=== PATIENT | female | born 2000 | race Asian ===

== ENCOUNTER → 2020-06-08 09:46 | Outpatient (BNVA) | payer BC, SELFPAY | PROVIDERS: Visit Provider Obstetrics & Gynecology | DX: Z76.89 Persons encountering health services in other specified circumstances (principal) ==

== ENCOUNTER → 2020-06-10 11:06 | Outpatient (BNVA) | payer BC, SELFPAY | PROVIDERS: Visit Provider Advanced Practice Midwife | DX: Z13.89 Encounter for screening for other disorder (principal) ==

== ENCOUNTER 2020-08-10 12:14 | Outpatient (REF) | payer BC, SELFPAY ==
--- NOTE | 2020-08-10 12:42 | XR_ITS ---
EXAMINATION: XR CHEST CLINICAL INFORMATION: Cough COMPARISON: Previous chest x-ray most recent February 2020 TECHNIQUE: 2 views of the chest were obtained. FINDINGS: The cardiac and mediastinal contours are normal. There is airspace disease seen in the right middle lobe suggestive of pneumonia. The lungs are otherwise clear. There is no pleural effusion or pneumothorax. Bony structures are unremarkable. XR/XR chest 2V IMPRESSION: Right middle lobe pneumonia.
[2020-08-10 14:02] LABS: MANUAL DIFF FLAG NO
[2020-08-10 14:11] LABS: Basophils Percent Auto 0.2 % (0-2); Hematocrit 42.2 % (37-47); Hemoglobin 13.8 g/dl (12.0-16.0); Imm Gran Abs Auto 0.01 X10*3/uL (0.00-0.03); Imm Gran Pct Auto 0.2 % (0.0-0.4); Lymphocytes Absolute Auto 2.3 X10*3/uL (1.2-4.9); Lymphocytes Percent Auto 35.2 % (20-40); Mean Corpuscular HGB Conc 32.7 g/dl (31.0-35.0); Mean Corpuscular Hemoglobin 29.6 pg (27.0-33.0); Mean Corpuscular Volume 90.6 fL (80-98); Mean Platelet Volume 11.4 fL (9.4-12.3); Monocytes Absolute Auto 0.6 X10*3/uL (0.1-1.2); Monocytes Percent Auto 9.2 % (2-11); Neutrophils Absolute Auto 3.5 X10*3/uL (2.0-8.3); Neutrophils Percent Auto 55.2 % (45-73); Platelet Count 201 X10*3/uL (160-400); Red Blood Count 4.66 X10*6/uL (4.20-5.50); Red Cell Distribution Width 13.7 % (11.0-16.0); White Blood Count 6.4 X10*3/uL (4.8-10.8)
== END 2020-08-10 12:15 | disposition home or self-care (01) ==
LOC: HO.LAB 12:14
PROVIDERS: Visit Provider Internal Medicine
DX: R05 Cough (principal); Z20.822 Contact with and (suspected) exposure to COVID-19; R42 Dizziness and giddiness
CPT/HCPCS: 36415; 71046; 85025; U0003; U0005

== ENCOUNTER → 2020-09-07 10:59 | Outpatient (BNVA) | payer BC, SELFPAY | PROVIDERS: PCP Internal Medicine; Visit Provider Advanced Practice Midwife | DX: Z30.42 Encounter for surveillance of injectable contraceptive (principal) | CPT/HCPCS: 96372 ==

== ENCOUNTER 2020-10-11 09:32 | Emergency (ER) | payer BC, SELFPAY ==
[2020-10-11 09:48] VITALS: BP 125/81; PULSE 94; RESP 18; TEMP 36.8; O2SAT 96; BMI 41.5
[2020-10-11 09:59] VITALS: BP 117/81; PULSE 80; RESP 16; TEMP 36.9; O2SAT 96
--- NOTE | 2020-10-11 10:02 | ED.ALLEREA ---
HPI - Allergic Reaction General Chief complaint: Allergic Reaction Stated complaint: hives, abd pain Time Seen by Provider: 10/11/20 09:41 Source: patient Mode of arrival: ambulatory Limitations: no limitations History of Present Illness HPI narrative: 20 yo female here with generalized hives, abdominal discomfort since yesterday. Patient seen at urgent care yesterday and prescribed prednisone. Patient tells me that she took 1 dose but this had continued symptoms. No vomiting, diarrhea, fevers, chills, difficulty breathing or swallowing. Related Data Home Medications Medication Instructions Recorded Confirmed albuterol sulfate 90 mcg/actuation 1 puff INHALATION QID 06/08/20 08/09/20 aerosol inhaler Previous Rx's Medication Instructions Recorded azithromycin 250 mg tablet 250 mg PO DAILY 5 Days #6 tab 08/09/20 medroxyprogesterone 150 mg/mL 150 mg IM [id number] #1 ml 09/02/20 intramuscular syringe diphenhydramine HCl [Benadryl] 25 mg PO Q6H PRN #20 cap 10/11/20 famotidine 40 mg PO DAILY #10 tab 10/11/20 loratadine [Claritin] 10 mg PO DAILY PRN #20 tab 10/11/20 Allergies Allergy/AdvReac Type Severity Reaction Status Date / Time No Known Allergies Allergy Verified 10/11/20 09:48 Review of Systems Review of Systems: Yes all other systems are reviewed and are negative Constitutional: Constitutional: Reports no additional constitutional complaints, Denies body ache(s), Denies chills, Denies fever(s), Denies headache(s) and Denies weakness Eyes: Eyes: Reports no additional eye complaints and Denies change in vision ENT: Reports system reviewed and no additional complaints, except as documented, Denies dizziness, Denies headache(s), Denies nasal congestion, Denies nasal discharge and Denies neck pain Cardiovascular: Cardiovascular: Reports no additional cardiovascular complaints, Denies chest pain, Denies leg edema and Denies dyspnea Respiratory: Respiratory: Reports no additional respiratory complaints, Denies cough and Denies dyspnea Gastrointestinal: Gastrointestinal: Reports no additional gastrointestinal complaints, Reports abdominal pain, Denies diarrhea, Denies nausea and Denies vomiting Genitourinary: Genitourinary: Reports no additional female genitourinary complaints and Denies urinary incontinence Musculoskeletal: Musculoskeletal: Reports no additional musculoskeletal complaints, Denies back pain, Denies arthralgias, Denies joint swelling, Denies neck pain, Denies numbness and Denies tingling Integumentary/Breasts: Skin/Breast: Reports system reviewed and no additional complaints, except as docu and Reports rash Neurologic: Reports system reviewed and no additional complaints, except as documented, Denies Abnormal speech present, Denies dizziness, Denies headache(s), Denies numbness, Denies tingling and Denies weakness PMFSH Past Medical History Attestation statement: The following information was validated with the patient. Source: old records reviewed and nursing notes reviewed Medical History Asthma CKD (chronic kidney disease) Cough Depression Dizziness Social History Social History Alcohol intake: current Alcohol intake frequency: holidays/special occasions only Alcohol type: wine and hard liquor Smoking Status: Never smoker Use of substances other than those prescribed or required for medical reasons: Yes Substance Use Type: Marijuana Substance Use Frequency: Daily Advance Directives: Yes Advance Directives Information Provided: Yes Advance Directives on File: No Sexual orientation: Bisexual Gender identity: female Physical Exam Vital Signs: Vital Signs: Last Vital Signs Temp 98.4 F 10/11/20 12:12 Pulse 84 10/11/20 12:12 Resp 16 10/11/20 12:12 BP 113/75 10/11/20 12:12 Pulse Ox 98 10/11/20 12:12 Body Mass Index 41.5 Const: General: cooperative, healthy appearing, comfortable and no acute distress Orientation/consciousness: patient oriented x3 Limitations: no limitations HENMT: Other: No angioedema Head: Yes normal to inspection Ears: hearing grossly normal bilaterally General nose exam: Normal external nose present Face and sinus: Yes normal facial exam Mouth: Normal oral and palatal mucosa present Throat: Yes posterior oropharynx normal, Yes tonsils normal and Yes uvula midline Eyes: General: appearance normal, both eyes and all related structures Pupils: Equal, round and reactive pupils present Neck: Neck: Yes normal visual inspection Chest: Chest palpation & inspection: normal inspection of the chest Resp: Other: No stridor Effort & Inspection: normal respiratory effort Auscultation: clear to auscultation bilaterally Cardio: Rate: regular rate Rhythm: regular rhythm Peripheral pulses: Peripheral pulses 2+ throughout GI: Inspection: Yes normal to inspection Palpation (GI): Soft to palpation and nontender Auscultation: normal bowel sounds Back/Spine/Pelvis: Thoracic/Lumbar Spine: thoracic and lumbar spine normal to inspection Skin: Other: Generalized urticarial rash over the trunk, upper extremities, lower extremities, several lesions over the face. General skin exam: no rashes or lesions noted Neuro: General: patient oriented x3, no focal motor deficits and normal sensation to monofilament Cranial nerves: Yes Equal, round and reactive pupils present Cognition (Neuro): normal cognition Speech: No Abnormal speech present Gait exam (Neuro): Normal gait present Motor exam (neuro): 5/5 motor strength present throughout Extrem: General: Yes normal to inspection Course Course Course Narrative: 20-year-old female here with a generalized rash and abdominal discomfort since yesterday. Exam is consistent with allergic reaction. Abdomen is soft and nontender likely secondary to allergies. No airway involvement, angioedema, clear lungs sounds. Hemodynamically stable. Did take 40 of prednisone this morning. Will place PIV and give IV Solu-Medrol, Pepcid and Benadryl and reassess. 1215-patient monitored in the emergency department for 2.5 hours. Symptoms have significantly improved. Will plan to discharge patient for her to continue her prednisone course. Add Pepcid, Benadryl, Claritin. Reviewed worrisome signs and symptoms of when to return to the emergency department. Comfortable discharge home. MDM - Allergic Reaction Medical Records Attestation: I reviewed the patient's medical records. Lab Data Attestation: I reviewed the patient's lab results. Discharge Plan Discharge Clinical Impression: Allergic reaction Patient Disposition: Home, Self-Care Instructions: General Allergic Reaction (ED) Additional Instructions: Use sensitive, fragrance free soaps/products/lotions, free and clear laundry detergents Keep a diary of products used Follow-up with your PCP and you may request a referral to an invoice classification clerk for persistent symptoms Continue your prednisone. Next dose tomorrow. Prescriptions: New famotidine 40 mg tablet 40 mg PO DAILY Qty: 10 RF: 0 diphenhydramine HCl [Benadryl] 25 mg capsule 25 mg PO Q6H PRN (Reason: allergy symptoms) Qty: 20 RF: 0 loratadine [Claritin] 10 mg tablet 10 mg PO DAILY PRN (Reason: allergy symptoms) Qty: 20 RF: 0 No Action medroxyprogesterone [Depo-Provera] 150 mg/mL syringe 150 mg IM [id number] Qty: 1 RF: 0 azithromycin [Zithromax] 250 mg tablet 250 mg PO DAILY 5 Days Qty: 6 RF: 0 albuterol sulfate [ProAir HFA] 90 mcg/actuation HFA aerosol inhaler 1 puff inhalation QID RF: 0 Referrals: Cherie Luna MD [Primary Care Provider] - 2 days Stand Alone Forms: Work/School Release Interventions: ED Discharge Assessment Last Done: 10/11/20 12:21 Discharge Date/Time: 10/11/20 12:22
[2020-10-11] MEDS: diphenhydrAMINE HCL 50 MG/ML VIAL IVPUSH (10:21)
[2020-10-11] MEDS: methylPREDNISolone Sod Succ 125 MG/2 ML VIAL 80 MG IVPUSH (10:22)
[2020-10-11] MEDS: Famotidine/PF 20 MG/2 ML VIAL IVPUSH (10:26)
[2020-10-11 12:12] VITALS: BP 113/75; PULSE 84; RESP 16; TEMP 36.9; O2SAT 98
== END 2020-10-11 12:22 | disposition home or self-care (01) ==
PROVIDERS: Emergency Provider Emergency Medicine; PCP Internal Medicine
DX: L23.9 Allergic contact dermatitis, unspecified cause (principal); R10.9 Unspecified abdominal pain; F12.90 Cannabis use, unspecified, uncomplicated; Z79.899 Other long term (current) drug therapy
CPT/HCPCS: 96374; 96375; 99284; J1200; J2930

== ENCOUNTER 2020-10-19 13:46 | Outpatient (REF) | payer BC, SELFPAY ==
[2020-10-20 09:59] LABS: BV Int Neg Control Negative (Negative); BV Int Pos Control Positive (Positive)
[2020-10-20 12:31] LABS: CT PCR NOT DETECTED (Not Detect.); NG PCR NOT DETECTED (Not Detect.)
== END 2020-10-19 13:47 | disposition home or self-care (01) ==
LOC: HO.LAB 13:46
PROVIDERS: PCP Internal Medicine; Visit Provider Obstetrics & Gynecology
DX: Z01.419 Encounter for gynecological examination (general) (routine) without abnormal findings (principal); N39.3 Stress incontinence (female) (male)
CPT/HCPCS: 87480; 87491; 87510; 87591; 87660; 88142

== ENCOUNTER 2021-01-19 14:00 | Outpatient (RCR) | payer BC, SELFPAY ==
--- NOTE | 2020-11-11 15:28 | MHC.PT.EP ---
[facility] [place] Office [place] Office [place] Office [address] Otf [address] [facility] [phone] F: [phone] F: [phone] F: [phone] F: [phone] Physical Therapy Plan of Care Date of Evaluation: Date of Surgery: Diagnosis: stress Urinary Incontinence Assessment: The patient arrived reporting limitations due to stress urinary incontinence. She gave consent for a pelvic exam. The patient was found to have weakness in her 2nd and 3rd layer of her pelvic floor. The patient's PERF scale was 2/4/2//3. She had poor pelvic muscle excursion and isolation of the PFM was absent. Poor kinesthetic awareness noted in the pelvic floor. She was activating her gluteal muscles as substitution. Pelvic Floor Internal assessment: strength 2/5, endurance contraction 4 seconds, poor activation for quick flicks 3 reps in 10 seconds. I was unable to complete the exam to assess for prolapse because the pt reported she was uncomfortable and I stopped the internal exam immediately. The patient got dressed in privacy and the rest of the session was done with her clothes on, hands off with patient education. Alison consumes a significant amount of caffeine. I educated her that the caffeine is a bladder irritant. She is an excellent candidate for skilled Pelvic Floor therapy. Frequency and Duration: The patient will be seen 1x/week x 6 weeks. Short Term Goals: 1. Pt to be able to correctly activate her PFM to allow improved support to bowel and bladder. 2. Pt to be able to demonstrate a pre contraction before a cough 1. Pt to be able to voluntarily relax her pelvic floor and to have improved symmetry in resting tone between left and right side. Junior Business Analyst Goals: 1. Pt to be able to show improved PFM contraction during functional movements such as a bridge or squat to help prevent or limit POP. 2. Pt to reduce # of episodes of BLANCHE during the day by 50% to help improve quality of life and reduce pad usage. 3. Pt to be independent with her final HEP for PFM in order to help maintain gains made in therapy. Treatment Plan: Modalities to reduce pain, spasms and effusion. Manual therapy to restore motion and function. Therapeutic exercise to improve strength and flexibility. Neuromuscular re-education for posture and balance. Therapeutic activities to return to functional activities of daily living. Electronically signed by: Sera Weldon PT DPT Please sign and return to therapist. Thank you for your referral.
== END 2021-01-20 08:00 | disposition home or self-care (01) ==
LOC: HO.PT 14:00
PROVIDERS: Visit Provider Obstetrics & Gynecology
DX: N39.3 Stress incontinence (female) (male) (principal)
CPT/HCPCS: 97110; 97112; 97162

== ENCOUNTER 2021-02-15 09:12 | Outpatient (REF) | payer BC, SELFPAY ==
[2021-02-15 09:46] LABS: MANUAL DIFF FLAG NO
[2021-02-15 09:57] LABS: Basophils Percent Auto 0.3 % (0-2); Eosinophils Percent Auto 0.9 % (0-4); Hematocrit 42.8 % (37-47); Hemoglobin 13.5 g/dl (12.0-16.0); Imm Gran Abs Auto 0.02 X10*3/uL (0.00-0.03); Imm Gran Pct Auto 0.2 % (0.0-0.4); Lymphocytes Absolute Auto 2.9 X10*3/uL (1.2-4.9); Lymphocytes Percent Auto 32.9 % (20-40); Mean Corpuscular HGB Conc 31.5 g/dl (31.0-35.0); Mean Corpuscular Hemoglobin 29.3 pg (27.0-33.0); Mean Corpuscular Volume 92.8 fL (80-98); Mean Platelet Volume 10.6 fL (9.4-12.3); Monocytes Absolute Auto 0.7 X10*3/uL (0.1-1.2); Monocytes Percent Auto 8.1 % (2-11); Neutrophils Absolute Auto 5.1 X10*3/uL (2.0-8.3); Neutrophils Percent Auto 57.6 % (45-73); Platelet Count 254 X10*3/uL (160-400); Red Blood Count 4.61 X10*6/uL (4.20-5.50); Red Cell Distribution Width 13.8 % (11.0-16.0); White Blood Count 8.8 X10*3/uL (4.8-10.8)
[2021-02-15 09:58] LABS: Eosinophils Absolute Auto 0.1 X10*3/uL (0.0-0.4)
[2021-02-15 10:20] LABS: Alanine Aminotransferase 21 U/L (0-31); Albumin Level 3.9 g/dL (3.5-5.0); Alkaline Phosphatase 56 U/L (39-117); Anion Gap 13 (12-20); Aspartate Amino Transferase 18 U/L (5-31); Bilirubin Total 0.3 mg/dL (0.0-1.0); Blood Urea Nitrogen 16 mg/dL (9-16); Calcium 8.7 mg/dL (8.4-10.2); Carbon Dioxide 22 mmol/L (22-29); Chloride 110 mmol/L (96-108); Cholesterol 126 mg/dL; Estimated Glomerular Filt Rate > 60; Glucose Fasting 95 mg/dL (60-99); HDL Cholesterol 36 mg/dL; LDL Cholesterol Calculated 81 mg/dl; Potassium 4.5 mmol/L (3.3-5.1); Sodium 140 mmol/L (135-145); Total Protein 6.5 g/dL (6.5-8.0); Triglycerides 47 mg/dL
[2021-02-15 11:11] LABS: Thyroid Stimulating Hormone 0.71 uIU/mL (0.32-4.0)
[2021-02-20 05:32] LABS: Vitamin D 25-OH, D2 <4 ng/mL; Vitamin D 25-OH, D3 12 ng/mL; Vitamin D 25-OH, Total 12 ng/mL (30-100)
== END 2021-02-15 09:13 | disposition home or self-care (01) ==
LOC: HO.LAB 09:12
PROVIDERS: PCP Internal Medicine; Visit Provider Internal Medicine
DX: D64.9 Anemia, unspecified (principal); E66.01 Morbid (severe) obesity due to excess calories; E78.5 Hyperlipidemia, unspecified; E55.9 Vitamin D deficiency, unspecified
CPT/HCPCS: 36415; 80053; 80061; 82306; 84443; 85025

== ENCOUNTER 2021-03-04 13:52 | Outpatient (REF) | payer BC, SELFPAY ==
--- NOTE | ~2021-03-04 | XR_ITS ---
EXAMINATION: XR CHEST CLINICAL INFORMATION: Fatigue COMPARISON: 08/10/2020. TECHNIQUE: 2 views of the chest were obtained. FINDINGS: No significant abnormality is noted involving the heart, lungs, mediastinum, bony thorax or soft tissues. XR/XR chest 2V IMPRESSION: Unremarkable examination.
== END 2021-03-04 13:53 | disposition home or self-care (01) ==
LOC: HO.HMGCX 13:52
PROVIDERS: PCP Internal Medicine; Visit Provider Hospitalist
DX: Z13.89 Encounter for screening for other disorder (principal)
CPT/HCPCS: 71046

== ENCOUNTER 2021-05-30 16:03 | Emergency (ER) | payer OTHER, SELFPAY ==
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
[2021-05-30 17:51] VITALS: BP 118/70; PULSE 91; RESP 18; TEMP 36.8; O2SAT 98; BMI 41.5
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
[2021-05-30 18:27] VITALS: BP 126/75; PULSE 90; RESP 16; TEMP 37.1; O2SAT 97
== END 2021-05-30 19:15 | disposition home or self-care (01) ==
PROVIDERS: Emergency Provider Emergency Medicine; PCP Student in an Organized Health Care Education/Training Program
DX: M54.6 Pain in thoracic spine (principal); M25.511 Pain in right shoulder; M54.50 Low back pain, unspecified; Z79.899 Other long term (current) drug therapy
CPT/HCPCS: 72072; 72100; 73030; 73070; 99282; 99283

== ENCOUNTER 2021-10-09 14:37 | Outpatient (REF) | payer BC, SELFPAY ==
[2021-10-09 14:47] LABS: MANUAL DIFF FLAG NO
[2021-10-09 14:55] LABS: Basophils Percent Auto 0.2 % (0-2); Eosinophils Percent Auto 0.2 % (0-4); Hematocrit 44.2 % (37.0-47.0); Imm Gran Abs Auto 0.02 X10*3/uL (0.00-0.03); Imm Gran Pct Auto 0.2 % (0.0-0.4); Lymphocytes Absolute Auto 3.5 X10*3/uL (1.2-4.9); Lymphocytes Percent Auto 28.7 % (20-40); Mean Corpuscular HGB Conc 31.7 g/dl (31.0-35.0); Mean Corpuscular Hemoglobin 29.5 pg (27.0-33.0); Mean Corpuscular Volume 93.1 fL (80.0-98.0); Mean Platelet Volume 10.5 fL (9.4-12.3); Monocytes Absolute Auto 1.1 X10*3/uL (0.1-1.2); Monocytes Percent Auto 8.9 % (2-11); Neutrophils Absolute Auto 7.6 x10*3/uL (2.0-8.3); Neutrophils Percent Auto 61.8 % (45-73); Platelet Count 295 X10*3/uL (160-400); Red Blood Count 4.75 X10*6/uL (4.20-5.50); Red Cell Distribution Width 13.2 % (11.0-16.0); White Blood Count 12.3 X10*3/uL (4.8-10.8)
[2021-10-09 15:46] LABS: Anion Gap 15 (12-20); Blood Urea Nitrogen 9 mg/dL (9-16); Calcium 9.4 mg/dL (8.4-10.2); Carbon Dioxide 23 mmol/L (22-29); Chloride 104 mmol/L (96-108); Estimated Glomerular Filt Rate > 60; Potassium 4.3 mmol/L (3.3-5.1); Sodium 138 mmol/L (135-145)
[2021-10-09 15:55] LABS: Appearance Urine CLEAR; Color Urine YELLOW; Glucose Urine UA NEG (NEG); Leukocyte Esterase Urine NEG (NEG); Nitrite Urine NEG (NEG); Specific Gravity - Urine >= 1.030 (1.005-1.025); Urine Blood 1+ (NEG); Urine Ketones NEG (NEG); Urine Protein NEG (NEG-TRACE)
[2021-10-09 16:09] LABS: Vitamin D 25-OH Total 7.2 ng/mL (>30)
[2021-10-09 16:20] LABS: Creatinine Urine 116.44 mg/dL; Total Protein Urine Random < 7 mg/dL (<12)
[2021-10-09 16:43] LABS: Bacteria Urine 2+ /LPF; Squamous Epithelial Cell Urine 2+ /LPF; WBC Urine 0-2 /HPF (0-4)
== END 2021-10-09 14:38 | disposition home or self-care (01) ==
LOC: HO.LAB 14:37
PROVIDERS: PCP Internal Medicine; Visit Provider Internal Medicine Nephrology
DX: N02.0 Recurrent and persistent hematuria with minor glomerular abnormality (principal); N18.31 Chronic kidney disease, stage 3a
CPT/HCPCS: 36415; 80051; 81001; 81003; 82306; 82310; 82565; 84156; 84520; 85025

== ENCOUNTER 2021-10-24 13:39 | Outpatient (REF) | payer BC, SELFPAY ==
[2021-10-25 12:11] LABS: BV Int Neg Control Negative (Negative); BV Int Pos Control Positive (Positive)
[2021-10-25 12:41] LABS: CT PCR NOT DETECTED (Not Detect.); NG PCR NOT DETECTED (Not Detect.)
== END 2021-10-24 13:40 | disposition home or self-care (01) ==
LOC: HO.LAB 13:39
PROVIDERS: PCP Internal Medicine; Visit Provider Advanced Practice Midwife
DX: Z01.411 Encounter for gynecological examination (general) (routine) with abnormal findings (principal); R10.2 Pelvic and perineal pain; N88.9 Noninflammatory disorder of cervix uteri, unspecified; L68.0 Hirsutism; Z20.2 Contact with and (suspected) exposure to infections with a predominantly sexual mode of transmission
CPT/HCPCS: 87480; 87491; 87510; 87591; 87660; 88142

== ENCOUNTER 2021-11-09 15:41 | Outpatient (REF) | payer BC, SELFPAY ==
--- NOTE | ~2021-11-09 | US_ITS ---
EXAMINATION: US PELVIS CLINICAL INFORMATION: Irregular menstruation COMPARISON: None TECHNIQUE: Ultrasound of the pelvis is performed using both transabdominal and transvaginal transducers along with Doppler. Transvaginal imaging is performed due to inadequate visualization transabdominally. FINDINGS: The uterus is anteverted and measures 9 x 2.9 x 3 cm in dimension. No focal uterine lesion is seen. Endometrial thickness is normal measuring 0.4 cm. The right ovary is enlarged and measures 4.8 x 2.6 x 5.1 cm. There is a 3.4 x 2.6 x 3.1 cm simple right ovarian cyst. The left ovary is normal appearing and measures 2.5 x 1.7 1.3 cm. There is no fluid in the pelvis. US/US pelvic and transvaginal IMPRESSION: 3.4 x 2.6 x 3.1 cm simple right ovarian cyst otherwise unremarkable exam.
[2021-11-09 17:29] LABS: Thyroid Stimulating Hormone 1.16 uIU/mL (0.32-4.0)
[2021-11-11 04:42] LABS: DHEA Sulfate 194 mcg/dL (14-349); Prolactin 5.3 ng/mL
[2021-11-15 21:56] LABS: Testosterone, Free 5.7 pg/mL (0.1-6.4); Testosterone, Total 35 ng/dL (2-45)
== END 2021-11-09 15:42 | disposition home or self-care (01) ==
LOC: HO.US 15:41
PROVIDERS: PCP Internal Medicine; Visit Provider Advanced Practice Midwife
DX: L68.0 Hirsutism (principal); N92.6 Irregular menstruation, unspecified; R10.2 Pelvic and perineal pain
CPT/HCPCS: 36415; 76830; 76856; 82627; 83498; 84146; 84402; 84403; 84443

== ENCOUNTER → 2021-11-23 15:44 | Outpatient (BNVA) | payer BC, SELFPAY | PROVIDERS: PCP Internal Medicine; Visit Provider Advanced Practice Midwife | DX: Z13.89 Encounter for screening for other disorder (principal) ==

== ENCOUNTER → 2022-04-04 11:06 | Outpatient (BNVA) | payer BC, SELFPAY | PROVIDERS: PCP Internal Medicine; Visit Provider Dietitian, Registered | DX: E66.01 Morbid (severe) obesity due to excess calories (principal); Z68.41 Body mass index [BMI] 40.0-44.9, adult | CPT/HCPCS: 97802 ==

== ENCOUNTER → 2022-07-31 15:26 | Outpatient (BNVA) | payer BC, SELFPAY | PROVIDERS: PCP Internal Medicine; Visit Provider Internal Medicine Endocrinology, Diabetes & Metabolism | DX: L68.0 Hirsutism (principal) ==

== ENCOUNTER → 2022-08-01 14:20 | Outpatient (BNVA) | payer BC, SELFPAY | PROVIDERS: PCP Internal Medicine; Visit Provider Dietitian, Registered | DX: E66.01 Morbid (severe) obesity due to excess calories (principal); N18.9 Chronic kidney disease, unspecified; Z71.3 Dietary counseling and surveillance | CPT/HCPCS: 97803 ==

== ENCOUNTER → 2022-09-05 08:46 | Outpatient (BNVA) | payer BC, SELFPAY | PROVIDERS: PCP Internal Medicine; Visit Provider Advanced Practice Midwife | DX: Z13.89 Encounter for screening for other disorder (principal) ==

== ENCOUNTER 2023-01-16 14:26 | Outpatient (AMB) | payer BC, SELFPAY ==
[2023-01-16 14:48] VITALS: BMI 42.6
--- NOTE | 2023-01-16 14:48 | A.OFFVIS_ITS ---
Intake VS Expanded 01/16/23 14:48 Height 5 ft 5 in Weight 255 lb 11.779 oz BMI 42.6 Intake Visit Reasons: obesity Allergies No Known Allergies Allergy (Verified 09/05/22 08:53) HPI Nutrition Presentation Details Pt presents for MNT f/u for Obesity, PCOS. Pt reports continuing to gradually work on diet modifications. Pt comes with questions regarding fats/carbs, options for eating out Most Recent Diabetes Results: No Data to Display PFS Medical History Asthma CKD (chronic kidney disease) Cough Depression Dizziness CHRISTO (generalized anxiety disorder) Migraine with aura Morbid obesity Severe major depression Surgical History No history of previous surgery Family History Mother Heart attack Father Deaf Family/Other Substance use disorder Mental health disorder Social History Housing: House Housing Other:: living with parents Alcohol intake: current Alcohol intake frequency: holidays/special occasions only Alcohol type: wine and hard liquor Patient Tobacco Use Status: Never used Tobacco e-Cigarette/Vaping Use: Never Used Second Hand Smoke Exposure: No Substance Use Type: Marijuana service: No Current occupational status: employed Current occupational exposures/hazards: No Sexual orientation: Bisexual Gender identity: Female Cognitive needs: No Hearing needs: No Vision needs: No Assessment & Plan Assessment & Plan (1) Morbid obesity due to excess calories: Code(s): E66.01 - Morbid (severe) obesity due to excess calories Plan: Educate Pt on 2300 [address] meal plan ? Used wt : 120 kg (03/2022), 116 kg (01/2023) Est kcal as per MSJ: 2350 (40% carb, 30% fat/prot) Est fluid needs: 3000 ml/d (25 ml/kg bw) Rec fiber: increase to 8-10 g per day and gradually increase to 25 g/d or as tolerated Rec Na: < 2000 mg /d Educate patient on: (R= Reviewed, V = verbalizes understanding N/R= Needs review N/A= not applicable) * Food sources of carbohydrates and serving adequate serving sizes : R * Difference between complex carbohydrates and simple carbohydrates, role of fiber: R * Differences between fats (MUFA/PUFA/saturated fats, trans fats) and food sources of various fats: R low fat basic * Food sources of sodium and salt and healthy modifications for heart health and kidney health: N/R * Vitamins and minerals: N/R * How to interpret food labels: R * Healthy Plate method concept: R * Physical activity: benefits and precaution: R Patient Instructions: Modify on portions of high fat protein foods - see low fat alternatives Continue working on reducing sugars (pastries/beverages) Engage in physical activity goal 30 min walk 3 times a week or as tolerated Coding Level of Care Code Nutr Indiv Subseq ([id number]) Diagnoses Morbid obesity due to excess calories E66.01 Time Spent (min) 30
== END 2023-01-16 15:27 | disposition home or self-care (01) ==
PROVIDERS: PCP Internal Medicine; Referring Provider Internal Medicine; Visit Provider Dietitian, Registered
DX: E66.01 Morbid (severe) obesity due to excess calories (principal)

== ENCOUNTER → 2023-01-16 14:26 | Outpatient (BNVA) | payer BC, SELFPAY | PROVIDERS: Visit Provider Dietitian, Registered | DX: E66.01 Morbid (severe) obesity due to excess calories (principal); Z71.3 Dietary counseling and surveillance; Z68.41 Body mass index [BMI] 40.0-44.9, adult | CPT/HCPCS: 97803 ==

== ENCOUNTER 2023-02-19 15:59 | Outpatient (AMB) | payer BC, SELFPAY ==
[2023-02-19 16:06] VITALS: BP 106/72; PULSE 100; O2SAT 96; BMI 42.5
--- NOTE | 2023-02-19 16:06 | MHC.PC.OV ---
Vital Signs 02/19/23 16:06 Height 5 ft 5 in Weight 255 lb 4 oz BMI 42.5 BP 106/72 Blood Pressure Location Lt brachial Position Sitting Pulse 100 Pulse Source Pulse Oximeter Pulse Oximetry (%) 96 Oxygen Delivery Method Room Air Intake Visit Reasons: physical exam Intake Note: Patient is here today for a physical. Human Development Professor Required: No Accompanied by: Self / Same As Patient Allergies No Known Allergies Allergy (Verified 02/19/23 16:18) Medication List - Last Reconciled 02/19/23 by Cherie Beauchamp MD cholecalciferol (vitamin D3) 50 mcg PO DAILY 90 days norethindrone (contraceptive) (Jessica) 0.35 mg PO DAILY Tobacco use date assessed: 02/19/23 Dental Screening Dental Screen Date: 02/19/23 Did you have a dental visit in the last 12 months?: No Did you have a dental problem in the last 6 months where you did not have access to dental care?: No Was dental information given to patient?: Patient has dentist HPI HPI Comments History of Present Illness Details This is a 22-year-old female with morbid obesity that comes for her physical exam. She declines will of surgery but says that is follow by a payroll human resources assistant for her morbid obesity. No chest pain or shortness of breath. Pap smear was last year. [facility], [facility] Medical History Asthma CKD (chronic kidney disease) Cough Depression Dizziness CHRISTO (generalized anxiety disorder) Migraine with aura Morbid obesity Severe major depression Surgical History No history of previous surgery Family History Mother Heart attack Father Deaf Family/Other Substance use disorder Mental health disorder Social History Housing: House Housing Other:: living with parents Alcohol intake: current Alcohol intake frequency: holidays/special occasions only Alcohol type: wine and hard liquor Patient Tobacco Use Status: Never used Tobacco e-Cigarette/Vaping Use: Never Used Second Hand Smoke Exposure: No Substance Use Type: Marijuana service: No Current occupational status: employed Current occupational exposures/hazards: No Sexual orientation: Bisexual Gender identity: Female Cognitive needs: No Hearing needs: No Vision needs: No Questionnaire PHQ-9 Over the last 2 weeks, how often have you been bothered by any of the following problems? 1. Little interest or pleasure in doing things: not at all 2. Feeling down, depressed, or hopeless: not at all 3. Trouble falling or staying asleep, or sleeping too much: not at all 4. Feeling tired or having little energy: not at all 5. Poor appetite or overeating: not at all 6. Feeling bad about yourself - or that you are a failure or have let yourself or your family down: not at all 7. Trouble concentrating on things, such as reading the newspaper or watching television: not at all 8. Moving or speaking so slowly that other people could have noticed. Or the opposite - being so fidgety or restless that you have been moving around a lot more than usual: not at all 9. Thoughts that you would be better off or of hurting yourself in some way: not at all Total score: 0 Depression Screening Interpretation: Negative 16774 - PHQ-9 Billing: Yes Source: Developed by Drs. Maykel Conroy, Julia Alejandro, Félix Smiley and colleagues, with an educational dutch from [employer]. Thrive Questionnaire Date Thrive assessed: 02/19/23 I am a: Patient What is your living situation today?: I have a steady place to live Within the past 12 months, did the food you bought not last and you didn't have the money to get more?: Never true Within the past 12 months, did you worry whether your food would run out before you got money to buy more?: Never true Do you have trouble paying for medicines?: No Do you have trouble getting transportation to medical appointments?: No Do you have trouble paying your heating and electricity bill?: No Do you have trouble taking care of your child, family member or friend?: No Do you have trouble with day-to-day activities such as bathing, preparing meals, shopping, managing finances, etc.?: No Are you currently unemployed and looking for a job?: No Are you interested in more education?: No Please select the resources that you would like help with: None Currently or been in a relationship where the following occur: no concerns reported AUDIT C Alcohol Use Questionnaire (AUDIT-C) 1. How often do you have a drink containing alcohol?: Monthly or less 2. How many drinks containing alcohol do you have on a typical day when you are drinking?: 1 or 2 3. How often do you have six or more drinks on one occasion?: Never Total Score: 1 Score Reviewed/Action Taken: No CHRISTO-7 AMB Questionnaire CHRISTO-7 Date CHRISTO - 7 assessed: 02/19/23 Feeling nervous, anxious, or on edge: 0 = Not at all Not being able to stop or control worryin = Not at all Worrying too much about different things: 0 = Not at all Trouble relaxin = Not at all Being so restless that it is hard to sit still: 0 = Not at all Becoming easily annoyed or irritable: 0 = Not at all Feeling afraid as if something awful might happen: 0 = Not at all Total CHRISTO-7 score (0-4 normal; 5-9 mild; 10-14 moderate; 15-21 severe): 0 Source: Developed by Drs. Maykel Conryo, Julia Alejandro, Félix Smiley and colleagues, with an educational dutch from [employer]. CHRISTO-7 Assessment Billing CHRISTO-7 Assessment Tool: CHRISTO-7 Assessment 13213 Review of Systems Const All systems reviewed & are unremarkable except as noted in HPI and below Eyes Reports no additional complaints, Denies change in vision and Denies other visual disturbances Card Denies chest pain at rest, Denies chest pain with activity, Denies edema, Denies irregular heart rhythm, Denies claudication, Denies dyspnea, Denies dyspnea on exertion, Denies orthopnea, Denies paroxysmal nocturnal dyspnea and Denies slow heart rate Resp Denies cough, Denies dyspnea and Denies dyspnea on exertion GI Denies abdominal pain, Denies change in bowel habits, Denies excessive flatus, Denies nausea and Denies vomiting Denies urinary incontinence, Denies urinary hesitancy and Denies urinary urgency Musc Denies abnormal gait, Denies atrophy, Denies deformity and Denies limited range of motion Skin/Breast Denies bleeding lesions, Denies changing lesions and Denies rash Neuro Denies abnormal gait and Denies lack of coordination Physical exam (Primary Care) Vital Signs: Last Vital Signs Pulse 100 02/19/23 16:06 BP 106/72 02/19/23 16:06 Pulse Ox 96 02/19/23 16:06 Oxygen Delivery Method Room Air 02/19/23 16:06 BMI result Body Mass Index 42.5 Tobacco/Smoking Status: Tobacco use Status Tobacco use date assessed 02/19/23 02/19/23 16:13 Patient Tobacco Use Status Never used Tobacco 02/19/23 16:08 e-Cigarette/Vaping Use Never Used 02/19/23 16:08 PHQ-9: PHQ-9 Score PHQ-9: Total score 0 02/19/23 16:20 Depression Screening Interpretation: Negative Thrive Assessment: Date of Thrive Assessment Date Thrive assessed 02/19/23 02/19/23 16:13 Currently or been in a relationship where the following occur: no concerns reported Const Orientation/consciousness: patient oriented x3 HENMT Head: Yes normal to inspection, Yes normocephalic and Yes atraumatic Ears: external ears normal Eyes General: appearance normal, both eyes and all related structures Eyelids: Yes eyelids normal Conjunctivae: conjunctivae normal Neck Neck: Yes normal visual inspection and Yes supple Resp Effort & Inspection: normal respiratory effort Auscultation: clear to auscultation bilaterally Cardio Jugular venous distension: no JVD Rate: regular rate Rhythm: regular rhythm Heart sounds: S1 normal heart sound present and S2 normal heart sound present GI Inspection: Yes normal to inspection Palpation (GI): Soft to palpation and nontender Auscultation: normal bowel sounds Skin General skin exam: no rashes or lesions noted Neuro General: patient oriented x3 and no focal motor deficits Extrem General: Yes full ROM Psych Appearance: grossly normal Assessment and Plan Assessment & Plan (1) Physical exam: Code(s): Z00.00 - Encounter for general adult medical examination without abnormal findings Plan: Repeat in a year. (2) Morbid obesity due to excess calories: Code(s): E66.01 - Morbid (severe) obesity due to excess calories Plan: Follow-up with payroll human resources assistant. Consider weight loss surgery Orders: Orders Comprehensive Pierce. Panel Fast Today Z00.00 - Encounter for general adult medical examination without abnormal findings Lipid Panel Today Z00.00 - Encounter for general adult medical examination without abnormal findings Thyroid Stimulating Hormone Today E66.01 - Morbid (severe) obesity due to excess calories Vitamin D 25-OH Total Today E55.9 - Vitamin D deficiency, unspecified Coding Level of Care Code Est Pt Prev Care 18-39y(45045) Diagnoses Physical exam Z00.00 Morbid obesity due to excess calories E66.01 Additional Codes CHRISTO-7 Assessment Billing - CHRISTO-7 Assessment Tool: CHRISTO-7 Assessment 38971 ([id number]) Time Spent (min) 31
== END 2023-02-19 16:26 | disposition home or self-care (01) ==
PROVIDERS: PCP Internal Medicine; Visit Provider Internal Medicine
DX: Z00.00 Encounter for general adult medical examination without abnormal findings (principal); E66.01 Morbid (severe) obesity due to excess calories; Z68.41 Body mass index [BMI] 40.0-44.9, adult
CPT/HCPCS: 99395

== ENCOUNTER 2023-03-19 11:16 | Outpatient (AMB) | payer BC, SELFPAY ==
--- NOTE | 2023-03-19 11:17 | MHC.OFFVIS ---
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 Scribed for SARA Pimentel by Maddie Springer medical assistant per diem, on 03/19/2023 at 11:36 am EST. Dispatcher Bus And Trolley: Dispatcher Bus And Trolley Present (Krystal) Allergies No Known Allergies Allergy (Verified 03/19/23 11:18) Is last menstrual period known: Yes Last menstrual period: 03/12/23 HPI HPI Comments History of Present Illness Details She is a premenopausal woman presenting for annual exam. She admits to eating healthy and tries to stay active with exercise. Currently sexually active with female and male partners. Uses Jessica and is doing well on it; reports occasionally missing doses. Reports taking 3 at time because she forgot to use it for a couple of days (left pack at home when traveling). Denies vaginal itching and irritation. STD screening offered; she accepts. Denies family hx of breast, colon and ovarian cancer. Last pap smear 10/24/21. She denies any contraindications to control such as: migraines with aura, history of DVT or pulmonary emboli, high blood pressure, liver disease, thrombolic disorders, Lupus, +MARILYN, or smoking. [facility] Medical History Migraine with aura CHRISTO (generalized anxiety disorder) Severe major depression Morbid obesity Dizziness Cough Depression CKD (chronic kidney disease) Asthma Surgical History No history of previous surgery Family History Mother Heart attack Father Deaf Family/Other Substance use disorder Mental health disorder Social History Housing: House Housing Other:: living with parents Alcohol intake: current Alcohol intake frequency: holidays/special occasions only Alcohol type: wine and hard liquor Patient Tobacco Use Status: Never used Tobacco e-Cigarette/Vaping Use: Never Used Second Hand Smoke Exposure: No Substance Use Type: Marijuana service: No Current occupational status: employed Current occupational exposures/hazards: No Sexual orientation: Bisexual Gender identity: Female Cognitive needs: No Hearing needs: No Vision needs: No Female Reproductive History Menstrual Duration of menses: 6-7 days Date of last menstrual period: 03/12/23 control method: pills Total pregnancies: 0 Date of last pap smear: 10/24/21 (neg) Physical Exam Vital Signs: Last Vital Signs BP 100/62 03/19/23 11:18 BMI result Body Mass Index 42.4 Const General: cooperative, healthy appearing, no acute distress, well developed and alert Orientation/consciousness: patient oriented x3 HEENT Head: Yes normal to inspection Eyes General: appearance normal, both eyes and all related structures Neck Neck: Yes normal visual inspection Thyroid: Thyroid normal Chest Chest palpation & inspection: normal inspection of the chest Breast/axilla inspection: normal inspection of the breasts (no puckering, dimpling, peau de orange, retraction, discharge, masses) Breast/axilla palpation: normal palpation of the breasts Resp Effort & Inspection: normal respiratory effort GI Other: obese Inspection: Yes normal to inspection Palpation (GI): Soft to palpation (to palpation) Rectal Exam - Female: deferred General: Yes bladder normal to inspection External Female Exam: normal external appearance and normal appearance of the urethra Speculum Exam - Vagina: normal appearance of the vagina, normal palpation and normal vaginal discharge Speculum Exam - Cervix: normal appearance of the cervix and normal palpation Bimanual exam- vagina & uterus: normal palpation and normal palpation Bimanual Exam- Adnexa, other: normal adnexae and no masses Skin General skin exam: no rashes or lesions noted Neuro General: patient oriented x3 Cognition (Neuro): normal cognition Extrem General: Yes normal to inspection Psych Attitude: cooperative Thought process: Normal thought process present Results AMB Test Urine AMB Test Urine Negative Last Edit by PACHECO Cha on 03/19/23 11:56 Results Reviewed Results Reviewed: Laboratory Last Values Tst Clinic Negative 03/19/23 11:55 Assessment & Plan Assessment & Plan (1) Encounter for well woman exam: Code(s): Z01.419 - Encounter for gynecological examination (general) (routine) without abnormal findings Plan: Discussed: Current recommendations for pap smears per ASCCP guidelines. Breast awareness and periodic self breast exams. Maintaining a healthy lifestyle including a well balanced diet and routine exercise. Encouraged to use condoms for STD and prevention. All of her questions and concerns were addressed to the best of my ability. RTO in one year for AG. (2) Contraceptive surveillance: Code(s): Z30.40 - Encounter for surveillance of contraceptives, unspecified Plan: Reviewed use, side effects and warning of OCP, including ACHES. Instructions were given to use a back up method for contraception until the end of pack. Always use condoms for STD prevention. Not to take 3 doses at once, usually: take as soon as possible one dose and the next pill ontime, then use a BUM x 7d. She was instructed to go to ER if she develops loss of vision, severe headache that does not resolve, chest pain, difficulty breathing, abdominal pain, or pain or tenderness in extremity. Call the office with any concerns. (3) Potential exposure to STD: Code(s): Z20.2 - Contact with and (suspected) exposure to infections with a predominantly sexual mode of transmission Plan: BV testing and GC/CT panel done today. STD blood work ordered. Await results and treat accordingly. (4) CKD (chronic kidney disease): Code(s): N18.9 - Chronic kidney disease, unspecified Plan: Encouraged to see renal specialist. Orders: Orders Hepatitis B Core Antibody Today Z20.2 - Contact with and (suspected) exposure to infections with a predominantly sexual mode of transmission HIV Ab/Ag Today Z20.2 - Contact with and (suspected) exposure to infections with a predominantly sexual mode of transmission Syphilis Screen Today Z20.2 - Contact with and (suspected) exposure to infections with a predominantly sexual mode of transmission AMB HCG Urine Test Today Z32.02 - Encounter for test, result negative CT NG by PCR Today Z20.2 - Contact with and (suspected) exposure to infections with a predominantly sexual mode of transmission Hepatitis C Antibody Today Z20.2 - Contact with and (suspected) exposure to infections with a predominantly sexual mode of transmission Medications: Refilled norethindrone (contraceptive) (Jessica) 0.35 mg PO DAILY 84 tabs 4RF Coding Level of Care Code Est Pt Prev Care 18-39y(95727) Diagnoses Encounter for well woman exam Z01.419 Contraceptive surveillance Z30.40 Potential exposure to STD Z20.2 CKD (chronic kidney disease) N18.9
[2023-03-19 11:18] VITALS: BP 100/62; BMI 42.4
== END 2023-03-19 11:55 | disposition home or self-care (01) ==
PROVIDERS: Visit Provider Advanced Practice Midwife
DX: Z01.419 Encounter for gynecological examination (general) (routine) without abnormal findings (principal); Z30.40 Encounter for surveillance of contraceptives, unspecified; Z20.2 Contact with and (suspected) exposure to infections with a predominantly sexual mode of transmission; N18.9 Chronic kidney disease, unspecified; Z32.02 Encounter for pregnancy test, result negative
CPT/HCPCS: 99395

== ENCOUNTER 2023-03-19 11:16 | Outpatient (REF) | payer BC, SELFPAY | END 2023-03-19 11:17 | disposition home or self-care (01) | LOC: HO.LNP 11:16 | PROVIDERS: Visit Provider Advanced Practice Midwife | DX: Z32.02 Encounter for pregnancy test, result negative (principal); Z30.40 Encounter for surveillance of contraceptives, unspecified | CPT/HCPCS: 81025 ==

== ENCOUNTER 2023-03-19 12:07 | Outpatient (REF) | payer BC, SELFPAY ==
[2023-03-19 13:26] LABS: Alanine Aminotransferase 18 U/L (0-31); Albumin Level 4.2 g/dL (3.5-5.0); Alkaline Phosphatase 53 U/L (39-117); Anion Gap 12 (12-20); Aspartate Amino Transferase 16 U/L (5-31); Bilirubin Total 0.5 mg/dL (0.0-1.0); Blood Urea Nitrogen 12 mg/dL (9-16); Calcium 9.3 mg/dL (8.4-10.2); Carbon Dioxide 25 mmol/L (22-29); Chloride 107 mmol/L (96-108); Cholesterol 128 mg/dL (<200); Estimated Glomerular Filt Rate > 60; Glucose Fasting 87 mg/dL (60-99); HDL Cholesterol 35 mg/dL (>40); LDL Cholesterol Calculated 78 mg/dL (<100); Potassium 3.9 mmol/L (3.3-5.1); Sodium 140 mmol/L (135-145); Total Protein 7.2 g/dL (6.5-8.0); Triglycerides 77 mg/dL (<150)
[2023-03-19 13:43] LABS: Thyroid Stimulating Hormone 0.94 uIU/mL (0.32-4.0); Vitamin D 25-OH Total 22.7 ng/mL (>30)
[2023-03-19 13:45] LABS: Syphilis Screen Nonreactive (Nonreactive)
[2023-03-20 04:11] LABS: HBc Num1 0.12 S/CO (0.00-0.79); HIV AB/AG Nonreactive (Nonreactive); HIV Num 1 0.05 S/CO (0.00-0.99); Hepatitis B Core Antibody Nonreactive (Nonreactive); ~HepC Num1 0.09 S/CO (0.00-0.79); ~Hepatitis C Antibody Nonreactive (Nonreactive)
[2023-03-20 05:42] LABS: CT PCR NOT DETECTED (Not Detect.); NG PCR NOT DETECTED (Not Detect.)
== END 2023-03-19 12:08 | disposition home or self-care (01) ==
LOC: HO.LAB 12:07
PROVIDERS: PCP Internal Medicine; Visit Provider Advanced Practice Midwife
DX: Z00.00 Encounter for general adult medical examination without abnormal findings (principal); Z11.4 Encounter for screening for human immunodeficiency virus [HIV]; E55.9 Vitamin D deficiency, unspecified; E66.01 Morbid (severe) obesity due to excess calories; Z20.2 Contact with and (suspected) exposure to infections with a predominantly sexual mode of transmission
CPT/HCPCS: 0353U; 36415; 80053; 80061; 82306; 84443; 86704; 86780; 86803; 87389

== ENCOUNTER → 2023-04-08 15:28 | Outpatient (BNVA) | payer OTHER, SELFPAY | PROVIDERS: PCP Internal Medicine; Visit Provider Physician Assistant Medical | DX: S39.012A Strain of muscle, fascia and tendon of lower back, initial encounter (principal); S16.1XXA Strain of muscle, fascia and tendon at neck level, initial encounter; Y04.8XXA Assault by other bodily force, initial encounter | CPT/HCPCS: 99203 ==

== ENCOUNTER → 2023-04-16 13:51 | Outpatient (BNVA) | payer OTHER, SELFPAY | PROVIDERS: PCP Internal Medicine; Visit Provider Physician Assistant Medical | DX: S39.012A Strain of muscle, fascia and tendon of lower back, initial encounter (principal); Y04.8XXA Assault by other bodily force, initial encounter; M46.1 Sacroiliitis, not elsewhere classified | CPT/HCPCS: 99213 ==

== ENCOUNTER 2023-04-17 14:14 | Outpatient (AMB) | payer BC, SELFPAY ==
[2023-04-17 14:23] VITALS: BMI 42.2
--- NOTE | 2023-04-17 14:23 | A.OFFVIS_ITS ---
Intake VS Expanded 04/17/23 14:23 Height 5 ft 5 in Weight 253 lb 12.033 oz BMI 42.2 Intake Visit Reasons: obesity Allergies No Known Allergies Allergy (Verified 03/19/23 11:18) HPI Nutrition Presentation Details Pt presents for MNT for Obesity. Pt reports resorting to skipping meals during the day, not packing lunch Reports continuing to Work on eating slowly in the evening. Enjoys a variety of foods. Fluids : 16-24 oz/d fruits: 0-1/d non starchy veg : 4 serving/d Pt verbalizes increased appetite in the evening, the majority of the time and late meals. Pt reports needing refills on vitamin D supplements - sent workload to PCP Pt reports having ongoing visits with mental health care provider Physical activity: non additional to daily life activities ETOH---- Most Recent Diabetes Results: Cholesterol 128 mg/dL (<200) 03/19/23 HDL Cholesterol 35 mg/dL (>40) L 03/19/23 Triglycerides 77 mg/dL (<150) 03/19/23 Creatinine 0.67 mg/dL (0.5-1.4) 04/17/23 Blood Urea Nitrogen 13 mg/dL (9-16) 04/17/23 Sodium 137 mmol/L (135-145) 04/17/23 Potassium 3.9 mmol/L (3.3-5.1) 04/17/23 Chloride 102 mmol/L (96-108) 04/17/23 Carbon Dioxide 23 mmol/L (22-29) 04/17/23 Calcium 9.5 mg/dL (8.4-10.2) 04/17/23 AST 16 U/L (5-31) 03/19/23 ALT 18 U/L (0-31) 03/19/23 Total Protein 7.2 g/dL (6.5-8.0) 03/19/23 Albumin 4.2 g/dL (3.5-5.0) 03/19/23 [facility] Medical History Migraine with aura CHRISTO (generalized anxiety disorder) Severe major depression Morbid obesity Dizziness Cough Depression CKD (chronic kidney disease) Asthma Surgical History No history of previous surgery Family History Mother Heart attack Father Deaf Family/Other Substance use disorder Mental health disorder Social History Housing: House Housing Other:: living with parents Alcohol intake: current Alcohol intake frequency: holidays/special occasions only Alcohol type: wine and hard liquor Patient Tobacco Use Status: Never used Tobacco e-Cigarette/Vaping Use: Never Used Second Hand Smoke Exposure: No Substance Use Type: Marijuana service: No Current occupational status: employed Current occupational exposures/hazards: No Sexual orientation: Bisexual Gender identity: Female Cognitive needs: No Hearing needs: No Vision needs: No Assessment & Plan Assessment & Plan (1) Morbid obesity due to excess calories: Code(s): E66.01 - Morbid (severe) obesity due to excess calories Plan: Educate Pt on 2300 hakeem meal plan ? Used wt : 120 kg (03/2022), 116 kg (01/2023), 115 kg (04/2023) Est kcal as per MSJ: 2350 (40% carb, 30% fat/prot) Est fluid needs: 9340-0698 ml/d (25-35 ml/kg bw) Rec fiber: increase to 8-10 g per day and gradually increase to 25 g/d or as tolerated Rec Na: < 2000 mg /d Educate patient on: (R= Reviewed, V = verbalizes understanding N/R= Needs review N/A= not applicable) * Food sources of carbohydrates and serving adequate serving sizes : R * Difference between complex carbohydrates and simple carbohydrates, role of fiber: R * Differences between fats (MUFA/PUFA/saturated fats, trans fats) and food sources of various fats: R low fat basic * Food sources of sodium and salt and healthy modifications for heart health and kidney health: R * Vitamins and minerals: R, discussed Vit D sources of foods, b vit, iron * How to interpret food labels: R * Healthy Plate method concept: R * Physical activity: benefits and precaution: R Patient Instructions: Work on not skipping lunch, carry a fruit and yogurt, or peanut butter sandwich on whole wheat bread, see list of other quick meal options Include vitamin D rich foods in your diet (liver, yogurt, mushroom, milk, kasandra mon) Engage in physical activity, goal 30 minutes daily (dancing, marching in place, walking, stairs, something you enjoy) Coding Level of Care Code Nutr Indiv Subseq (57458) Diagnoses Morbid obesity due to excess calories E66.01 Time Spent (min) 30
== END 2023-04-17 15:09 | disposition home or self-care (01) ==
PROVIDERS: PCP Internal Medicine; Visit Provider Dietitian, Registered
DX: E66.01 Morbid (severe) obesity due to excess calories (principal)

== ENCOUNTER 2023-04-17 14:14 | Outpatient (REF) | payer BC, SELFPAY ==
[2023-04-17 15:44] LABS: MANUAL DIFF FLAG NO
[2023-04-17 16:58] LABS: Basophils Percent Auto 0.3 % (0-2); Eosinophils Percent Auto 0.3 % (0-4); Hematocrit 44.7 % (37.0-47.0); Hemoglobin 14.4 g/dl (12.0-16.0); Imm Gran Abs Auto 0.04 X10*3/uL (0.00-0.03); Imm Gran Pct Auto 0.3 % (0.0-0.4); Lymphocytes Absolute Auto 2.8 X10*3/uL (1.2-4.9); Lymphocytes Percent Auto 23.9 % (20-40); Mean Corpuscular HGB Conc 32.2 g/dl (31.0-35.0); Mean Corpuscular Hemoglobin 29.9 pg (27.0-33.0); Mean Corpuscular Volume 92.9 fL (80.0-98.0); Mean Platelet Volume 10.9 fL (9.4-12.3); Monocytes Absolute Auto 0.8 X10*3/uL (0.1-1.2); Monocytes Percent Auto 6.4 % (2-11); Neutrophils Percent Auto 68.8 % (45-73); Platelet Count 290 X10*3/uL (160-400); Red Blood Count 4.81 X10*6/uL (4.20-5.50); Red Cell Distribution Width 13.1 % (11.0-16.0); White Blood Count 11.7 X10*3/uL (4.8-10.8)
[2023-04-17 17:02] LABS: Appearance Urine Clear; Color Urine Yellow; Glucose Urine UA Negative (Negative); Leukocyte Esterase Urine Negative (Negative); Nitrite Urine Negative (Negative); Specific Gravity - Urine >= 1.030 (1.005-1.025); UMIC TRIGGER UA YES; Urine Blood Small (1+) (Negative); Urine Ketones 40 mg/dL (Negative); Urine Protein Negative (Neg-Trace)
[2023-04-17 17:07] LABS: Bacteria Urine 1+ (None Seen); Hyaline Casts Urine 0-2 /LPF (0-2); WBC Urine 0-5 /HPF (0-5)
[2023-04-17 17:36] LABS: Creatinine Urine 209.85 mg/dL; Protein/Creatinine Ratio, Ur 0.07 (<0.2); Total Protein Urine Random 14 mg/dL (<12)
[2023-04-17 17:45] LABS: Anion Gap 16 (12-20); Blood Urea Nitrogen 13 mg/dL (9-16); Calcium 9.5 mg/dL (8.4-10.2); Carbon Dioxide 23 mmol/L (22-29); Chloride 102 mmol/L (96-108); Estimated Glomerular Filt Rate > 60; Potassium 3.9 mmol/L (3.3-5.1); Sodium 137 mmol/L (135-145)
[2023-04-17 17:54] LABS: Vitamin D 25-OH Total 20.7 ng/mL (>30)
== END 2023-04-17 14:15 | disposition home or self-care (01) ==
LOC: HO.LAB 14:14
PROVIDERS: Absent Provider Physician Assistant; PCP Internal Medicine; Visit Provider Dietitian, Registered
DX: R31.9 Hematuria, unspecified (principal); E55.9 Vitamin D deficiency, unspecified; E66.01 Morbid (severe) obesity due to excess calories; Z68.41 Body mass index [BMI] 40.0-44.9, adult; Z71.3 Dietary counseling and surveillance
CPT/HCPCS: 36415; 80051; 81001; 81003; 82306; 82310; 82565; 82570; 84156; 84520; 85025; 97803

== ENCOUNTER → 2023-04-30 15:04 | Outpatient (BNVA) | payer OTHER, SELFPAY | PROVIDERS: PCP Internal Medicine; Visit Provider Physician Assistant Medical | DX: S39.012A Strain of muscle, fascia and tendon of lower back, initial encounter (principal); Y04.2XXA Assault by strike against or bumped into by another person, initial encounter; M46.1 Sacroiliitis, not elsewhere classified | CPT/HCPCS: 99213 ==

== ENCOUNTER → 2023-05-15 15:09 | Outpatient (BNVA) | payer OTHER, SELFPAY | PROVIDERS: PCP Internal Medicine; Visit Provider Physician Assistant Medical | DX: S39.012D Strain of muscle, fascia and tendon of lower back, subsequent encounter (principal); S16.1XXD Strain of muscle, fascia and tendon at neck level, subsequent encounter; X50.1XXD Overexertion from prolonged static or awkward postures, subsequent encounter | CPT/HCPCS: 99213 ==

== ENCOUNTER 2023-05-27 15:00 | Outpatient (RCR) | payer OTHER, BC, SELFPAY ==
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
--- NOTE | 2023-05-27 16:03 | MHC.PT.DC ---
[facility] [place] Office [place] Office [place] Office [address] [phone] F: [phone] F: [phone] F: [phone] F: [phone] Physical Therapy Discharge Report Diagnosis: R lumbar strain/ sacroilitis (they/them) Date of Surgery: NA Date of Evaluation: 04/24/23 Date of Discharge: 05/27/23 Treatments to Date: 8 Cancellations to Date: 1 No Shows to Date: Discharge Status: Discharge Summary: Alison has completed 8 PT visits. They arrived stating they are feeling better. They have achieved all goals set for them and are independent with all HEP. They are therefore being d/c from PT. Alison was in agreement with the plan. Electronically signed by: Carmen Lenz PT DPT Please sign and return to therapist. Thank you for your referral.
== END 2023-05-27 16:03 | disposition home or self-care (01) ==
LOC: HO.PT 15:00
PROVIDERS: PCP Internal Medicine; Visit Provider Physician Assistant Medical
DX: S39.012D Strain of muscle, fascia and tendon of lower back, subsequent encounter (principal); M46.1 Sacroiliitis, not elsewhere classified
CPT/HCPCS: 97110; 97112; 97161; 97530

== ENCOUNTER → 2023-05-29 15:21 | Outpatient (BNVA) | payer OTHER, SELFPAY | PROVIDERS: PCP Internal Medicine; Visit Provider Physician Assistant Medical | DX: S39.012D Strain of muscle, fascia and tendon of lower back, subsequent encounter (principal); Y04.8XXD Assault by other bodily force, subsequent encounter; M46.1 Sacroiliitis, not elsewhere classified | CPT/HCPCS: 99213 ==

== ENCOUNTER 2023-07-17 14:17 | Outpatient (AMB) | payer BC, SELFPAY ==
[2023-07-17 14:28] VITALS: BMI 43.2
--- NOTE | 2023-07-17 14:28 | A.OFFVIS_ITS ---
Intake VS Expanded 07/17/23 14:28 Height 5 ft 5 in Weight 259 lb 7.745 oz BMI 43.2 Intake Visit Reasons: obesity/LVM Allergies No Known Allergies Allergy (Verified 03/19/23 11:18) HPI Nutrition Presentation Details Pt presents for MNT f/u for morbid obesity. Pt has CKD. Pt reports dietary indiscretion. Reports intentions to resume working on meal planning. Most Recent Diabetes Results: Cholesterol 128 mg/dL (<200) 03/19/23 HDL Cholesterol 35 mg/dL (>40) L 03/19/23 Triglycerides 77 mg/dL (<150) 03/19/23 Creatinine 0.67 mg/dL (0.5-1.4) 04/17/23 Blood Urea Nitrogen 13 mg/dL (9-16) 04/17/23 Sodium 137 mmol/L (135-145) 04/17/23 Potassium 3.9 mmol/L (3.3-5.1) 04/17/23 Chloride 102 mmol/L (96-108) 04/17/23 Carbon Dioxide 23 mmol/L (22-29) 04/17/23 Calcium 9.5 mg/dL (8.4-10.2) 04/17/23 AST 16 U/L (5-31) 03/19/23 ALT 18 U/L (0-31) 03/19/23 Total Protein 7.2 g/dL (6.5-8.0) 03/19/23 Albumin 4.2 g/dL (3.5-5.0) 03/19/23 [facility] Medical History Migraine with aura CHRISTO (generalized anxiety disorder) Severe major depression Morbid obesity Dizziness Cough Depression CKD (chronic kidney disease) Asthma Surgical History No history of previous surgery Family History Mother Heart attack Father Deaf Family/Other Substance use disorder Mental health disorder Social History Housing: House Housing Other:: living with parents Alcohol intake: current Alcohol intake frequency: holidays/special occasions only Alcohol type: wine and hard liquor Patient Tobacco Use Status: Never used Tobacco e-Cigarette/Vaping Use: Never Used Second Hand Smoke Exposure: No Substance Use Type: Marijuana service: No Current occupational status: employed Current occupational exposures/hazards: No Sexual orientation: Bisexual Gender identity: Female Cognitive needs: No Hearing needs: No Vision needs: No Assessment & Plan Assessment & Plan (1) Morbid obesity due to excess calories: Code(s): E66.01 - Morbid (severe) obesity due to excess calories Plan: Educate Pt on [address] meal plan ? Used wt : 120 kg (03/2022), 116 kg (01/2023), 115 kg (04/2023), 118 kg () Est kcal as per MSJ: 2350 (40% carb, 30% fat/prot) Est fluid needs: 6020-7494 ml/d (25-35 ml/kg bw) Rec fiber: increase to 8-10 g per day and gradually increase to 25 g/d or as tolerated Rec Na: < 2000 mg /d Educate patient on: (R= Reviewed, V = verbalizes understanding N/R= Needs review N/A= not applicable) * Food sources of carbohydrates and serving adequate serving sizes : R * Difference between complex carbohydrates and simple carbohydrates, role of fiber: R * Differences between fats (MUFA/PUFA/saturated fats, trans fats) and food sources of various fats: R low fat basic * Food sources of sodium and salt and healthy modifications for heart health and kidney health: R * Vitamins and minerals: R, discussed Vit D sources of foods, b vit, iron * How to interpret food labels: R * Healthy Plate method concept: R * Physical activity: benefits and precaution: R * Mindful eating, lowering high calorie foods Patient Instructions: Resume taking vitamin D supplement Work on including more water, low sugar beverages, aim at 13 cups/day Reduce on fats added to the meals and reduce on portion at dinner keep a food record Coding Level of Care Code Nutr Indiv Subseq (72348) Diagnoses Morbid obesity due to excess calories E66.01 Time Spent (min) 30
== END 2023-07-17 15:09 | disposition home or self-care (01) ==
PROVIDERS: PCP Internal Medicine; Visit Provider Dietitian, Registered
DX: E66.01 Morbid (severe) obesity due to excess calories (principal)

== ENCOUNTER → 2023-07-17 14:17 | Outpatient (BNVA) | payer BC, SELFPAY | PROVIDERS: PCP Internal Medicine; Visit Provider Dietitian, Registered | DX: E66.01 Morbid (severe) obesity due to excess calories (principal); Z68.41 Body mass index [BMI] 40.0-44.9, adult; Z71.3 Dietary counseling and surveillance | CPT/HCPCS: 97803 ==

== ENCOUNTER → 2023-08-14 12:04 | Outpatient (BNVA) | payer OTHER, SELFPAY | PROVIDERS: PCP Internal Medicine; Visit Provider Physician Assistant Medical | DX: S09.90XA Unspecified injury of head, initial encounter (principal); W50.0XXA Accidental hit or strike by another person, initial encounter | CPT/HCPCS: 99203 ==

== ENCOUNTER → 2023-08-19 11:08 | Outpatient (BNVA) | payer OTHER, SELFPAY | PROVIDERS: PCP Internal Medicine; Visit Provider Physician Assistant Medical | DX: S63.602A Unspecified sprain of left thumb, initial encounter (principal); S63.502A Unspecified sprain of left wrist, initial encounter; X58.XXXA Exposure to other specified factors, initial encounter | CPT/HCPCS: 29125; 73110; 73130; 99203 ==

== ENCOUNTER → 2023-08-29 14:22 | Outpatient (BNVA) | payer OTHER, SELFPAY | PROVIDERS: PCP Internal Medicine; Visit Provider Physician Assistant Medical | DX: S63.602A Unspecified sprain of left thumb, initial encounter (principal); S63.502A Unspecified sprain of left wrist, initial encounter; Y04.2XXA Assault by strike against or bumped into by another person, initial encounter | CPT/HCPCS: 99213 ==

== ENCOUNTER 2023-09-13 15:30 | Outpatient (RCR) | payer OTHER, BC, SELFPAY | END 2023-09-13 16:39 | disposition home or self-care (01) | LOC: HO.OT 15:30 | PROVIDERS: PCP Internal Medicine; Visit Provider Physician Assistant Medical | DX: S63.502D Unspecified sprain of left wrist, subsequent encounter (principal); S63.602D Unspecified sprain of left thumb, subsequent encounter | CPT/HCPCS: 97110; 97165; 97530; 97760 ==

== ENCOUNTER → 2023-09-18 13:59 | Outpatient (BNVA) | payer OTHER, SELFPAY | PROVIDERS: PCP Internal Medicine; Visit Provider Physician Assistant Medical | DX: S66.212D Strain of extensor muscle, fascia and tendon of left thumb at wrist and hand level, subsequent encounter (principal); X50.1XXD Overexertion from prolonged static or awkward postures, subsequent encounter | CPT/HCPCS: 97803; 99213 ==

== ENCOUNTER 2023-09-18 14:30 | Outpatient (AMB) | payer BC, SELFPAY ==
[2023-09-18 14:39] VITALS: BMI 42.3
--- NOTE | 2023-09-18 14:39 | A.OFFVIS_ITS ---
Intake VS Expanded 09/18/23 14:39 Height 5 ft 5 in Weight 253 lb 15.56 oz BMI 42.3 Intake Visit Reasons: Obesity/LVM Allergies No Known Allergies Allergy (Verified 03/19/23 11:18) HPI Nutrition Presentation Details Pt presents for MNT for obesity. Pt reports doing ok. Reports appetite fluctuate related to stress. Pt reports following up with therapist. Physical activity: at work the majority of the time, planning to increase walks in warmer weather food frequency fruits: 0/d ve-3 serving/d- c/o dairy: 2/d protein: variety : poultry/beef/eggs/ fish 0-2x/m starches > 20 servings c/o fruits/veg damaging quickly Most Recent Diabetes Results: Creatinine 0.67 mg/dL (0.5-1.4) 04/17/23 Blood Urea Nitrogen 13 mg/dL (9-16) 04/17/23 Sodium 137 mmol/L (135-145) 04/17/23 Potassium 3.9 mmol/L (3.3-5.1) 04/17/23 Chloride 102 mmol/L (96-108) 04/17/23 Carbon Dioxide 23 mmol/L (22-29) 04/17/23 Calcium 9.5 mg/dL (8.4-10.2) 04/17/23 [facility] Medical History Migraine with aura CHRISTO (generalized anxiety disorder) Severe major depression Morbid obesity Dizziness Cough Depression CKD (chronic kidney disease) Asthma Surgical History No history of previous surgery Family History Mother Heart attack Father Deaf Family/Other Substance use disorder Mental health disorder Social History Housing: House Housing Other:: living with parents Alcohol intake: current Alcohol intake frequency: holidays/special occasions only Alcohol type: wine and hard liquor Patient Tobacco Use Status: Never used Tobacco e-Cigarette/Vaping Use: Never Used Second Hand Smoke Exposure: No Substance Use Type: Marijuana service: No Current occupational status: employed Current occupational exposures/hazards: No Sexual orientation: Bisexual Gender identity: Female Cognitive needs: No Hearing needs: No Vision needs: No Assessment & Plan Assessment & Plan (1) Morbid obesity due to excess calories: Code(s): E66.01 - Morbid (severe) obesity due to excess calories Plan: Educate Pt on [address] meal plan ? Used wt : 120 kg (03/2022), 116 kg (01/2023), 115 kg (04/2023), 118 kg (), 115 kg (09/2023) Est kcal as per MSJ: 2350 (40% carb, 30% fat/prot) Est fluid needs: 5287-1025 ml/d (25-35 ml/kg bw) Rec fiber: increase to 8-10 g per day and gradually increase to 25 g/d or as tolerated Rec Na: < 2000 mg /d Educate patient on: (R= Reviewed, V = verbalizes understanding N/R= Needs review N/A= not applicable) * Food sources of carbohydrates and serving adequate serving sizes : R * Difference between complex carbohydrates and simple carbohydrates, role of fiber: R * Differences between fats (MUFA/PUFA/saturated fats, trans fats) and food sources of various fats: R, V * Food sources of sodium and salt and healthy modifications for heart health and kidney health: R * Vitamins and minerals: R, discussed Vit D sources of foods, b vit, iron * How to interpret food labels: R, V * Healthy Plate method concept: R * Physical activity: benefits and precaution: R * Mindful eating, lowering high calorie foods R, V * including fruit in diet , R Patient Instructions: Reduce amount of starch at dinner by 1/2 cup serving less and include a fruit as part of your plate Engage in walks daily as part of relaxation routine include at least 2 servings of calcium in your diet (kale, spinach, bokchoy, canned sardines/salmon, soybeans, calcium/vitamin d fortified milk and alternatives) Coding Level of Care Code Nutr Indiv Subseq (14431) Diagnoses Morbid obesity due to excess calories E66.01 Time Spent (min) 30
== END 2023-09-18 15:06 | disposition home or self-care (01) ==
PROVIDERS: PCP Internal Medicine; Visit Provider Dietitian, Registered
DX: E66.01 Morbid (severe) obesity due to excess calories (principal)

== ENCOUNTER 2023-10-02 08:15 | Outpatient (AMB) | payer OTHER, BC, SELFPAY ==
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
== END 2023-10-02 09:14 | disposition home or self-care (01) ==
PROVIDERS: PCP Internal Medicine; Visit Provider Orthopaedic Surgery
DX: S63.502A Unspecified sprain of left wrist, initial encounter (principal)
CPT/HCPCS: 99204

== ENCOUNTER → 2023-10-02 08:15 | Outpatient (BNVA) | payer OTHER, BC, SELFPAY | PROVIDERS: PCP Internal Medicine; Visit Provider Orthopaedic Surgery | DX: S63.502A Unspecified sprain of left wrist, initial encounter (principal) | CPT/HCPCS: 99202 ==

== ENCOUNTER 2023-10-09 05:48 | Emergency (ER) | payer BC, SELFPAY ==
[2023-10-09 06:01] VITALS: BP 117/78; PULSE 86; RESP 18; TEMP 36.8; O2SAT 96; BMI 42.4
[2023-10-09 07:00] LABS: Influenza A PCR NEGATIVE (Negative); Influenza B PCR NEGATIVE (Negative); Resp Syncy Virus RNA Qual PCR NEGATIVE (Negative); SARS COV2 PCR INHOUSE NEGATIVE (Negative)
--- NOTE | 2023-10-09 07:58 | ED_ITS ---
HPI - General Adult General Chief complaint: General Medical Stated complaint: possible stomach bug Time Seen by Provider: 10/09/23 07:57 Source: patient Mode of arrival: ambulatory Limitations: no limitations History of Present Illness HPI narrative: Patient is a 23 year old assigned female at with a history of CKD and asthma presenting to the emergency department today with nausea, vomiting, cough, diarrhea, and a sore throat. Patient states that over the last few days she has had a cough, nausea, vomiting, diarrhea, and a sore throat. Patient states that she is around other sick contacts. Patient denies any dizziness, lightheadedness, abdominal pain, fever, chills, blurry vision, double vision, loss of vision, chest pain, difficulty breathing, shortness of breath, back pain, night sweats, pain with urination, increased urinary frequency, increased urinary urgency, blood in her urine or stool, syncope or a near syncopal episode, recent trauma or falls, bowel incontinence, bladder incontinence, bowel retention, bladder retention, or any other complaints at this time. Onset (ago): day(s) Severity: mild Relieving factors: none Exacerbating factors: none Associated symptoms: cough and nausea/vomiting Treatments prior to arrival: none Related Data Previous Rx's Medication Instructions Recorded norethindrone (contraceptive) 0.35 0.35 mg PO DAILY #84 tabs 03/19/23 mg tablet (Jessica) cholecalciferol (vitamin D3) 50 50 mcg PO DAILY 90 days #90 caps 09/18/23 mcg (2,000 unit) capsule ondansetron 4 mg disintegrating 4 mg PO Q8H 3 days #9 tabs 10/09/23 tablet Allergies Allergy/AdvReac Type Severity Reaction Status Date / Time No Known Allergies Allergy Verified 10/09/23 06:06 Review of Systems Constitutional: Constitutional: Reports no additional constitutional complaints, Denies chills, Denies fever(s) and Denies night sweats Eyes: Eyes: Reports no additional eye complaints, Denies blurry vision, Denies change in vision, Denies diplopia, Denies eye discharge, Denies loss of vision and Denies eye pain ENT: Denies dizziness and Reports sore throat Cardiovascular: Cardiovascular: Reports no additional cardiovascular complaints, Denies chest pain, Denies lightheadedness, Denies Loss of Consciousness and Denies dyspnea Respiratory: Respiratory: Reports no additional respiratory complaints, Reports cough and Denies dyspnea Gastrointestinal: Gastrointestinal: Reports no additional gastrointestinal complaints, Denies abdominal pain, Denies melena, Denies hematochezia, Denies change in bowel habits, Denies change in stool character, Reports diarrhea, Reports nausea and Reports vomiting Genitourinary: Genitourinary: Denies hematuria, Denies urinary frequency, Denies dysuria, Denies urinary incontinence, Denies urinary hesitancy and Denies urinary urgency Musculoskeletal: Musculoskeletal: Reports no additional musculoskeletal complaints, Denies numbness and Denies tingling Neurologic: Denies dizziness, Denies loss of vision, Denies numbness and Denies tingling Psychiatric: Psychiatric: Reports no additional psychiatric complaints Endocrine: Endocrine: Reports no additional endocrine complaints Hematologic/Lymphatic: Hematologic/Lymphatic: Reports no additional hematologic/lymphatic complaints Allergic/Immunologic: Allergic/Immunologic: Reports no additional allergic/immunologic complaints PMFSH Past Medical History Attestation statement: The following information was validated with the patient. Source: old records reviewed and nursing notes reviewed Medical History Left wrist sprain Physical exam Hair loss Encounter to discuss test results Pelvic cramping Encounter for annual routine gynecological examination Local reaction to COVID-19 vaccine Fatigue Morbid obesity Rash Dizziness Cough Migraine with aura CHRISTO (generalized anxiety disorder) Severe major depression Depression CKD (chronic kidney disease) Asthma Surgical History No history of previous surgery Family History Family History Mother Heart attack Father Deaf Family/Other Substance use disorder Mental health disorder Social History Social History Housing: House Housing Other:: living with parents Alcohol intake: current Alcohol intake frequency: holidays/special occasions only Alcohol type: wine and hard liquor Patient Tobacco Use Status: Never used Tobacco e-Cigarette/Vaping Use: Never Used Second Hand Smoke Exposure: No Substance Use Type: Marijuana Advance Directives: No Advance Directives Information Provided: No service: No Current occupational status: employed Current occupational exposures/hazards: No Sexual orientation: Bisexual Gender identity: Female Cognitive needs: No Hearing needs: No Vision needs: No Physical Exam ED Vital Signs: Vital Signs - 24 hr 10/09/23 06:01 10/09/23 08:39 Temperature 98.3 F 98.3 F Pulse Rate 86 86 Respiratory Rate 18 18 Blood Pressure 117/78 117/78 Pulse Oximetry 96 96 Oxygen Delivery Method Room Air Room Air BMI result Body Mass Index 42.4 Const General: cooperative, no acute distress, alert and awake Nutritional Appearance: well nourished Orientation/consciousness: patient oriented x3 Limitations: no limitations HENMT Head: Yes normal to inspection and Yes atraumatic Ears: hearing grossly normal bilaterally and external ears normal General nose exam: Normal external nose present, no nasal discharge noted and no epistaxis Face and sinus: Yes normal facial exam, No abrasion and No laceration Mouth: Normal oral and palatal mucosa present, no drooling and no muffled voice Eyes General: appearance normal, both eyes and all related structures Periorbital: periorbital findings normal Eyelids: Yes eyelids normal Conjunctivae: conjunctivae normal Pupils: Equal, round and reactive pupils present EOM: EOMs intact bilaterally Neck Neck: Yes normal visual inspection, Yes full ROM and Yes no lymphadenopathy Chest Chest palpation & inspection: normal inspection of the chest Resp Effort & Inspection: normal respiratory effort and able to speak in complete sentences GI Inspection: Yes normal to inspection Neuro General: patient oriented x3 and moves all extremities Cranial nerves: Yes Equal, round and reactive pupils present Cognition (Neuro): normal cognition Motor exam (neuro): 5/5 motor strength present throughout Sensory Exam: Normal double simultaneous stimulation for sensation Coordination: [id number] test normal Extrem General: Yes normal to inspection, Yes full ROM and Yes capillary refill normal Psych Appearance: grossly normal Mental Status: mental status grossly normal Affect: normal affect Attitude: cooperative Thought process: Normal thought process present Thought content: Normal thought content present Insight: Good insight present (Psych) Medical Decision Making Medical Decision Making MDM Narrative: Patient is a 23 year old assigned female at with a history of CKD and asthma presenting to the emergency department today with nausea, vomiting, diarrhea, sore throat, and a cough. Patient's physical exam was unremarkable. Patient's COVID-19, influenza, and RSV tests were negative. I explained my physical exam findings as well as all test results to the patient. I answered all questions asked by the patient. I stressed the importance of the patient taking her medication as prescribed. I stressed the importance of the patient following up with her primary care provider. I stressed the importance of the patient returning to the emergency department immediately if her symptoms were to worsen or if she were to develop any dizziness, shortness of breath, difficulty breathing, chest pain, blurry vision, loss of vision, nausea, vomiting, abdominal pain, fever, chills, back pain, or any other complaints. Patient verbalized agreement and understanding with this treatment plan and discharge. Differential Diagnosis Differential Diagnoses: The differential diagnosis associated with the presentation includes Gastroenteritis COVID-19 Influenza RSV URI Admission/Observation Consideration of admission/observation: Escalation of care including admission/observation considered Patient would have been admitted to the hospital had her work up had any findings where hospital admission was appropriate and her clinical presentation warranted hospital admission. Lab Data [facility] Lab Attestation statement: I reviewed the patient's lab results. My interpretation of these results are in the [facility] Rationale portion of this note. Labs: Lab Results 10/09/23 Range/Units 06:16 Influenza Type A (PCR) NEGATIVE (Negative) Influenza Type B (PCR) NEGATIVE (Negative) RSV RNA Qual (PCR) NEGATIVE (Negative) SARS-CoV-2 RNA (RT-PCR) NEGATIVE (Negative) Prescription Management I considered prescription management with: Other (patient prescribed an anti- emetic) Discharge Plan Discharge Clinical Impression: Gastroenteritis Patient Disposition: Home, Self-Care Instructions: Gastroenteritis (DC) Additional Instructions: Follow up with your primary care provider. Return to the emergency department immediately if your symptoms worsen or if you develop any dizziness, shortness of breath, difficulty breathing, chest pain, blurry vision, loss of vision, nausea, vomiting, abdominal pain, fever, chills, back pain, or any other complaints. Prescriptions: New ondansetron 4 mg tablet,disintegrating 4 mg PO Q8H 3 Days Qty: 9 0RF No Action cholecalciferol (vitamin D3) 50 mcg (2,000 unit) capsule 50 mcg PO DAILY 90 Days Qty: 90 0RF norethindrone (contraceptive) [Jessica] 0.35 mg tablet 0.35 mg PO DAILY Qty: 84 4RF Referrals: [facility] [place] Family Medicine [Provider Group] (Call to establish and follow up with a primary care provider. If you already have a primary care provider, please follow up with them.) [facility] [place] [facility] [Provider Group] (Call to establish and follow up with a primary care provider. If you already have a primary care provider, please follow up with them.) [facility] [Provider Group] (Call to establish and follow up with a primary care provider. If you already have a primary care provider, please follow up with them.) Stand Alone Forms: Work/School Release Interventions: ED Discharge Assessment Last Done: 10/09/23 08:39 Discharge Date/Time: 10/09/23 08:39 Print Language: Swedish
[2023-10-09 08:39] VITALS: BP 117/78; PULSE 86; RESP 18; TEMP 36.8; O2SAT 96
== END 2023-10-09 08:39 | disposition home or self-care (01) ==
PROVIDERS: Emergency Provider Emergency Medicine; PCP Internal Medicine
DX: K52.9 Noninfective gastroenteritis and colitis, unspecified (principal); N18.9 Chronic kidney disease, unspecified; Z03.818 Encounter for observation for suspected exposure to other biological agents ruled out
CPT/HCPCS: 0241U; 99282; 99283

== ENCOUNTER 2023-12-18 14:17 | Outpatient (AMB) | payer OTHER, SELFPAY ==
[2023-12-18 14:32] VITALS: BMI 41.4
--- NOTE | 2023-12-18 14:32 | A.OFFVIS_ITS ---
VS Expanded 12/18/23 14:32 Height 5 ft 5 in Weight 248 lb 10.903 oz BMI 41.4 Intake Visit Reasons: obesity Allergies No Known Allergies Allergy (Verified 10/09/23 06:06) Nutrition Presentation Details: Pt presents for MNT f/u for morbid obesity. Pt reports working on not skipping meals BS Monitoring Most Recent Diabetes Results: No Data to Display PFSH Medical History Left wrist sprain Physical exam Hair loss Encounter to discuss test results Pelvic cramping Encounter for annual routine gynecological examination Local reaction to COVID-19 vaccine Fatigue Morbid obesity Rash Dizziness Cough Migraine with aura CHRISTO (generalized anxiety disorder) Severe major depression Depression CKD (chronic kidney disease) Asthma Surgical History No history of previous surgery Family History Mother Heart attack Father Deaf Family/Other Substance use disorder Mental health disorder Social History Housing: House Housing Other:: living with parents Alcohol intake: current Alcohol intake frequency: holidays/special occasions only Alcohol type: wine and hard liquor Patient Tobacco Use Status: Never used Tobacco e-Cigarette/Vaping Use: Never Used Second Hand Smoke Exposure: No Substance Use Type: Marijuana service: No Current occupational status: employed Current occupational exposures/hazards: No Sexual orientation: Bisexual Gender identity: Female Cognitive needs: No Hearing needs: No Vision needs: No Assessment & Plan Assessment & Plan (1) Morbid obesity due to excess calories: Code(s): E66.01 - Morbid (severe) obesity due to excess calories Category: Medical Plan: Educate Pt on 2300 [address] meal plan ? Used wt : 120 kg (03/2022), 116 kg (01/2023), 115 kg (04/2023), 118 kg (), 115 kg (09/2023), 113 kg ( 12/2023) Est kcal as per MSJ: 2350 (40% carb, 30% fat/prot) Est fluid needs: 7530-2244 ml/d (25-35 ml/kg bw) Rec fiber: increase to 8-10 g per day and gradually increase to 25 g/d or as tolerated Rec Na: < 2000 mg /d Educate patient on: (R= Reviewed, V = verbalizes understanding N/R= Needs review N/A= not applicable) * Food sources of carbohydrates and serving adequate serving sizes : R * Difference between complex carbohydrates and simple carbohydrates, role of fiber: R * Differences between fats (MUFA/PUFA/saturated fats, trans fats) and food sources of various fats: R, V * Food sources of sodium and salt and healthy modifications for heart health and kidney health: R * Vitamins and minerals: R, discussed Vit D sources of foods, b vit, iron * How to interpret food labels: R, V * Healthy Plate method concept: R * Physical activity: benefits and precaution: R * Mindful eating, lowering high calorie foods R, V * including fruit in diet , R Patient Instructions: Continue working on havign 3 balanced meals per day continue working on reducing on sugars Try cheese alternatives (low sodium and low fat ) Coding Level of Care Code Nutr Indiv Subseq (76175) Diagnoses Morbid obesity due to excess calories E66.01 Time Spent (min) 20
== END 2023-12-18 15:00 | disposition home or self-care (01) ==
PROVIDERS: PCP Internal Medicine; Visit Provider Dietitian, Registered
DX: E66.01 Morbid (severe) obesity due to excess calories (principal)

== ENCOUNTER → 2023-12-18 14:17 | Outpatient (BNVA) | payer OTHER, SELFPAY | PROVIDERS: PCP Internal Medicine; Visit Provider Dietitian, Registered | DX: E66.01 Morbid (severe) obesity due to excess calories (principal); Z68.41 Body mass index [BMI] 40.0-44.9, adult; Z71.3 Dietary counseling and surveillance | CPT/HCPCS: 97803 ==

== ENCOUNTER 2024-02-24 15:56 | Outpatient (AMB) | payer BC, SELFPAY ==
--- NOTE | 2024-02-24 16:00 | A.OFFPC_ITS ---
Vital Signs 02/24/24 16:02 Height 5 ft 5 in Weight 254 lb BMI 42.3 BP 118/82 Blood Pressure Location Lt brachial Position Sitting Intake Visit Reasons: Annual exam Intake Note: Patient here for a physical exam Health Sanitarian Required: No Accompanied by: Self / Same As Patient Allergies No Known Allergies Allergy (Verified 02/24/24 16:17) Medication List - Last Reconciled 02/24/24 by Cherie Beauchamp MD norethindrone (contraceptive) (Jessica) 0.35 mg PO DAILY Tobacco use date assessed: 02/24/24 Dental Screening Dental Screen Date: 02/24/24 Did you have a dental visit in the last 12 months?: No Did you have a dental problem in the last 6 months where you did not have access to dental care?: No Was dental information given to patient?: Patient has dentist HPI HPI Comments History of Present Illness Details This is a 23-year-old female with mild major depression and morbid obesity that comes for her physical exam. Depression has improved with counseling. She is morbidly obese with a BMI of 42.3 and will see laborer cheesemaking next month. Pap smear done 2021 was normal. Complain of abnormal menses and I told her to contact OBGYN. Also complains of a lump in the upper back and I will test her for cortisol levels to rule out Deejay's. [facility] Medical History (Updated 02/24/24 @ 16:32 by Cherie Beauchamp MD) Physical exam Left wrist sprain Hair loss Encounter to discuss test results Pelvic cramping Encounter for annual routine gynecological examination Local reaction to COVID-19 vaccine Fatigue Morbid obesity Rash Dizziness Cough Migraine with aura CHRISTO (generalized anxiety disorder) Severe major depression Depression CKD (chronic kidney disease) Asthma Surgical History No history of previous surgery Family History Mother Heart attack Father Deaf Family/Other Substance use disorder Mental health disorder Social History Housing: House Housing Other:: living with parents Alcohol intake: current Alcohol intake frequency: holidays/special occasions only Alcohol type: wine and hard liquor Patient Tobacco Use Status: Never used Tobacco e-Cigarette/Vaping Use: Never Used Second Hand Smoke Exposure: No Substance Use Type: Marijuana service: No Current occupational status: employed Current occupational exposures/hazards: No Sexual orientation: Bisexual Gender identity: Female Cognitive needs: No Hearing needs: No Vision needs: No Questionnaire PHQ-9 Over the last 2 weeks, how often have you been bothered by any of the following problems? 1. Little interest or pleasure in doing things: not at all 2. Feeling down, depressed, or hopeless: several days 3. Trouble falling or staying asleep, or sleeping too much: more than half the days 4. Feeling tired or having little energy: not at all 5. Poor appetite or overeating: several days 6. Feeling bad about yourself - or that you are a failure or have let yourself or your family down: not at all 7. Trouble concentrating on things, such as reading the newspaper or watching television: more than half the days 8. Moving or speaking so slowly that other people could have noticed. Or the opposite - being so fidgety or restless that you have been moving around a lot more than usual: not at all 9. Thoughts that you would be better off or of hurting yourself in some way: not at all Total score: 6 Depression Screening Interpretation: Positive Depression Screening Follow-up: Existing condition, Community Mental Health Worker F/U and Follow-up Visit Requested Depression Screening Done: Yes 79954 - PHQ-9 Billing: Yes Source: Developed by Drs. Maykel Conroy, Julia Alejandro, Félix Smiley and colleagues, with an educational dutch from [employer]. Thrive Questionnaire Date Thrive assessed: 02/24/24 I am a: Patient What is your living situation today?: I have a steady place to live Within the past 12 months, did the food you bought not last and you didn't have the money to get more?: Never true Within the past 12 months, did you worry whether your food would run out before you got money to buy more?: Never true Do you have trouble paying for medicines?: No Do you have trouble getting transportation to medical appointments?: No Do you have trouble paying your heating and electricity bill?: No Do you have trouble taking care of your child, family member or friend?: No Do you have trouble with day-to-day activities such as bathing, preparing meals, shopping, managing finances, etc.?: No Are you currently unemployed and looking for a job?: No Are you interested in more education?: No Please select the resources that you would like help with: None Currently or been in a relationship where the following occur: No concerns reported THRIVE Score: 0 AUDIT C Alcohol Use Questionnaire (AUDIT-C) 1. How often do you have a drink containing alcohol?: Monthly or less 2. How many drinks containing alcohol do you have on a typical day when you are drinking?: 1 or 2 3. How often do you have six or more drinks on one occasion?: Never Total Score: 1 Score Reviewed/Action Taken: No CHRISTO-7 AMB Questionnaire CHRISTO-7 Date CHRISTO - 7 assessed: 02/24/24 Feeling nervous, anxious, or on edge: 1 = Several days Not being able to stop or control worryin = Not at all Worrying too much about different things: 3 = Nearly every day Trouble relaxin = Several days Being so restless that it is hard to sit still: 1 = Several days Becoming easily annoyed or irritable: 1 = Several days Feeling afraid as if something awful might happen: 1 = Several days Total CHRISTO-7 score (0-4 normal; 5-9 mild; 10-14 moderate; 15-21 severe): 8 Source: Developed by Drs. Maykel Conroy, Julia Alejandro, Félix Smiley and colleagues, with an educational dutch from [employer]. CHRISTO-7 Assessment Billing CHRISTO-7 Assessment Tool: CHRISTO-7 Assessment 80451 Review of Systems Const All systems reviewed & are unremarkable except as noted in HPI and below Card Denies chest pain at rest, Denies chest pain with activity, Denies edema, Denies irregular heart rhythm, Denies claudication, Denies dyspnea, Denies dyspnea on exertion, Denies orthopnea, Denies paroxysmal nocturnal dyspnea and Denies slow heart rate Resp Denies cough, Denies dyspnea and Denies dyspnea on exertion GI Denies abdominal pain, Denies change in bowel habits, Denies excessive flatus, Denies nausea and Denies vomiting Denies urinary incontinence, Denies urinary hesitancy and Denies urinary urgency Musc Denies abnormal gait, Denies atrophy, Denies deformity and Denies limited range of motion Skin/Breast Denies bleeding lesions, Denies changing lesions and Denies rash Neuro Denies abnormal gait and Denies lack of coordination Physical exam (Primary Care) Vital Signs: Last Vital Signs BP 118/82 02/24/24 16:02 BMI result Body Mass Index 42.3 BMI Assessment/Plan discussion: High BMI High, discussed plan: lifestyle, weight reduction, dietary and physical activity Tobacco/Smoking Status: Tobacco use Status Tobacco use date assessed 02/24/24 02/24/24 16:09 Patient Tobacco Use Status Never used Tobacco 02/24/24 16:01 e-Cigarette/Vaping Use Never Used 02/24/24 16:01 PHQ-9: PHQ-9 Score PHQ-9: Total score 6 02/24/24 16:09 Depression Screening Interpretation: Positive Depression Screening Follow-up: Existing condition, Community Mental Health Worker F/U and Follow-up Visit Requested Thrive Assessment: Date of Thrive Assessment Date Thrive assessed 02/24/24 02/24/24 16:09 Currently or been in a relationship where the following occur: No concerns reported HENWV Head: Yes normal to inspection, Yes normocephalic and Yes atraumatic Ears: external ears normal Eyes General: appearance normal, both eyes and all related structures Eyelids: Yes eyelids normal Conjunctivae: conjunctivae normal Neck Neck: Yes normal visual inspection and Yes supple Resp Effort & Inspection: normal respiratory effort Auscultation: clear to auscultation bilaterally Cardio Jugular venous distension: no JVD Rate: regular rate Rhythm: regular rhythm Heart sounds: S1 normal heart sound present and S2 normal heart sound present GI Inspection: Yes normal to inspection Palpation (GI): Soft to palpation and nontender Auscultation: normal bowel sounds Skin General skin exam: no rashes or lesions noted Neuro General: no focal motor deficits Extrem General: Yes full ROM Psych Appearance: grossly normal Assessment and Plan Assessment & Plan (1) Physical exam: Code(s): Z00.00 - Encounter for general adult medical examination without abnormal findings Plan: Repeat in a year. (2) Morbid obesity due to excess calories: Code(s): E66.01 - Morbid (severe) obesity due to excess calories Plan: Start diet and exercise. BMI goal is less than 30. (3) Mild major depression: Code(s): F32.0 - Major depressive disorder, single episode, mild Plan: Continue counseling. Orders: Orders Lipid Panel Today E66.01 - Morbid (severe) obesity due to excess calories, E78.5 - Hyperlipidemia, unspecified Comprehensive [place]. Panel Fast Today E66.01 - Morbid (severe) obesity due to excess calories Complete Blood Count Auto Diff Today L68.0 - Hirsutism Vitamin D 25-OH Total Today E55.9 - Vitamin D deficiency, unspecified Saliva Cortisol Today L68.0 - Hirsutism Coding Level of Care Code Est Pt Prev Care 18-39y([id number]) Diagnoses Physical exam Z00.00 Morbid obesity due to excess calories E66.01 Mild major depression F32.0 Additional Codes CHRISTO-7 Assessment Billing - CHRISTO-7 Assessment Tool: CHRISTO-7 Assessment 67622 ([id number]) Time Spent (min) 33
[2024-02-24 16:02] VITALS: BP 118/82; BMI 42.3
== END 2024-02-24 16:28 | disposition home or self-care (01) ==
PROVIDERS: PCP Internal Medicine; Visit Provider Internal Medicine
DX: Z00.00 Encounter for general adult medical examination without abnormal findings (principal); E66.01 Morbid (severe) obesity due to excess calories; F32.0 Major depressive disorder, single episode, mild; Z68.41 Body mass index [BMI] 40.0-44.9, adult
CPT/HCPCS: 99395

== ENCOUNTER 2024-03-01 12:02 | Emergency (ER) | payer BC, SELFPAY ==
--- NOTE | ~2024-03-01 | XR_ITS ---
EXAMINATION: XR HAND/WRIST, LEFT CLINICAL INFORMATION: Left hand and wrist pain COMPARISON: None TECHNIQUE: PA, lateral, and oblique views of left hand and wrist. FINDINGS: LEFT HAND/WRIST: The bones and soft tissues are normal. No fracture. Alignment is anatomic. Joint spaces are maintained. No erosions or soft tissue calcifications. XR/XR hand wrist LT IMPRESSION: Normal left hand and wrist. Electronically signed by: Rodney Burdick MD 03/01/2024 01:58 PM EDT
--- NOTE | 2024-03-01 12:03 | ED.GENADULT ---
HPI - General Adult General Chief complaint: Extremity Injury, Upper Stated complaint: L wrist inj Time Seen by Provider: 03/01/24 12:18 Source: patient Mode of arrival: ambulatory Limitations: no limitations History of Present Illness ED Provider: CARLA COTTON PA-C HPI narrative: 23-year-old right hand dominant female with pmhx significant for asthma, CHRISTO, depression, CKD, obesity, hirsutism, migraine with aura presents to the ED today for evaluation of left wrist pain s/p mechanical fall last night. Patient states that putting up lights in her shed last night, she came into contact with a spider web which caused her to jump backward and fall from standing height, striking her left hand/wrist on a near by stool. Denies head strike or LOC. Not on anticoagulation. Reports persistent pain to her entire left wrist, extending into the left hand. Worse with gripping objects. Denies numbness/tingling/weakness of the LUE. Denies any other concners. Took tylenol at 0400 this morning with minimal relief. Related Data Previous Rx's ?Medication ?Instructions ?Recorded norethindrone (contraceptive) 0.35 0.35 mg PO DAILY #84 tabs 03/19/23 mg tablet (Jessica) Allergies Allergy/AdvReac Type Severity Reaction Status Date / Time No Known Allergies Allergy Verified 03/01/24 12:06 Review of Systems Review of Systems: Constitutional: No fever, chills, fatigue, night sweats, weight changes ENT/Mouth: No ear pain, hearing loss, nasal congestion, sinus pain, rhinorrhea, sore throat Eyes: No eye pain, swelling, redness, vision changes, discharge Cardio: No chest pain, palpitations, FISHER, orthopnea, peripheral edema Pulm: No SOB, cough, sputum, wheezing, dyspnea, hemoptysis GI: No nausea, vomiting, hematemesis, abdominal pain, diarrhea, constipation, hematochezia, melena : No irregular bleeding, dysuria, frequency, urgency, hesitancy, hematuria, flank pain, urinary flow changes, urinary incontinence or retention MSK: No back pain, neck pain, joint pain, myalgias Skin: No lesions, rashes, +left hand/wrist pain Neuro: No weakness, numbness, paresthesias, LOC, dizziness, headache Psych: No anxiety/panic, depression, SI/HI, AH/VH All other systems reviewed and are negative. [facility] Past Medical History Attestation statement: The following information was validated with the patient. Source: old records reviewed and nursing notes reviewed Medical History Physical exam Left wrist sprain Hair loss Encounter to discuss test results Pelvic cramping Encounter for annual routine gynecological examination Local reaction to COVID-19 vaccine Fatigue Morbid obesity Rash Dizziness Cough Migraine with aura CHRISTO (generalized anxiety disorder) Severe major depression Depression CKD (chronic kidney disease) Asthma Surgical History No history of previous surgery Family History Family History Mother Heart attack Father Deaf Family/Other Substance use disorder Mental health disorder Social History Social History Housing: House Housing Other:: living with parents Alcohol intake: current Alcohol intake frequency: holidays/special occasions only Alcohol type: wine and hard liquor Patient Tobacco Use Status: Never used Tobacco e-Cigarette/Vaping Use: Never Used Second Hand Smoke Exposure: No Substance Use Type: Marijuana Advance Directives: No Advance Directives Information Provided: No Do you have a plan to hurt others: No Plan service: No Current occupational status: employed Current occupational exposures/hazards: No Sexual orientation: Bisexual Gender identity: Female Cognitive needs: No Hearing needs: No Vision needs: No Physical Exam ED Vital Signs: Vital Signs - 24 hr 03/01/24 12:04 Temperature 97.9 F Pulse Rate 93 Respiratory Rate 18 Blood Pressure 141/87 H Pulse Oximetry 97 Oxygen Delivery Method Room Air BMI result Body Mass Index 42.3 Hypertensive to 141/87 vitals otherwise wnl. Const General: cooperative, healthy appearing, comfortable and no acute distress Orientation/consciousness: patient oriented x3 Limitations: no limitations HENMT Head: Yes normal to inspection, Yes No palpable skull fracture present, Yes normocephalic and Yes atraumatic Eyes General: appearance normal, both eyes and all related structures Pupils: Equal, round and reactive pupils present Neck Other: no midline c spine tenderness Neck: Yes normal visual inspection and Yes full ROM Resp Effort & Inspection: normal respiratory effort and able to speak in complete sentences Auscultation: clear to auscultation bilaterally Cardio Rate: regular rate Rhythm: regular rhythm Skin General skin exam: no rashes or lesions noted Neuro Other: Strength 5/5 intact throughout.?Sensation intact to light touch.?Neurovascular intact distally.? General: patient oriented x3, gait normal and moves all extremities Cranial nerves: Yes Equal, round and reactive pupils present Extrem Other: + left hand/wrist without noted swelling, deformity or overlying skin changes. Full ROM intact to left wrist with pain on gripping. Propellant Charge Loader strength intact. finger to thumb opposition intact. Slightly tender to palpation over dorsal and ventral aspects of wrist without palpable deformity. no snuffbox tenderness. 2+ radial and ulnar pulse intact. General: Yes normal to inspection Course Course Course Narrative: This is a rapid medical exam performed by Ken Velasquez NP: Additional HPI, ROS, PE not included below will be deferred to primary provider. Patient is a 23-year-old right hand dominant female with history of CKD, obesity, hirsutism, asthma, CHRISTO, depression presenting to the emergency department with complaint of left wrist and hand pain after a fall last night. Was putting up lights in her shed when she fell from standing and left hand hit a stool. Full ROM to left wrist, all fingers of L hand, 2+ radial pulse, normal capillary refill all fingers, no ecchymosis Plan: xrays Reevaluation(s) Reevaluation #1: 1423 -- XR left hand/ wrist does not demonstrate fracture or other pathology. Suspicion for contusion. Will provide patient with wrist splint for comfort. Advised to take Tylenol at home. Patient has remained stable throughout ED visit today. Discussed worrisome signs and symptoms and when to return to the ED. All questions answered at this time. Patient is agreeable with disposition and stable for discharge. Medications Administered Discontinued Medications Generic Name Dose Route Start Last Admin Trade Name Freq PRN Reason Stop Dose Admin Acetaminophen 975 mg 03/01/24 12:24 03/01/24 12:40 Acetaminophen 325 Mg Tablet PO 03/01/24 12:25 975 mg ONCE ONE Administration Procedures Orthopedic Splinting/Casting Injury #1: Side: left Upper Extremity Injury Location: wrist Upper Extremity Immobilizer: wrist splint Medical Decision Making Medical Decision Making MDM Narrative: 23-year-old right hand dominant female with pmhx significant for asthma, CHRISTO, depression, CKD, obesity, hirsutism, migraine with aura presents to the ED today for evaluation of left wrist pain s/p mechanical fall last night. Patient hypertensive to 141/87, vitals otherwise wnl. Exam significant for: left hand/wrist without noted swelling, deformity or overlying skin changes. Full ROM intact to left wrist with pain on gripping. Propellant Charge Loader strength intact. finger to thumb opposition intact. Slightly tender to palpation over dorsal and ventral aspects of wrist without palpable deformity. no snuffbox tenderness. 2+ radial and ulnar pulse intact. NV intact distally. Differential diagnosis includes msk sprain/ strain, contusion, fracture. Unlikely dislocation, compartment syndrome, nv compromise, threat to limb. Plan for imaging, pain control, and re-evaluation. Differential Diagnosis Differential Diagnoses: The differential diagnosis associated with the presentation includes as above. Admission/Observation Not indicated. Independent Interpretation I performed an independent interpretation of an: Plain X-Ray Interpretation: Xr left hand/ wrist without fracture or dislocation, agree with radiologist's interpretation. Radiology Impression Discussion of test interpretation with radiology: I have reviewed the radiologist's reading. Radiologist Impression: EXAMINATION: XR HAND/WRIST, LEFT CLINICAL INFORMATION: Left hand and wrist pain COMPARISON: None TECHNIQUE: PA, lateral, and oblique views of left hand and wrist. FINDINGS: LEFT HAND/WRIST: The bones and soft tissues are normal. No fracture. Alignment is anatomic. Joint spaces are maintained. No erosions or soft tissue calcifications. XR/XR hand wrist LT IMPRESSION: Normal left hand and wrist. Electronically signed by: Rodney Burdick MD 03/01/2024 01:58 PM EDT External Record Review External record reviewed: Inpatient record, Office record, Outpatient record, Prior outpatient labs, Prior outpatient radiology, Primary care record and Outside ED record Prescription Management I considered prescription management with: Pain Medication Social Determinants Patient?s care significantly limited by Social Determinants of Health including: Other Social Determinant of Health Critical Care Time Critical Care Time Critical Care Time: No Discharge Plan Discharge Clinical Impression: Left wrist sprain Qualifiers: Encounter type: initial encounter Qualified Code(s): S63.502A - Unspecified sprain of left wrist, initial encounter Patient Disposition: Home, Self-Care Instructions: Wrist Injury (ED), Sprain (ED) Additional Instructions: The xray of your left hand/ wrist is normal. You have been provided with a wrist splint for comfort. Take tylenol every 6 hours as needed for pain. If pain persists, please follow up with your PCP. Return with new or worsening symptoms. In the case of an emergency call 911. Prescriptions: No Action norethindrone (contraceptive) [Jessica] 0.35 mg tablet 0.35 mg PO DAILY Qty: 84 4RF Referrals: Cherie Luna MD [Primary Care Provider] - Stand Alone Forms: Work/School Release Print Language: Russian
[2024-03-01 12:04] VITALS: BP 141/87; PULSE 93; RESP 18; TEMP 36.6; O2SAT 97; BMI 42.3
[2024-03-01] MEDS: Acetaminophen 325 MG TABLET 975 MG PO (12:40)
[2024-03-01 14:59] VITALS: BP 141/87; PULSE 93; RESP 18; TEMP 36.6; O2SAT 97
== END 2024-03-01 15:00 | disposition home or self-care (01) ==
PROVIDERS: Emergency Provider Emergency Medicine; PCP Internal Medicine
DX: S63.502A Unspecified sprain of left wrist, initial encounter (principal); M25.532 Pain in left wrist; M79.642 Pain in left hand; W01.0XXA Fall on same level from slipping, tripping and stumbling without subsequent striking against object, initial encounter; Y93.89 Activity, other specified; Y92.89 Other specified places as the place of occurrence of the external cause; Y99.8 Other external cause status
CPT/HCPCS: 29125; 73110; 73130; 99283; 99284

== ENCOUNTER 2024-03-18 14:11 | Outpatient (AMB) | payer OTHER, SELFPAY ==
--- NOTE | 2024-03-18 14:16 | A.OFFVIS_ITS ---
VS Expanded 03/18/24 14:18 Height 5 ft 5 in Weight 249 lb 12.54 oz BMI 41.6 Intake Visit Reasons: obesity/CONFIRMED Allergies No Known Allergies Allergy (Verified 03/01/24 12:06) Nutrition Presentation Details: Pt presents for f/u for obesity Pt reports working on re establishing meal routine. Working on choosing low sodium food options. frequency Fruits/day: 0-1 vegetables: 3-4 serving/d evening mostly dairy: 3-4 ( cheese preferably) fish: 0-1/week fried foods : 1 x/wk high processed foods 4-5 x/wk BS Monitoring Most Recent Diabetes Results: No Data to Display [facility] Medical History Physical exam Left wrist sprain Hair loss Encounter to discuss test results Pelvic cramping Encounter for annual routine gynecological examination Local reaction to COVID-19 vaccine Fatigue Morbid obesity Rash Dizziness Cough Migraine with aura CHRISTO (generalized anxiety disorder) Severe major depression Depression CKD (chronic kidney disease) Asthma Surgical History No history of previous surgery Family History Mother Heart attack Father Deaf Family/Other Substance use disorder Mental health disorder Social History Housing: House Housing Other:: living with parents Alcohol intake: current Alcohol intake frequency: holidays/special occasions only Alcohol type: wine and hard liquor Patient Tobacco Use Status: Never used Tobacco e-Cigarette/Vaping Use: Never Used Second Hand Smoke Exposure: No Substance Use Type: Marijuana service: No Current occupational status: employed Current occupational exposures/hazards: No Sexual orientation: Bisexual Gender identity: Female Cognitive needs: No Hearing needs: No Vision needs: No Assessment & Plan Assessment & Plan (1) Morbid obesity due to excess calories: Code(s): E66.01 - Morbid (severe) obesity due to excess calories Category: Medical Plan: Educate Pt on 2300 [address] meal plan ? Used wt : 120 kg (03/2022), 116 kg (01/2023), 115 kg (04/2023), 118 kg (), 115 kg (09/2023), 113 kg ( 12/2023, 03/31) Est kcal as per MSJ: 2350 (40% carb, 30% fat/prot) Est fluid needs: 8445-4274 ml/d (25-35 ml/kg bw) Rec fiber: increase to 8-10 g per day and gradually increase to 25 g/d or as tolerated Rec Na: < 2000 mg /d Educate patient on: (R= Reviewed, V = verbalizes understanding N/R= Needs review N/A= not applicable) * Food sources of carbohydrates and serving adequate serving sizes : R * Difference between complex carbohydrates and simple carbohydrates, role of fiber: R * Differences between fats (MUFA/PUFA/saturated fats, trans fats) and food sources of various fats: R, V * Food sources of sodium and salt and healthy modifications for heart health and kidney health: R * Vitamins and minerals: R, discussed Vit D sources of foods, b vit, iron * How to interpret food labels: R, V * Healthy Plate method concept: R * Physical activity: benefits and precaution: R * Mindful eating, lowering high calorie foods R, V * including fruit in diet , R Patient Instructions: Continue working on choosing fruits as snack , reducing on snacks with salt Reducing salty foods by choosing less highly processed foods Coding Level of Care Code Nutr Indiv Subseq (52502) Diagnoses Morbid obesity due to excess calories E66.01 Time Spent (min) 20
[2024-03-18 14:18] VITALS: BMI 41.6
== END 2024-03-18 14:41 | disposition home or self-care (01) ==
PROVIDERS: PCP Internal Medicine; Visit Provider Dietitian, Registered
DX: E66.01 Morbid (severe) obesity due to excess calories (principal)

== ENCOUNTER → 2024-03-18 14:11 | Outpatient (BNVA) | payer SELFPAY | PROVIDERS: PCP Internal Medicine; Visit Provider Dietitian, Registered | DX: E66.01 Morbid (severe) obesity due to excess calories (principal); Z68.41 Body mass index [BMI] 40.0-44.9, adult; Z71.3 Dietary counseling and surveillance | CPT/HCPCS: 97803 ==

== ENCOUNTER 2024-03-25 14:22 | Outpatient (AMB) | payer BC, SELFPAY ==
--- NOTE | 2024-03-25 14:28 | MHC.OFFVIS ---
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 Doing well with concerns: She reports unscheduled intermittent bleeding with the use of [place], admits to an occasional late or missed pill. Her partner was worried about any potential complications such as uterine cancer. History of migraines with aura. Has slight external itching intermittently. She tries to eat healthy and stays active with exercise. Currently is sexually active. Denies family history of breast, ovarian or colon cancer. She denies any history of DVT or pulmonary emboli. Last pap smear 2021, negative. [facility] Medical History Physical exam Left wrist sprain Hair loss Encounter to discuss test results Pelvic cramping Encounter for annual routine gynecological examination Local reaction to COVID-19 vaccine Fatigue Morbid obesity Rash Dizziness Cough Migraine with aura CHRISTO (generalized anxiety disorder) Severe major depression Depression CKD (chronic kidney disease) Asthma Surgical History No history of previous surgery Family History Mother Heart attack Father Deaf Family/Other Substance use disorder Mental health disorder Social History Housing: House Housing Other:: living with parents Alcohol intake: current Alcohol intake frequency: holidays/special occasions only Alcohol type: wine and hard liquor Patient Tobacco Use Status: Never used Tobacco e-Cigarette/Vaping Use: Never Used Second Hand Smoke Exposure: No Substance Use Type: Marijuana service: No Current occupational status: employed Current occupational exposures/hazards: No Sexual orientation: Bisexual Gender identity: Female Cognitive needs: No Hearing needs: No Vision needs: No Female Reproductive History Menstrual Age of Menarche: 11 Duration of menses: 3-5 days Date of last menstrual period: 03/19/24 control method: pills Total pregnancies: 0 Date of last pap smear: 10/24/21 History of abnormal pap smear: No Review of Systems Const All systems reviewed & are unremarkable except as noted in HPI and below Reports as per HPI Eyes Reports no additional complaints ENT Reports no additional complaints Card Reports no additional complaints Resp Reports no additional complaints GI Reports as per HPI and Reports no additional complaints Reports as per HPI Musc Reports no additional complaints Skin/Breast Reports as per HPI Neuro Reports no additional complaints Psych Reports no additional complaints Endo Reports no additional complaints Surinder/Lymph Reports no additional complaints Aller/Immun Reports no additional complaints Physical Exam Vital Signs: Last Vital Signs BP 114/78 03/25/24 14:29 BMI result Body Mass Index 41.5 Const General: cooperative, healthy appearing, no acute distress, well developed and alert Orientation/consciousness: patient oriented x3 HEENT Head: Yes normal to inspection Eyes General: appearance normal, both eyes and all related structures Neck Neck: Yes normal visual inspection Thyroid: Thyroid normal Chest Chest palpation & inspection: normal inspection of the chest and other (no puckering, dimpling, peau de orange, retraction, discharge, masses) Breast/axilla inspection: normal inspection of the breasts Breast/axilla palpation: normal palpation of the breasts Resp Effort & Inspection: normal respiratory effort GI Inspection: Yes normal to inspection Palpation (GI): Soft to palpation Rectal Exam - Female: deferred General: Yes bladder normal to palpation External Female Exam: normal external appearance and normal appearance of the urethra Speculum Exam - Vagina: normal appearance of the vagina, normal palpation and normal vaginal discharge Speculum Exam - Cervix: normal appearance of the cervix and normal palpation Bimanual exam- vagina & uterus: normal bimanual exam, normal palpation, uterine size normal, bladder normal to palpation, normal palpation and non-tender Bimanual Exam- Adnexa, other: no masses Skin General skin exam: no rashes or lesions noted Rashes: no rashes Neuro General: patient oriented x3 Cognition (Neuro): normal cognition Extrem General: Yes normal to inspection Psych Attitude: cooperative Thought process: Normal thought process present Results AMB Test Urine AMB Test Urine Negative Last Edit by Chary Valencia LPN on 03/25/24 15:25 Assessment & Plan Assessment & Plan (1) Encounter for well woman exam with routine gynecological exam: Code(s): Z01.419 - Encounter for gynecological examination (general) (routine) without abnormal findings Category: Medical (2) Irregular bleeding: Code(s): N92.6 - Irregular menstruation, unspecified Category: Medical Plan Discussed: Current recommendations for pap smears per ASCCP guidelines. Breast awareness and periodic breast exams. Maintain a healthy lifestyle including a well balanced diet and routine exercise. Sensitivity of progesterone only pills with timing, breakthrough bleeding often noted if the pill is taken late due to the sensitivity. UPT is negative today. Plan GC chlamydia, BV panel and pelvic ultrasound to rule out any other causative reasons, plans fasting blood work soon additional TSH added. Plan follow up in person to discuss results, consider other options for progesterone only including IUD, or other options. Due to history of heavier cycles without control most likely ParaGard not best option at this time. She denies any contraindications to control such as: migraines with aura, history of DVT or pulmonary emboli, high blood pressure, liver disease, thrombolic disorders, Lupus, +MARILYN, breast cancer, or smoking. Patient verbalizes understanding and agrees to the plan of care. She was given opportunity to ask questions and all questions were answered to the best of my ability. 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 This note is constructed using voice recognition software. While every effort has been made to ensure accuracy, non destructive testing scientist errors may have been included. Orders: Orders Thyroid Stimulating Hormone Today N92.6 - Irregular menstruation, unspecified US pelvic and transvaginal Today N92.6 - Irregular menstruation, unspecified CT NG by PCR Today N92.6 - Irregular menstruation, unspecified Bacterial Vaginosis Panel Today N89.8 - Other specified noninflammatory disorders of vagina Coding Level of Care Code Est Pt Prev Care 18-39y(66931) Diagnoses Encounter for well woman exam with routine gynecological exam Z01.419 Irregular bleeding N92.6
[2024-03-25 14:29] VITALS: BP 114/78; BMI 41.5
== END 2024-03-25 15:39 | disposition home or self-care (01) ==
PROVIDERS: PCP Internal Medicine; Visit Provider Advanced Practice Midwife
DX: Z01.419 Encounter for gynecological examination (general) (routine) without abnormal findings (principal); N92.6 Irregular menstruation, unspecified
CPT/HCPCS: 99395

== ENCOUNTER 2024-03-25 14:22 | Outpatient (REF) | payer BC, SELFPAY ==
[2024-03-25 17:06] LABS: Bacterial Vaginosis PCR NEGATIVE (Negative); Candida Group PCR NOT DETECTED (Not Detect); Candida glab krusei PCR NOT DETECTED (Not Detect); Trichomonas vaginalis PCR NOT DETECTED (Not Detect)
[2024-03-25 17:42] LABS: CT PCR NOT DETECTED (Not Detect.); NG PCR NOT DETECTED (Not Detect.)
== END 2024-03-25 14:23 | disposition home or self-care (01) ==
LOC: HO.LNP 14:22
PROVIDERS: PCP Internal Medicine; Visit Provider Advanced Practice Midwife
DX: N92.6 Irregular menstruation, unspecified (principal); N89.8 Other specified noninflammatory disorders of vagina
CPT/HCPCS: 0352U; 87491; 87591

== ENCOUNTER 2024-03-31 10:14 | Outpatient (REF) | payer BC, SELFPAY ==
--- NOTE | ~2024-03-31 | US_ITS ---
EXAMINATION: US PELVIS CLINICAL INFORMATION: Irregular menstruation. LMP 03/19/2024. COMPARISON: Pelvic ultrasound 11/09/2021. TECHNIQUE: Ultrasound of the pelvis is performed using both transabdominal and transvaginal transducers along with Doppler. Transvaginal imaging is performed due to inadequate visualization transabdominally. FINDINGS: Retroverted uterus with normal morphology measuring 7.2 x 3.4 x 4 cm. No uterine mass. Homogeneous endometrium measuring 0.5 cm in thickness. There is a 1.7 x 1.3 x 1.7 cm cystic appearing observation in the right ovary with homogeneous low level internal echoes. Adjacent to this, there is a 2.4 x 1.6 x 2.2 cm simple appearing dominant follicle in the right ovary. The right ovary is asymmetrically enlarged compared to the left, most likely related to the presence of these cysts measuring approximately 4.7 x 3 x 3.7 cm (27.5 mL). At the moment of this examination there is preserved flow to both ovaries on color Doppler. The left ovary is unremarkable measuring 2.2 x 1.8 x 1.4 cm, 2.9 mL. Trace amount of simple appearance fluid in the cul-de-sac. US/US pelvic and transvaginal IMPRESSION: There is a 1.7 cm cystic appearing lesion in the right ovary with low-level internal echoes for which differential considerations include endometrioma and hemorrhagic cyst. Recommend follow-up with pelvic ultrasound in 6-8 weeks. If there is a high clinical suspicious for endometriosis, consider further evaluation with pelvic MRI with and without intravenous contrast. Electronically signed by: Ladonna Anderson MD 04/02/2024 04:15 PM EDT
[2024-03-31 10:39] LABS: MANUAL DIFF FLAG NO
[2024-03-31 11:45] LABS: Basophils Percent Auto 0.4 % (0-2); Eosinophils Absolute Auto 0.1 X10*3/uL (0.0-0.4); Eosinophils Percent Auto 0.6 % (0-4); Hematocrit 43.1 % (37.0-47.0); Hemoglobin 14.2 g/dl (12.0-16.0); Imm Gran Abs Auto 0.02 X10*3/uL (0.00-0.03); Imm Gran Pct Auto 0.2 % (0.0-0.4); Lymphocytes Absolute Auto 2.2 X10*3/uL (1.2-4.9); Lymphocytes Percent Auto 23.5 % (20-40); Mean Corpuscular HGB Conc 32.9 g/dl (31.0-35.0); Mean Corpuscular Hemoglobin 30.8 pg (27.0-33.0); Mean Corpuscular Volume 93.5 fL (80.0-98.0); Mean Platelet Volume 10.8 fL (9.4-12.3); Monocytes Absolute Auto 0.7 X10*3/uL (0.1-1.2); Monocytes Percent Auto 7.1 % (2-11); Neutrophils Absolute Auto 6.3 x10*3/uL (2.0-8.3); Neutrophils Percent Auto 68.2 % (45-73); Platelet Count 294 X10*3/uL (160-400); Red Blood Count 4.61 X10*6/uL (4.20-5.50); White Blood Count 9.3 X10*3/uL (4.8-10.8)
[2024-03-31 12:23] LABS: Alanine Aminotransferase 14 U/L (0-31); Albumin Level 4.1 g/dL (3.5-5.0); Alkaline Phosphatase 52 U/L (39-117); Anion Gap 10 (12-20); Aspartate Amino Transferase 13 U/L (5-31); Bilirubin Total 0.3 mg/dL (0.0-1.0); Blood Urea Nitrogen 14 mg/dL (9-16); Calcium 8.9 mg/dL (8.4-10.2); Carbon Dioxide 25 mmol/L (22-29); Chloride 110 mmol/L (96-108); Cholesterol 132 mg/dL (<200); Estimated Glomerular Filt Rate > 60; Glucose Fasting 96 mg/dL (60-99); HDL Cholesterol 36 mg/dL (>40); LDL Cholesterol Calculated 87 mg/dL (<100); Potassium 3.9 mmol/L (3.3-5.1); Sodium 141 mmol/L (135-145); Total Protein 7.1 g/dL (6.5-8.0); Triglycerides 48 mg/dL (<150)
[2024-04-01 05:22] LABS: Thyroid Stimulating Hormone 0.73 uIU/mL (0.32-4.0)
== END 2024-03-31 10:15 | disposition home or self-care (01) ==
LOC: HO.US 10:14
PROVIDERS: Absent Provider Internal Medicine; PCP Internal Medicine; Visit Provider Advanced Practice Midwife
DX: N92.6 Irregular menstruation, unspecified (principal); E78.5 Hyperlipidemia, unspecified; E66.01 Morbid (severe) obesity due to excess calories; E55.9 Vitamin D deficiency, unspecified; L68.0 Hirsutism
CPT/HCPCS: 36415; 76830; 76856; 80053; 80061; 82306; 84443; 85025

== ENCOUNTER 2024-04-24 13:49 | Outpatient (AMB) | payer BC, SELFPAY ==
--- NOTE | 2024-04-24 13:51 | MHC.OFFVIS ---
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 She has a history of breakthrough bleeding with Chilmark despite taking pill on time. Her partner Medardo is present for the visit. She reports a last cycle she had breakthrough bleeding for a short period of time. She admits midline pelvic pain at times. She is not interested in the Mirena IUD. History of migraines with aura. She reports today that she used Depo-Provera in the past and had develop hives after her last 2 injections, a proximally 2019. 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 [facility] Medical History Physical exam Left wrist sprain Hair loss Encounter to discuss test results Pelvic cramping Encounter for annual routine gynecological examination Local reaction to COVID-19 vaccine Fatigue Morbid obesity Rash Dizziness Cough Migraine with aura CHRISTO (generalized anxiety disorder) Severe major depression Depression CKD (chronic kidney disease) Asthma Surgical History No history of previous surgery Family History Mother Heart attack Father Deaf Family/Other Substance use disorder Mental health disorder Social History Housing: House Housing Other:: living with parents Alcohol intake: current Alcohol intake frequency: holidays/special occasions only Alcohol type: wine and hard liquor Patient Tobacco Use Status: Never used Tobacco e-Cigarette/Vaping Use: Never Used Second Hand Smoke Exposure: No Substance Use Type: Marijuana service: No Current occupational status: employed Current occupational exposures/hazards: No Sexual orientation: Bisexual Gender identity: Female Cognitive needs: No Hearing needs: No Vision needs: No Female Reproductive History Menstrual Age of Menarche: 11 Date of last menstrual period: 04/16/24 Review of Systems Const All systems reviewed & are unremarkable except as noted in HPI and below Endo Reports no additional complaints Physical Exam Vital Signs: Last Vital Signs BP 110/60 04/24/24 13:54 Const General: cooperative, healthy appearing and no acute distress Psych Appearance: well kempt Attitude: cooperative Thought process: Normal thought process present Results Reviewed Results Reviewed: [address] [address] Ultrasound Report Signed Patient: Alison Cornejo MR#: [id number] : 2000 Acct:[id number] Age/Sex: 23 / F ADM Date: 03/31/24 Loc: HO.US Attending Dr: Mis Sanchez CNM Ordering Physician: Mis Sanchez CNM Date of Service: 03/31/24 Procedure(s): US pelvic and transvaginal Accession Number(s): [id number] cc: Mis Sanchez CNM; Cherie Luna MD~ EXAMINATION: US PELVIS CLINICAL INFORMATION: Irregular menstruation. LMP 03/19/2024. COMPARISON: Pelvic ultrasound 11/09/2021. TECHNIQUE: Ultrasound of the pelvis is performed using both transabdominal and transvaginal transducers along with Doppler. Transvaginal imaging is performed due to inadequate visualization transabdominally. FINDINGS: Retroverted uterus with normal morphology measuring 7.2 x 3.4 x 4 cm. No uterine mass. Homogeneous endometrium measuring 0.5 cm in thickness. There is a 1.7 x 1.3 x 1.7 cm cystic appearing observation in the right ovary with homogeneous low level internal echoes. Adjacent to this, there is a 2.4 x 1.6 x 2.2 cm simple appearing dominant follicle in the right ovary. The right ovary is asymmetrically enlarged compared to the left, most likely related to the presence of these cysts measuring approximately 4.7 x 3 x 3.7 cm (27.5 mL). At the moment of this examination there is preserved flow to both ovaries on color Doppler. The left ovary is unremarkable measuring 2.2 x 1.8 x 1.4 cm, 2.9 mL. Trace amount of simple appearance fluid in the cul-de-sac. US/US pelvic and transvaginal IMPRESSION: There is a 1.7 cm cystic appearing lesion in the right ovary with low-level internal echoes for which differential considerations include endometrioma and hemorrhagic cyst. Recommend follow-up with pelvic ultrasound in 6-8 weeks. If there is a high clinical suspicious for endometriosis, consider further evaluation with pelvic MRI with and without intravenous contrast. Electronically signed by: Ladonna Anderson MD 04/02/2024 04:15 PM EDT Dictated By: Ladonna Anderson Signed By: <Electronically signed by Ladonna Anderson in OV> 04/02/24 1615 DD/ 1524 TD/TT: 03/31/24 1546 It Telecom Technician: Assessment & Plan Assessment & Plan (1) Ovarian cyst: Code(s): N83.209 - Unspecified ovarian cyst, unspecified side Category: Medical Qualifiers: Laterality: right Qualified Code(s): N83.201 - Unspecified ovarian cyst, right side (2) Encounter to discuss test results: Code(s): Z71.2 - Person consulting for explanation of examination or test findings (3) control counseling: Code(s): Z30.09 - Encounter for other general counseling and advice on contraception Plan Discussed: Ultrasound findings include ovarian cyst on the right side possible endometrioma. Possible MRI if needed in the future. Use of anatomical model reviewed in discussion of ultrasound findings today. Plan is to repeat ultrasound 6-8 weeks. You reviewed pelvic warnings of when to call for increased pain. Reviewed options for cycle/ control to include Mirena IUD and Nexplanon device. Mirena booklet dispensed she will review and follow up after the ultrasound to discuss her options, otherwise she would like to continue with Chilmark for now, refills sent to pharmacy 90 day supply. Advised to call sooner if there is any concerns. All of her questions and concerns were addressed to the best of my ability and shared decision making. She is agreeable to the plan of care. This note is constructed using voice recognition software. While every effort has been made to ensure accuracy, die casting machine setter errors may have been included. Orders: Orders US pelvic and transvaginal 05/25/24 N83.209 - Unspecified ovarian cyst, unspecified side Medications: Refilled norethindrone (contraceptive) (Jessica) 0.35 mg PO DAILY 84 tabs 0RF Coding Level of Care Code Est Pt Level 3 (27321) Diagnoses Cyst of right ovary N83.201 Laterality: right Encounter to discuss test results Z71.2 control counseling Z30.09
[2024-04-24 13:54] VITALS: BP 110/60
== END 2024-04-24 14:19 | disposition home or self-care (01) ==
PROVIDERS: PCP Internal Medicine; Visit Provider Advanced Practice Midwife
DX: N83.201 Unspecified ovarian cyst, right side (principal)
CPT/HCPCS: 99213

== ENCOUNTER → 2024-04-24 13:49 | Outpatient (BNVA) | payer BC, SELFPAY | PROVIDERS: PCP Internal Medicine; Visit Provider Advanced Practice Midwife ==

== ENCOUNTER 2024-05-25 16:11 | Outpatient (REF) | payer BC, SELFPAY | END 2024-05-25 16:12 | disposition home or self-care (01) | LOC: HO.US 16:11 | PROVIDERS: PCP Internal Medicine; Visit Provider Advanced Practice Midwife | DX: N83.209 Unspecified ovarian cyst, unspecified side (principal) | CPT/HCPCS: 76830; 76856 ==

== ENCOUNTER 2024-06-17 14:28 | Outpatient (AMB) | payer OTHER, SELFPAY ==
--- NOTE | 2024-06-17 14:33 | A.OFFVIS_ITS ---
VS Expanded 06/17/24 14:34 Height 5 ft 5 in Weight 242 lb 15.19 oz BMI 40.4 Intake Visit Reasons: Obesity/Confirmed Allergies medroxyprogesterone [From Depo-Provera] Allergy (Unknown, Verified 04/24/24 14:18) Hives Nutrition Presentation Details: Pt presents for MNT f/u for obesity Pt reports engaging in physical activity walking 30-40 minutes (aerobic), 3 times week Working on not skipping meals and choosing higher fiber foods (salads, whole grains ) BS Monitoring Most Recent Diabetes Results: Cholesterol 132 mg/dL (<200) 03/31/24 HDL Cholesterol 36 mg/dL (>40) L 03/31/24 Triglycerides 48 mg/dL (<150) 03/31/24 Creatinine 0.68 mg/dL (0.5-1.4) 03/31/24 Blood Urea Nitrogen 14 mg/dL (9-16) 03/31/24 Sodium 141 mmol/L (135-145) 03/31/24 Potassium 3.9 mmol/L (3.3-5.1) 03/31/24 Chloride 110 mmol/L (96-108) H 03/31/24 Carbon Dioxide 25 mmol/L (22-29) 03/31/24 Calcium 8.9 mg/dL (8.4-10.2) 03/31/24 AST 13 U/L (5-31) 03/31/24 ALT 14 U/L (0-31) 03/31/24 Total Protein 7.1 g/dL (6.5-8.0) 03/31/24 Albumin 4.1 g/dL (3.5-5.0) 03/31/24 [facility] Medical History Physical exam Left wrist sprain Hair loss Encounter to discuss test results Pelvic cramping Encounter for annual routine gynecological examination Local reaction to COVID-19 vaccine Fatigue Morbid obesity Rash Dizziness Cough Migraine with aura CHRISTO (generalized anxiety disorder) Severe major depression Depression CKD (chronic kidney disease) Asthma Surgical History No history of previous surgery Family History Mother Heart attack Father Deaf Family/Other Substance use disorder Mental health disorder Social History Housing: House Housing Other:: living with parents Alcohol intake: current Alcohol intake frequency: holidays/special occasions only Alcohol type: wine and hard liquor Patient Tobacco Use Status: Never used Tobacco e-Cigarette/Vaping Use: Never Used Second Hand Smoke Exposure: No Substance Use Type: Marijuana service: No Current occupational status: employed Current occupational exposures/hazards: No Sexual orientation: Bisexual Gender identity: Female Cognitive needs: No Hearing needs: No Vision needs: No Female Reproductive History Menstrual Age of Menarche: 11 Assessment & Plan Assessment & Plan (1) Morbid obesity due to excess calories: Code(s): E66.01 - Morbid (severe) obesity due to excess calories Category: Medical Plan: Educate Pt on [address] meal plan ? Used wt : 120kg/BMI 43 (03/2022), 115 kg (04/2023), 118 kg (), 110kg/BMI 40.4 (06/30) Est kcal as per MSJ: 2350 (40% carb, 30% fat/prot) Est fluid needs: 7545-4245 ml/d (25-35 ml/kg bw) Rec fiber: increase to 8-10 g per day and gradually increase to 25 g/d or as tolerated Rec Na: < 2000 mg /d Educate patient on: (R= Reviewed, V = verbalizes understanding N/R= Needs review N/A= not applicable) * Food sources of carbohydrates and serving adequate serving sizes : R * Difference between complex carbohydrates and simple carbohydrates, role of fiber: R * Differences between fats (MUFA/PUFA/saturated fats, trans fats) and food sources of various fats: R, V * Food sources of sodium and salt and healthy modifications for heart health and kidney health: R * Vitamins and minerals: R, discussed Vit D sources of foods, b vit, iron * How to interpret food labels: R, V * Healthy Plate method concept: R * Physical activity: benefits and precaution: R * Mindful eating, lowering high calorie foods R, V * including fruit in diet , R Patient Instructions: Continue engaging in physical activity 60 min , 3 x/wk Keep hydrated by choosing water with meals/snacks Include fish at least 1 x/wk Coding Level of Care Code Nutr Indiv Subseq (60569) Diagnoses Morbid obesity due to excess calories E66.01
[2024-06-17 14:34] VITALS: BMI 40.4
--- OUTSIDE RECORDS SUMMARY | 2024-06-18 02:51 | XMS_ITS | Data Portability ---
Author Organization [facility] Address [address] [place] [address] Assessment No assessment recorded. Plan of Treatment Reminders Order Date Submit Date Provider Last Modified By Organization Details Last Modified Time Details Appointments None recorded. Lab rapid strep group A, throat 2022 023 fijaz3 _[facility], [address] [place] [address], [id number], 18:16:37 streptococc us group A, culture, throat 2022 023 [place] [facility], [address] [place] [address], [id number], 06:08:07 Referral None recorded. Procedures None recorded. Surgeries None recorded. Imaging None recorded. Medication Orders amoxicillin 875 mg tablet 2022 023 [id number], [address] [facility], [place], [address], 18:17:26 Patient TargetsNo targets recorded. Patient Instructions Encounter Date Encounter Id Patient Instructions Last Modified By Organization Details Last Modified Time 12/19/2022 [id number] sore throat: car e instructions Not available 12/19/2022 18:16:54 Discussed potential complications and intervention options with the patient during this visit. Patient was instructed to increase room humidity and eat soft bland foods. Raising the head of the bed, lozenges, and saline nasal spray were also recommended. Patient may take ibuprofen or acetaminophen as needed for pain control. If the issue does not improve in 24-48 hours, patient should return to the clinic for follow-up. You have been prescribed an antibiotic for your bacterial illness. While antibiotics are sometimes necessary, they can have a negative impact upon the healthy bacteria within your body. This can result in diarrhea/loose stools and yeast infections. By taking probiotics during the course of your prescription, you can lessen the probability of these undesirable side effects. Probiotics can be purchased pppa-ikr-pgalkez at your pharmacy in the form of capsules or gummies. They are also found naturally in yogurt with live cultures. Mix salt into a quarter-glass of warm water and stir until no more salt will dissolve. Gargle and spit out the salt water mixture one mouthful at a time until the glass is empty. Repeat 4 times daily. Hand hygiene is a nicholson measure for preventing spread to others, especially after coughing or sneezing and before preparing foods or eating, and we remind all patients of its importance. Please discard of your current tooth brush and get a new one after being on the antibiotic for 3-4 days to prevent reinfection. You are considered contagious until you have the antibiotic for 24 hours. We have sent out for lab results, typically take 3-5 days to return. Not available 12/19/2022 18:16:36 Reason for Referral None Reported. Results Created Date Observation Date Name Description Value Unit Range Abnormal Flag Note LastModifiedBy Organization Detail LastModifiedTime 12/20/1912/22/2022 BETA STREP GP A CULTU RE beta strep gp A culture NEGATI VE Refer ence Range : Negat valentino Not Available [facility] ([facility]) [address] [facility] [address], [place], [address], 12/22/2022 06:08:07 12/20/1912/19/2022 rapid strep group A, throa t Unknown Analyte Normal = Negati ve Not Available [facility] [address] [place] [address], [phone], 12/19/2022 17:59:21 12/20/1912/19/2022 rapid strep group A, throa t Unknown Analyte negati ve Not Available _nataliia muniz [address], [address], 12/19/2022 17:59:21 Result Notes None recorded. Problems Name Problem SNOMED Code Status Onset Date Resolution Date Notes Provider Name and Address Organization Details Recorded Time Asthma 180610615 Active 023 RONAK Singleton opal PA - [facility] 3 17:57:43 Polycystic ovary syndrome 988402954 Active 023 RONAK HASEEB joseph PA - [facility] 3 17:58:12 Problem Notes None recorded. Medical Equipment None Reported. Allergies No known drug allergies Medications Name Sig Start Date Stop Date Status Note LastModified by Organization Details LastModified Time amoxicillin 875 mg tablet Take 1 tablet every 12 hours by oral route with meals for 10 days. active Not Available Not Available No t Available norethindrone (contraceptive) 0.35 mg tablet TAKE 1 TABLET BY MOUTH EVERY DAY active Not Available Not Available No t Available Vitamin D3 active Not Available Not Av ailable Not Available cholecalciferol (vitamin D3) 50 mcg (2,000 unit) capsule TAKE 1 CAPSULE BY MOUTH EVERY DAY active Not Available Not Available No t Available Vitals Date Recorded Body height Body mass index (BMI) Body weight Respiratory rate Heart rate Oxygen saturation Oxygen saturation in Arterial blood by Pulse oximetry Body temperature Systolic blood pressure Diastolic blood pressure Provider Name and Address Organization Details Last Updated DateTime 3 165.1 cm 41.6 kg/m2 374145. 09 g 18 /min 82 /min 98 % 98 % 98.7 [degF] 106 mm[Hg] 72 mm[Hg] RONAK FAITHISAK Singleton PA - [facility] 3 18:01:14 Social History Question Answer Notes LastModified by Organizat ion Details LastModified Time Tobacco Smoking Status Never Smoker RONAK WHITLEY opal PA - [facility] 12/19/2022 17:58:49 What Is Your Level Of Alcohol Consumption? Occasional Information not available 12/19/2022 Which Illicit Or Recreational Drugs Have You Used? Marijuana Information not available 12/19/2022 What Is Your Water Source? City Information not available 12/19/2022 What Is Your Heat Source? Other Information not available 12/19/2022 Have You Had Direct Contact, Or Contact During Intimacy, With Monkeypox Rash, Scabs, Or Body Fluids From A Person With Monkeypox? No Information not available 12/19/2022 Do You Use Any Illicit Or Recreational Drugs? Yes Information not available 12/19/2022 Have You Recently Traveled Abroad? No Information not available 12/19/2022 Do You Or Have You Ever Used Any Other Forms Of Tobacco Or Nicotine? No Information not available 12/19/2022 Sex: Unknown Functional Status None recorded. Mental Status None recorded. Family History Relationship Description Onset Age of this Age Resolved Age Notes LastModified by Organization Details LastModified Time Mother Diabetes mellitus Not available 17:58:31 Medical History No medical history recorded. Gynecological History Statement/Question Response Date of LMP 12/09/2022 Is there any chance of ? No Obstetrics History GPAL:G 0 P 0 0 0 0 Past Encounters Encounter ID Performer Location Encounter Start Date Encounter Closed Date Diagnosis/Indication Diagnosis SNOMED-CT Code Diagnosis ICD10 Code [id number] [address] [address] 10/10/2020 12:21:24 10/10/2020 12:54:59 [id number] Mohsen Us [facility] [address] [place] [address] 12/19/2022 17:41:33 12/19/2022 18:23:00 Streptococcal sore throat 82560118 J02.0 Health Concerns Section Related Observation LastModified by Organization Detai ls LastModified Time None Recorded Concern Status LastModified by Organization Details LastModified Time None Recorded Advance Directives Directive None Recorded Payers Encounter Date Sequence Insurance Name Policy Number Policy Coleman Covered Member ID Coleman Member ID Guarantor Name 10/10/2020 1 [place] [id number] Stuart Cornejo [id number] JEFF Cornejo 12/19/2022 1 [place] [id number] Stuart Cornejo [id number] JEFF Cornejo Notes Date Note Type Note Provider Name and Address Organization Details Recorded Time text/html Sore throatReported bypatient.Source of patient informationInformation obtained from patient; Patient arrived at Urgent Care ambulatory; learning styles: auditory Location:throat Severity:mild Quality:sharp; burning Onset/Timin days Associated Symptoms:no sputum production; no shortness of breath; no wheezing; no vomiting; no nausea;sore throat;hoarseness;coughing; sinus pain/ congestion Context:no foreign travel; non-smoker;sick contact Modifying Factors:exposed to Strep non household Mohsen DEBORA Us [address] [place], [address], PA - [facility] 12/19/2022 18:18:03 OBGyn Episode No OBEpisode recorded.
== END 2024-06-17 15:04 | disposition home or self-care (01) ==
PROVIDERS: PCP Internal Medicine; Visit Provider Dietitian, Registered
DX: E66.01 Morbid (severe) obesity due to excess calories (principal)

== ENCOUNTER → 2024-06-17 14:28 | Outpatient (BNVA) | payer OTHER, SELFPAY | PROVIDERS: PCP Internal Medicine; Visit Provider Dietitian, Registered | DX: E66.01 Morbid (severe) obesity due to excess calories (principal); Z68.41 Body mass index [BMI] 40.0-44.9, adult; Z71.3 Dietary counseling and surveillance | CPT/HCPCS: 97803 ==

== ENCOUNTER 2024-08-06 14:37 | Outpatient (REF) | payer BC, SELFPAY ==
[2024-08-06 17:59] LABS: Carcinoembryonic Antigen < 1.73 ng/mL
--- OUTSIDE RECORDS SUMMARY | 2024-08-06 19:21 | XMS_ITS | Encounter Summary ---
Author Organization [facility], Address [address] [place] [address] Phone Care Team Providers Care Stitch Marker Name Role Phone Cherie uLna MD Primary Care Provider [phone] Encounter Details Date Type Department Care Team (Late Contact Info) Description 06/01/2024 Orders Only [facility] [address] [place] [phone] Jeanine Arguello PA [address] [place] [phone] Hematuria, not otherwise specified; Vitamin D deficiency, not otherwise specified Social History Tobacco Use Types Packs/Day Years Used Date Smoking Tobacco: Never Alcohol Use Standard Drinks/Week Comments No 0 (1 standard drink = 0.6 oz pur e alcohol) Comments Unknown Sex and Gender Information Value Date Recorded Sex Assigned at Female 06/10/2023 5:22 PM EST Legal Sex Female 4:35 PM EST Gender Identity Choose not to disclose 5:22 PM EST Sexual Orientation Bisexual 06/10/2023 5: 22 PM EST Sexual Orientation Something else 06/10/2023 5: 22 PM EST documented as of this encounter Plan of Treatment Upcoming Encounters Date Type Department Care Team (Late Contact Info) Description 08/11/2024 4:00 PM EST Office Visit [facility] [address] [place] [address] Jose Miguel Barrios MD [address] [place] [address] documented as of this encounter Visit Diagnoses Diagnosis Hematuria, not otherwise specified Vitamin D deficiency, not otherwise specified documented in this encounter Care Teams Stitch Marker Relationship Specialty Start Date End Date Cherie Luna MD [address] [place], [place] PCP - General Internal Medicine 10/10/20 documented as of this encounter
--- OUTSIDE RECORDS SUMMARY | 2024-08-06 19:21 | XMS_ITS | Encounter Summary ---
Author Organization [facility], Address [address] [place] [address] Phone Care Team Providers Care Nursing Care Attendant Name Role Phone Cherie Luna MD Primary Care Provider Encounter Details Date Type Department Care Team (Late Contact Info) Description 10/09/2021 Documentation Only [facility] [address] [place] [phone] Jose Miguel Barrios MD [address] [place] [address] [place] [phone] Social History Tobacco Use Types Packs/Day Years [...] Visit [facility], [address] [place] [phone] Jose Miguel Barrios MD [address] [place] [address] documented as of this encounter Visit Diagnoses Not on filedocumented in this encounter Care Teams Nursing Care Attendant Relationship Specialty Start Date End Date Cherie Luna MD [address] [facility] [place] [address] [place], [place] PCP - General Internal Medicine 10/10/20 documented as of this encounter
--- OUTSIDE RECORDS SUMMARY | 2024-08-06 19:21 | XMS_ITS | Clinical Summary ---
Author Organization [facility] Address [address] [place] [address] Phone Care Team Providers Care Electric Organ Checker Name Role Phone Cherie Luna MD Primary Care Provider [phone] Allergies No known active allergies Medications albuterol HFA (ProAir HFA) 108 (90 Base) MCG/ACT inhaler Acti ve cholecalciferol (VITAMIN D-3) 50 MCG (2000 UT) capsule Take by mouth 1 (one) time each day 3 Active cyclobenzaprine (FLEXERIL) 5 MG tablet PLEASE SEE ATTACHED FOR DETAILED DIRECTIONS 3 Active naproxen (NAPROSYN) 500 MG tablet TAKE 1 TABLET BY MOUTH TWICE A DAY NEEDED FOR BACK PAIN 3 Active norethindrone (MICRONOR) 0.35 MG tablet Take 1 tablet by mouth 1 (one) time each day 3 Active Active Problems Problem Noted Date Diagnosed Date Vitamin D deficiency 06/11/2023 Chronic kidney disease stage 3 10/06/2019 Recurrent and persistent hem aturia with minimal change lesion 10/06/2019 Hematuria 03/23/2014 Encounters Date Type Department Care Team Description 06/01/2024 Orders Only [facility] [address] [place] [address] Jeanine Arguello PA Hematuria, not otherwise specified; Vitamin D deficiency, not otherwise specified from Last 3 Months Family History Medical History Relation Comments Cancer Mother grandmother/edith n tumor Heart disease Mother Hypertension Mother Relation Status Comments Father Alive Mother Alive Social History Tobacco Use Types Packs/Day Years Used Date Smoking Tobacco: Never Tobacco Cessation:Counseling Given: Not Answered Alcohol Use Standard Drinks/Week Comments No 0 [...] Something else 06/10/2023 5: 22 PM EST Last Filed Vital Signs Vital Sign Reading Time Taken Comments Blood Pressure 118/70 06/12/2023 3:27 PM EST Pulse - - Temperature - - Respiratory Rate - - Oxygen Saturation - - Inhaled Oxygen Concentration - - Weight 115 kg (253 lb 12.8 oz) 06/12/2023 3:27 P M EST Height 165.1 cm (5' 5 ) 06/12/2023 3:27 PM EST Body Mass Index 42.23 06/12/2023 3:27 PM EST Plan of Treatment Upcoming Encounters Date Type Department Care Team (Late st Contact Info) Description 08/11/2024 4:00 PM EST Office Visit [facility] [address] [place] [phone] Jose Miguel Barrios MD [address] [place] [address] [place] [phone] Health Maintenance Due Date Last Done Comments Pneumococcal Vaccine: Pediat rics (0 to 5 Years) and At-Risk Patients (6 to 64 Years) (1 of 2 - PCV) 2005 Hepatitis B Vaccine (1 of 3 - 19+ 3-dose series) 07/18 Influenza Vaccine (#1) 2024 Care Teams Electric Organ Checker Relationship Specialty Start Date End Date Cherie Luna MD [address] [place], [place] PCP - General Internal Medicine 10/10/20
--- OUTSIDE RECORDS SUMMARY | 2024-08-06 19:21 | XMS_ITS | Encounter Summary ---
Author Organization [facility], Address [address] [place] [address] Phone Care Team Providers Care Business Support Specialist Name Role Phone Cherie Luna MD Primary Care Provider [phone] Encounter Details Date Type Department Care Team (Late Contact Info) Description 04/18/2023 Documentation Only [facility], [address] [place] [phone] Jeanine Arguello PA [address] [place] [phone] Social History Tobacco Use Types Packs/Day Years [...] Visit [facility], [address] [place] [phone] Jose Miguel Barrios MD [address] [place] [place] [address] documented as of this encounter Visit Diagnoses Not on filedocumented in this encounter Care Teams Business Support Specialist Relationship Specialty Start Date End Date Cherie Luna MD [address] [facility] [address] [place], [place] PCP - General Internal Medicine 10/10/20 documented as of this encounter
[2024-08-08 08:24] LABS: Carbohydrate Antigen 19-9 7 U/mL (<34)
[2024-08-08 08:54] LABS: CA-125 8 U/mL (<35)
== END 2024-08-06 14:38 | disposition home or self-care (01) ==
LOC: HO.LAB 14:37
PROVIDERS: PCP Internal Medicine; Visit Provider Advanced Practice Midwife
DX: N83.299 Other ovarian cyst, unspecified side (principal)
CPT/HCPCS: 36415; 82378; 86301; 86304

== ENCOUNTER → 2024-08-17 15:44 | Outpatient (BNV) | payer BC, SELFPAY | PROVIDERS: PCP Internal Medicine; Visit Provider Radiology Diagnostic Radiology | DX: N83.201 Unspecified ovarian cyst, right side (principal) | CPT/HCPCS: 72197 ==

== ENCOUNTER 2024-08-17 15:46 | Outpatient (REF) | payer BC, SELFPAY ==
[2024-08-17] MEDS: gadobutroL 10 ML VIAL IVPUSH (16:46)
== END 2024-08-17 15:47 | disposition home or self-care (01) ==
LOC: HO.MRI 15:46
PROVIDERS: PCP Internal Medicine; Visit Provider Advanced Practice Midwife
DX: N83.299 Other ovarian cyst, unspecified side (principal)
CPT/HCPCS: 72197; A9585

== ENCOUNTER 2024-08-19 08:05 | Outpatient (AMB) | payer BC, SELFPAY ==
--- NOTE | 2024-08-19 08:08 | MHC.OFFVIS ---
Intake Visit Reasons: MRI follow up Landing Signal Officer: Landing Signal Officer Present Allergies medroxyprogesterone [From Depo-Provera] Allergy (Unknown, Verified 08/19/24 08:09) Hives Is last menstrual period known: Yes HPI Comments Details: Patient is here today for a follow up MRI results due to history of complex ovarian cyst. Recent tumor markers x3 were all negative baseline. She currently is a [place] progesterone only user and reports her withdrawal bleed occurs at different timing of the cycle. UPT today is negative. [facility] Medical History (Updated 08/06/24 @ 15:31 by Mis Sanchez CNM) Complex ovarian cyst Physical exam Left wrist sprain Hair loss Encounter to discuss test results Pelvic cramping Encounter for annual routine gynecological examination Local reaction to COVID-19 vaccine Fatigue Morbid obesity Rash Dizziness Cough Migraine with aura CHRISTO (generalized anxiety disorder) Severe major depression Depression CKD (chronic kidney disease) Asthma Surgical History No history of previous surgery Family History Mother Heart attack Father Deaf Family/Other Substance use disorder Mental health disorder Social History Housing: House Housing Other:: living with parents Alcohol intake: current Alcohol intake frequency: holidays/special occasions only Alcohol type: wine and hard liquor Patient Tobacco Use Status: Never used Tobacco e-Cigarette/Vaping Use: Never Used Second Hand Smoke Exposure: No Substance Use Type: Marijuana service: No Current occupational status: employed Current occupational exposures/hazards: No Sexual orientation: Bisexual Gender identity: Female Cognitive needs: No Hearing needs: No Vision needs: No Female Reproductive History Menstrual Age of Menarche: 11 Review of Systems Const All systems reviewed & are unremarkable except as noted in HPI and below Endo Reports no additional complaints Physical Exam Const General: cooperative, healthy appearing and no acute distress Psych Appearance: well kempt Attitude: cooperative Thought process: Normal thought process present Results AMB Test Urine AMB Test Urine Negative Last Edit by PACHECO Cha on 08/19/24 08:37 Results Reviewed Results Reviewed: [address] [address] Magnetic Resonance Report Signed Patient: Alison Cornejo#: [id number] : 2000 Acct:[id number] Age/Sex: 24 / F ADM Date: 08/17/24 Loc: HO.MRI Attending Dr: Mis Sanchez CNM Ordering Physician: Mis Sanchez CNM Date of Service: 08/17/24 Procedure(s): MR pelvis wo/w con Accession Number(s): [id number] cc: Mis Sanchez CNM; Cherie Luna MD~ EXAMINATION: MR PELVIS WITHOUT THEN WITH IV CONTRAST HISTORY: N83.299 - Other ovarian cyst, unspecified side. TECHNIQUE: Axial T1 and fat-suppressed T2, and sagittal and coronal T1 and T2 weighted MR images of the pelvis were obtained. Subsequently fat-suppressed T1-weighted images were obtained before and after the intravenous administration of 10 mm Gadavist. COMPARISON: Correlation is made with a pelvic ultrasound dated 05/25/2024. FINDINGS: The uterus is unremarkable in appearance. No fibroids are seen. The junctional zone is not thickened. The cervix is unremarkable. The right ovary measures 5.9 x 2.5 x 3.0 cm and demonstrates multiple follicles. In addition, there is a single 1.4 cm structure within the ovary which is T1 hyperintense and demonstrates T2 shading. There is a possible tiny T2 dark spot within the lesion. This likely corresponds to the smaller of the complex lesions seen on the prior ultrasound. There is an additional heterogeneous lesion demonstrating multiple internal septations measuring approximately 2.4 x 1.5 x 1.9 cm, which appears to correspond to the larger lesion noted on ultrasound. This demonstrates heterogeneous enhancement with enhancement of septations. There are no associated blood products. The left ovary is unremarkable in appearance measuring approximately 2.9 x 1.5 x 3.0 cm. There is a small amount of free fluid in the cul-de-sac. There is no pelvic lymphadenopathy. MR/MR pelvis wo/w con IMPRESSION: 1. Complex 2.4 x 1.5 x 1.9 cm multiseptated lesion in the right ovary demonstrating heterogeneous enhancement. This corresponds to the larger lesion on ultrasound. Neoplasm is not excluded. If laparoscopy is not planned, close follow-up is recommended. 2. 1.4 cm right ovarian hemorrhagic cyst versus endometrioma corresponding to the smaller lesion seen on ultrasound. Electronically signed by: Maykel Petit MD 08/18/2024 07:43 AM EST Dictated By: Maykel Petit MD Signed By: <Electronically signed by Maykel Petit MD in OV> 08/18/24 0743 DD/ 1608 TD/TT: 08/17/24 1640 Emissions Engineer: Assessment & Plan Assessment & Plan (1) Complex ovarian cyst: Code(s): N83.299 - Other ovarian cyst, unspecified side Category: Medical Plan Discussed: MRI findings-FINDINGS: The uterus is unremarkable in appearance. No fibroids are seen. The junctional zone is not thickened. The cervix is unremarkable. The right ovary measures 5.9 x 2.5 x 3.0 cm and demonstrates multiple follicles. In addition, there is a single 1.4 cm structure within the ovary which is T1 hyperintense and demonstrates T2 shading. There is a possible tiny T2 dark spot within the lesion. This likely corresponds to the smaller of the complex lesions seen on the prior ultrasound. There is an additional heterogeneous lesion demonstrating multiple internal septations measuring approximately 2.4 x 1.5 x 1.9 cm, which appears to correspond to the larger lesion noted on ultrasound. This demonstrates heterogeneous enhancement with enhancement of septations. There are no associated blood products. The left ovary is unremarkable in appearance measuring approximately 2.9 x 1.5 x 3.0 cm. There is a small amount of free fluid in the cul-de-sac. There is no pelvic lymphadenopathy. Counseled regarding findings of: Complex ovarian cyst, which is often benign, and most resolve on their own overtime. Some develop into premalignant or malignant tumors. Limitations of testing for diagnostic purposes. referral to [facility] indicated for possible surgical consult. Referral placed to [facility]. All of her questions and concerns were addressed to the best of my ability and shared decision making. She is agreeable to the plan of care. This note is constructed using voice recognition software. While every effort has been made to ensure accuracy, field marketing specialist errors may have been included. Orders: Orders AMB HCG Urine Test Today Z32.02 - Encounter for test, result negative Referrals Gynecologic Oncology Referral N83.299 - Other ovarian cyst, unspecified side Coding Level of Care Code Est Pt Level 3 (75248) Diagnoses Complex ovarian cyst N83.299
--- OUTSIDE RECORDS SUMMARY | 2024-08-19 08:11 | XMS_ITS | Clinical Summary ---
Author Organization [facility], Address [address] [place] [address] Phone Care Team Providers Care Cotton Sampler Name Role Phone Cherie Luna MD Primary Care Provider [phone] Allergies No known active allergies Medications albuterol HFA (ProAir HFA) 108 (90 Base) MCG/ACT inhaler Acti ve cholecalciferol (VITAMIN D-3) 50 MCG (1999) capsule Take by mouth 1 (one) time [...] Encounters Date Type Department Care Team Description 08/11/2024 4:00 PM EST Office Visit [facility], [address] [place] [phone] Jose Miguel Barrios MD Recurrent and persistent hematuria with minimal change lesion (Primary Dx) 06/01/2024 Orders Only [facility] [address] [place] [phone] Jeanine Arguello PA Hematuria, not otherwise specified; Vitamin D deficiency, not otherwise specified from Last 3 Months Family History Medical History Relation Comments Cancer Mother grandmother/brai n tumor Heart disease Mother Hypertension Mother [...] Care Team (Late st Contact Info) Description 08/10/2025 4:00 PM EST Office Visit [facility], [address] [place] [address] Jose Miguel Barrios MD [address] [place] [address] [place] [phone] Health Maintenance Due Date Last Done Comments Pneumococcal Vaccine: Pediat rics (0 to 5 Years) and At-Risk Patients (6 to 64 Years) (1 of 2 - PCV) 2005 Hepatitis B Vaccine (1 of 3 - 19+ 3-dose series) 07/18 Influenza Vaccine (#1) 2024 Insurance [facility] Care Teams Cotton Sampler Relationship Specialty Start Date End Date Cherie Luna MD [address] [place], [place] PCP - General Internal Medicine 10/10/20
--- OUTSIDE RECORDS SUMMARY | 2024-08-19 08:11 | XMS_ITS | Encounter Summary ---
Author Organization [facility] Address [address] [place] [address] Phone Care Team Providers Care Stonemason Apprentice Name Role Phone Cherie Luna MD Primary Care Provider [phone] Encounter Details Date Type Department Care Team (Late st Contact Info) Description 06/01/2024 Orders Only [facility] [address] [place] [address] Jeanine Arguello PA Hematuria, not otherwise [...] Visit [facility] [address] [place] [phone] Jose Miguel Barrios MD [address] [facility] [place] [address] documented as of this encounter Visit Diagnoses Diagnosis Hematuria, not otherwise specified Vitamin D deficiency, not otherwise specified documented in this encounter Care Teams Stonemason Apprentice Relationship Specialty Start Date End Date Cherie Luna MD [address] [place] [address] [address] [place] [address] PCP - General Internal Medicine 10/10/20 documented as of this encounter
--- OUTSIDE RECORDS SUMMARY | 2024-08-19 08:12 | XMS_ITS | Encounter Summary ---
Author Organization [facility] Address [address] [place] [address] Phone Care Team Providers Care Drawing Tender Name Role Phone Cherie Luna MD Primary Care Provider [phone] Encounter Details Date Type Department Care Team (Late st Contact Info) Description 04/18/2023 Documentation Only [facility] [address] [place] [address] Jeanine Arguello PA Social History Tobacco Use Types Packs/Day Years [...] Visit [facility] [address] [place] [address] Jose Miguel Barrios MD [address] [place] [phone] documented as of this encounter Visit Diagnoses Not on filedocumented in this encounter Care Teams Drawing Tender Relationship Specialty Start Date End Date Cherie Luna MD [address] PCP - General Internal Medicine 10/10/20 documented as of this encounter
--- OUTSIDE RECORDS SUMMARY | 2024-08-19 08:12 | XMS_ITS | Encounter Summary ---
Author Organization [facility] Address [address] [place] [address] Phone Care Team Providers Care Rotary Kiln Operator Name Role Phone Cherie Luna MD Primary Care Provider [phone] Encounter Details Date Type Department Care Team (Late st Contact Info) Description 08/11/2024 4:00 PM EST Office Visit [facility] [address] [place] [phone] Jose Miguel Barrios MD [address] [place] [address] [place] [phone] Recurrent and persistent hematuria with minimal change lesion (Primary Dx) Social History Tobacco Use Types Packs/Day Years [...] PM EST documented as of this encounter Progress Notes * Jose Miguel Barrios MD - 08/11/2024 4:00 PM EST Images from the original note were not included. PATIENT: Alison Cornejo : 2000 ENCOUNTER: 08/11/2024 PCP: Cherie Luna MD HPI: Alison Cornejo is a 24 y.o. year old adult with a history of Microhematuria who has been doing remarkably well in the last few years most recently was told to have ovarian cyst she is now on norethindrone, denies any recent acute hospitalizations or any events she is here for routine follow-up. ROS: Constitutional: No fever. Respiratory: No shortness of breath. Cardiovascular: No chest pain. Gastrointestinal: No abdominal pain, nausea or vomiting. Genitourinary: No hematuria. All other systems reviewed and are negative. PAST MEDICAL HISTORY: Patient Active Problem List Diagnosis Date Noted Vitamin D deficiency 06/11/2023 Chronic kidney disease stage 3 (HCC) 10/06/2019 Recurrent and persistent hematuria with minimal change lesion 10/06/2019 Hematuria 03/23/2014 PAST SURGICAL HISTORY: No past surgical history on file. SOCIAL HISTORY: Social History Tobacco Use Smoking status: Never Smokeless tobacco: Not on file Substance Use Topics Alcohol use: No FAMILY HISTORY: Family History Problem Relation Age of Onset Cancer Mother grandmother/brain tumor Hypertension Mother Heart disease Mother MEDICATIONS: Outpatient Encounter Medications as of 08/11/2024 Medication Sig Dispense Refill albuterol HFA (ProAir HFA) 108 (90 Base) MCG/ACT inhaler cholecalciferol (VITAMIN D-3) 50 MCG (2000 UT) capsule Take by mouth 1 (one) time each day cyclobenzaprine (FLEXERIL) 5 MG tablet PLEASE SEE ATTACHED FOR DETAILED DIRECTIONS naproxen (NAPROSYN) 500 MG tablet TAKE 1 TABLET BY MOUTH TWICE A DAY NEEDED FOR BACK PAIN norethindrone (MICRONOR) 0.35 MG tablet Take 1 tablet by mouth 1 (one) time each day No facility-administered encounter medications on file as of 08/11/2024. MEDICATION REVIEW: I have reviewed the patient's current medications. ALLERGIES: has No Known Allergies. PHYSICAL EXAM: BP 108/62 Constitutional: No apparent distress Extremities: Edema None LABORATORY REVIEW: I have reviewed the labs noted above as well as in the chart, in CIS and in Care Everywhere. DOCUMENTATION REVIEW: I have reviewed the applicable outside notes located in the chart, in CIS and in Care Everywhere. ASSESSMENT: 1. Recurrent and persistent hematuria with minimal change lesion Alison is a very pleasant 27-year-old female with known history of microhematuria in the past. 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 She has excellent blood pressures she does have low vitamin D levels which we discussed today she will benefit from vitamin D supplementation. 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 Orders Placed This Encounter Urinalysis with microscopic Protein, Total, Random Urine w/Creatinine (Protein/Creat Ratio) documented in this encounter Plan of Treatment Upcoming Encounters Date Type Department Care Team (Late st Contact Info) Description 08/10/2025 4:00 PM EST Office Visit [facility] [place], [address] [place] [phone] Jose Miguel Barrios MD [address] [facility] [address] [place] [phone] Scheduled Orders Name Type Priority Associated Diagnoses Orde r Schedule Urinalysis with microscopic Lab Routine Recurrent and persistent hematuria with minimal change lesion Expected: 08/11/2024, Expires: 09/08/2025 Protein, Total, Random Urine w/Creatinine (Protein/Creat Ratio) Lab Routine Recurrent and persistent hematuria with minimal change lesion Expected: 08/11/2024, Expires: 09/08/2025 documented as of this encounter Visit Diagnoses Diagnosis Recurrent and persistent hematuria with minimal change lesion- Primary documented in this encounter Care Teams Rotary Kiln Operator Relationship Specialty Start Date End Date Cherie Luna MD [address] [place] [address] PCP - General Internal Medicine 10/10/20 documented as of this encounter
--- OUTSIDE RECORDS SUMMARY | 2024-08-19 08:12 | XMS_ITS | Data Portability ---
Author Organization [facility] Address [address] [place] [address] Assessment No assessment recorded. Plan of Treatment Reminders Order Date Submit Date Provider Last Modified By Organization Details Last Modified Time Details Appointments None recorded. Lab rapid strep group A, throat 2022 023 fijaz3 [facility], [address] [place] [address], [id number], 18:16:37 streptococc us group A, culture, throat 2022 023 [place] [facility], [address] [place] [address], [address], 06:08:07 Referral None recorded. Procedures None recorded. Surgeries None recorded. Imaging None recorded. Medication Orders amoxicillin 875 mg tablet 2022 023 [id number], [address] [facility], [place], [address], 18:17:26 Patient TargetsNo targets recorded. Patient Instructions Encounter Date Encounter Id Patient Instructions Last Modified By Organization Details Last Modified Time 12/19/2022 [id number] sore throat: car e instructions Not available [...] undesirable side effects. Probiotics can be purchased [id number] at your pharmacy in the form of [...] Range : Negat valentino Not Available [facility] ([facility]) [address] [facility], [place], [address], 12/22/2022 06:08:07 12/20/1912/19/2022 rapid strep group A, throa t Unknown Analyte Normal = Negati ve Not Available [facility] [address] [place] [address], [phone], 12/19/2022 17:59:21 12/20/1912/19/2022 rapid strep group A, throa t Unknown Analyte negati ve Not Available [facility] [address], [address], 12/19/2022 17:59:21 Result Notes None recorded. Problems Name Problem SNOMED Code Status Onset Date Resolution Date Notes Provider Name and Address Organization Details Recorded Time Asthma 080003738 Active 023 RONAK Singleton opal PA - [facility] 3 17:57:43 Polycystic ovary syndrome 781585673 Active 023 RONAK HASEEB joseph PA - [...] Updated DateTime 3 165.1 cm 41.6 kg/m2 573151. 09 g 18 /min 82 /min 98 [...] Diagnosis/Indication Diagnosis SNOMED-CT Code Diagnosis ICD10 Code Diagnosis Note [id number] [address] [address] 10/10/2020 12:21:24 10/10/2020 12:54:59 [id number] Mohsen Us NP [facility] [address] [place] [address] 12/19/2022 17:41:33 12/19/2022 18:23:00 Streptococcal sore throat 40102824 J02.0 Health Concerns Section Related Observation LastModified by Organization Detai ls LastModified Time None Recorded Concern Status LastModified by Organization Details LastModified Time None Recorded Advance Directives Directive None Recorded Payers Encounter Date Sequence Insurance Name Policy Number Policy Coleman Covered Member ID Coleman Member ID Guarantor Name 10/10/2020 1 [place] [id number] Stuart Cornejo [id number] JEFF Cornejo 12/19/2022 1 [place] [id number] Stuart Cornejo [id number] JEFF Cornejo Notes Date Note Type Note Provider Name and Address Organization Details Recorded Time 3 text/html Sore throatReported bypatient.Source of patient informationInformation obtained from patient; Patient arrived at Urgent Care ambulatory; learning styles: auditory Location:throat Severity:mild Quality:sharp; burning Onset/Timin days Associated Symptoms:no sputum production; no shortness of breath; no wheezing; no vomiting; no nausea;sore throat;hoarseness;coughing; sinus pain/ congestion Context:no foreign travel; non-smoker;sick contact Modifying Factors:exposed to Strep non household Mohsentaty Us NP [address] [place], [address], [place] - [facility] 12/19/2022 18:18:03 OBGyn Episode No OBEpisode recorded.
--- OUTSIDE RECORDS SUMMARY | 2024-08-19 08:12 | XMS_ITS | Encounter Summary ---
Author Organization [facility] [place], Address [address] [place] [address] Phone Care Team Providers Care Administrative Office Specialist Name Role Phone Cherie Luna MD Primary Care Provider [phone] Encounter Details Date Type Department Care Team (Late st Contact Info) Description 10/09/2021 Documentation Only [facility] [place], [address] [place] [phone] Jose Miguel Barrios MD [address] [facility] [place] [phone] Social History Tobacco Use Types Packs/Day Years [...] Visit [facility] [place], [address] [place] [address] Jose Miguel Barrios MD [address] [facility] [place] [address] documented as of this encounter Visit Diagnoses Not on filedocumented in this encounter Care Teams Administrative Office Specialist Relationship Specialty Start Date End Date Cherie Luna MD [address] [place] [address] PCP - General Internal Medicine 10/10/20 documented as of this encounter
== END 2024-08-19 10:03 | disposition home or self-care (01) ==
PROVIDERS: PCP Internal Medicine; Visit Provider Advanced Practice Midwife
DX: N83.299 Other ovarian cyst, unspecified side (principal); Z32.02 Encounter for pregnancy test, result negative
CPT/HCPCS: 99213

== ENCOUNTER → 2024-08-19 08:05 | Outpatient (BNVA) | payer BC, SELFPAY | PROVIDERS: PCP Internal Medicine; Visit Provider Advanced Practice Midwife | DX: N83.291 Other ovarian cyst, right side (principal) | CPT/HCPCS: 81025 ==

== ENCOUNTER 2024-09-16 14:30 | Outpatient (AMB) | payer OTHER, SELFPAY ==
--- NOTE | 2024-09-16 14:37 | A.OFFVIS_ITS ---
VS Expanded 09/16/24 14:49 09/16/24 15:10 Height 5 ft 5 in 5 ft 5 in Weight 235 lb 14.314 oz 235 lb BMI 39.3 39.1 Intake Visit Reasons: obesity Allergies medroxyprogesterone [From Depo-Provera] Allergy (Unknown, Verified 08/19/24 08:09) Ellen Nutrition Presentation Details: Pt presents for MNT f/u for obesity Pt reports participating in physical activity 30 min cardio (1 mile) 2-4 times/wk, working on consistently keeping physically active. Reports working on making a habit to have breakfast and lunch, not skipping these meals (lean protein /fruits or sand) challenges: portion sizes in the evening but gradually working on reducing on second servings. dairy: lactose intolerant choosing almond milk 1 cup/day and some cheese fish 0-2x/wk fruits : 2/d ve-4 times a week starches >20 Pt reports recent diagnosis of complex ovarian cyst Pt reports having had a couple of day of less food intake related to decreased appetite ? from recent diagnosis ,(complex ovarian cyst) BS Monitoring Most Recent Diabetes Results: Cholesterol 132 mg/dL (<200) 03/31/24 HDL Cholesterol 36 mg/dL (>40) L 03/31/24 Triglycerides 48 mg/dL (<150) 03/31/24 Creatinine 0.68 mg/dL (0.5-1.4) 03/31/24 Blood Urea Nitrogen 14 mg/dL (9-16) 03/31/24 Sodium 141 mmol/L (135-145) 03/31/24 Potassium 3.9 mmol/L (3.3-5.1) 03/31/24 Chloride 110 mmol/L (96-108) H 03/31/24 Carbon Dioxide 25 mmol/L (22-29) 03/31/24 Calcium 8.9 mg/dL (8.4-10.2) 03/31/24 AST 13 U/L (5-31) 03/31/24 ALT 14 U/L (0-31) 03/31/24 Total Protein 7.1 g/dL (6.5-8.0) 03/31/24 Albumin 4.1 g/dL (3.5-5.0) 03/31/24 FVE-Dimazlp-Yz.Jeor Equation Height: 5 ft 5 in Weight: 235 lb Resting Metabolic Rate: 1812.75 Calculated Activity Level: Mild Activity Calories Needed to Maintain Weight: 2492.53 [facility] Medical History (Updated 08/06/24 @ 15:31 by Mis Sanchez CNM) Complex ovarian cyst Physical exam Left wrist sprain Hair loss Encounter to discuss test results Pelvic cramping Encounter for annual routine gynecological examination Local reaction to COVID-19 vaccine Fatigue Morbid obesity Rash Dizziness Cough Migraine with aura CHRISTO (generalized anxiety disorder) Severe major depression Depression CKD (chronic kidney disease) Asthma Surgical History No history of previous surgery Family History Mother Heart attack Father Deaf Family/Other Substance use disorder Mental health disorder Social History Housing: House Housing Other:: living with parents Alcohol intake: current Alcohol intake frequency: holidays/special occasions only Alcohol type: wine and hard liquor Patient Tobacco Use Status: Never used Tobacco e-Cigarette/Vaping Use: Never Used Second Hand Smoke Exposure: No Substance Use Type: Marijuana service: No Current occupational status: employed Current occupational exposures/hazards: No Sexual orientation: Bisexual Gender identity: Female Cognitive needs: No Hearing needs: No Vision needs: No Female Reproductive History Menstrual Age of Menarche: 11 Assessment & Plan Assessment & Plan (1) Morbid obesity due to excess calories: Code(s): E66.01 - Morbid (severe) obesity due to excess calories Category: Medical Plan: Educate Pt on 2300 [address] meal plan ? Used wt : 120kg/BMI 43 (03/2022), 115 kg (04/2023), 118 kg (), 110kg/BMI 40.4 (06/30), 100 kg (09/29) Est kcal as per MSJ: 2350 (40% carb, 30% fat/prot) Est fluid needs: 5757-9121 ml/d (25-35 ml/kg bw) Rec fiber: increase to 8-10 g per day and gradually increase to 25 g/d or as tolerated Rec Na: < 2000 mg /d Educate patient on: (R= Reviewed, V = verbalizes understanding N/R= Needs review N/A= not applicable) * Food sources of carbohydrates and serving adequate serving sizes : R * Difference between complex carbohydrates and simple carbohydrates, role of fiber: R * Differences between fats (MUFA/PUFA/saturated fats, trans fats) and food sources of various fats: R, V * Food sources of sodium and salt and healthy modifications for heart health and kidney health: R * Vitamins and minerals: R, discussed Vit D sources of foods, b vit, iron * How to interpret food labels: R, V * Healthy Plate method concept: R * Physical activity: benefits and precaution: R * Mindful eating, lowering high calorie foods R, V * including fruit in diet , R * Lean protein sources of foods and hydration Patient Instructions: Aim at having lean protein foods in [facility] meal/snack 21-30 g at meal 8-12 at snack include vitamin c rich foods with protein sources (beans, fruits,vegetables) Keep hydrated by having water with meals and snacks Keep physically active as established Coding Level of Care Code Nutr Indiv Subseq (56736) Diagnoses Morbid obesity due to excess calories E66.01 Time Spent (min) 20
[2024-09-16 14:49] VITALS: BMI 39.3
[2024-09-16 15:10] VITALS: BMI 39.1
--- OUTSIDE RECORDS SUMMARY | 2024-09-16 17:08 | XMS_ITS | Encounter Summary ---
Author Organization [facility] Address [address] [place] [address] Phone Care Team Providers Care Security Flex Officer Name Role Phone Cherie Luna MD Primary Care Provider Encounter Details Date Type Department Care Team (Late st Contact Info) Description 04/18/2023 Documentation Only [facility] [address] [place] [address] Jeanine Arguello PA Social History [...] Visit [facility] [address] [place] [address] Jose Miguel Barrios MD [address] [place] [phone] documented as of this encounter Visit Diagnoses Not on filedocumented in this encounter Care Teams Security Flex Officer Relationship Specialty Start Date End Date Cherie Luna MD [address] PCP - General Internal Medicine 10/10/20 documented as of this encounter
--- OUTSIDE RECORDS SUMMARY | 2024-09-16 17:08 | XMS_ITS | Clinical Summary ---
Author Organization [facility] [place], Address [address] [place] [address] Phone Care Team Providers Care Energy Conservation Director Name Role Phone Cherie Luna MD Primary Care Provider [phone] Allergies No known active allergies Medications albuterol [...] Office Visit [facility], [address] [place] [phone] Jose Miguel Barrios MD Recurrent and persistent hematuria with minimal change lesion (Primary Dx) from Last 3 Months Family History Medical [...] Visit [facility] [place], [address] [place] [phone] Jose Miguel Barrios MD [address] [place] [address] [place] [phone] Health Maintenance Due Date Last Done Comments Pneumococcal Vaccine: Pediat rics (0 to 5 Years) and At-Risk Patients (6 to 64 Years) (1 of 2 - PCV) 2005 Hepatitis B Vaccine (1 of 3 - 19+ 3-dose series) 07/18 Influenza Vaccine (#1) 2024 Insurance [facility] Care Teams Energy Conservation Director Relationship Specialty Start Date End Date Cherie Luna MD [address] [place] [address] PCP - General Internal Medicine 10/10/20
--- OUTSIDE RECORDS SUMMARY | 2024-09-16 17:08 | XMS_ITS | Encounter Summary ---
Author Organization [facility] [place], Address [address] [place] [address] Phone Care Team Providers Care Ophthalmic Tech Name Role Phone Cherie Luna MD Primary Care Provider [phone] Encounter Details Date Type Department Care Team (Late st Contact Info) Description 10/09/2021 Documentation Only [facility], [address] [place] [phone] Jose Miguel Barrios MD [address] [facility] [address] [place] [phone] Social History Tobacco Use Types Packs/Day Years [...] Visit [facility] [place], [address] [place] [address] Jose Miguel Barrios MD [address] [place] [address] documented as of this encounter Visit Diagnoses Not on filedocumented in this encounter Care Teams Ophthalmic Tech Relationship Specialty Start Date End Date Cherie Luna MD [address] [place] [address] PCP - General Internal Medicine 10/10/20 documented as of this encounter
--- OUTSIDE RECORDS SUMMARY | 2024-09-16 17:08 | XMS_ITS | Encounter Summary ---
Author Organization [facility] Address [address] [place] [address] Phone Care Team Providers Care Ski Instructor Name Role Phone Cherie Luna MD Primary Care Provider [phone] Encounter Details Date Type Department Care Team (Late st Contact Info) Description 06/01/2024 Orders Only [facility] [address] [place] [address] Jeanine Arguello PA Hematuria, not [...] Visit [facility] [address] [place] [phone] JoseM iguel Barrios MD [address] [facility] [place] [address] documented as of this encounter Visit Diagnoses Diagnosis Hematuria, not otherwise specified Vitamin D deficiency, not otherwise specified documented in this encounter Care Teams Ski Instructor Relationship Specialty Start Date End Date Cherie Luna MD [address] [place] [address] [address] [place] [address] PCP - General Internal Medicine 10/10/20 documented as of this encounter
--- OUTSIDE RECORDS SUMMARY | 2024-09-16 17:09 | XMS_ITS | Data Portability ---
Author Organization [facility] Address [address] [place] [address] Assessment No assessment recorded. Plan of Treatment Reminders Order Date Submit Date Provider Last Modified By Organization Details Last Modified Time Details Appointments None recorded. Lab rapid strep group A, throat 2022 023 [email or web address] _[facility], [address] [place] [address], [address], 18:16:37 streptococc us group A, culture, throat 2022 023 [place] [facility], [address] [place] [address], [address], 06:08:07 Referral None recorded. Procedures None recorded. Surgeries None recorded. Imaging None recorded. Medication Orders amoxicillin 875 mg tablet 2022 023 [facility][id number], [address] [facility], [place], [address], 18:17:26 Patient TargetsNo targets recorded. Patient Instructions Encounter Date Encounter Id Patient Instructions Last Modified By Organization Details Last Modified Time 12/19/2022 [id number] sore throat: car e instructions Not available [...] undesirable side effects. Probiotics can be purchased [id number] at your pharmacy in the form of [...] Range : Negat valentino Not Available [facility] ([facility]) [address], [place], [address], 12/22/2022 06:08:07 12/20/1912/19/2022 rapid strep group A, throa t Unknown Analyte Normal = Negati ve Not Available [facility] [address] [place] [address], [address], 12/19/2022 17:59:21 12/20/1912/19/2022 rapid strep group A, throa t Unknown Analyte negati ve Not Available _nataliia muniz [address], [address], 12/19/2022 17:59:21 Result Notes None recorded. Problems Name Problem SNOMED Code Status Onset Date Resolution Date Notes Provider Name and Address Organization Details Recorded Time Asthma 191511324 Active 023 RONAK Singleton opal PA - [facility] 3 17:57:43 Polycystic ovary syndrome 876612740 Active 023 RONAK HASEEB joseph PA - [...] Updated DateTime 3 165.1 cm 41.6 kg/m2 577040. 09 g 18 /min 82 /min 98 [...] SNOMED-CT Code Diagnosis ICD10 Code Diagnosis Note [id number] [address] [address] 10/10/2020 12:21:24 10/10/2020 12:54:59 [id number] Mohsen Us NP 21005_[facility] [address] [place] [address] 12/19/2022 17:41:33 12/19/2022 18:23:00 Streptococcal sore throat 96868385 J02.0 Health Concerns Section Related Observation LastModified by Organization Detai ls LastModified Time None Recorded Concern Status LastModified by Organization Details LastModified Time None Recorded Advance Directives Directive None Recorded Payers Encounter Date Sequence Insurance Name Policy Number Policy Coleman Covered Member ID Coleman Member ID Guarantor Name 10/10/2020 1 [place] [id number] Stuart Cornejo [id number] [id number] Alison Cornejo 12/19/2022 1 [place] [id number] Stuart Cornejo [id number] MB [id number] Alison Chantal Notes Date Note Type Note Provider Name [...] Us NP [address] [place], [address], [place] - [facility] 12/19/2022 18:18:03 OBGyn Episode No OBEpisode recorded.
== END 2024-09-16 15:08 | disposition home or self-care (01) ==
LOC: HO.ENCR 14:31
PROVIDERS: PCP Internal Medicine; Visit Provider Dietitian, Registered
DX: E66.01 Morbid (severe) obesity due to excess calories (principal)

== ENCOUNTER → 2024-09-16 14:30 | Outpatient (BNVA) | payer OTHER, SELFPAY | PROVIDERS: PCP Internal Medicine; Visit Provider Dietitian, Registered | DX: E66.01 Morbid (severe) obesity due to excess calories (principal); Z68.39 Body mass index [BMI] 39.0-39.9, adult; Z71.3 Dietary counseling and surveillance | CPT/HCPCS: 97803 ==

== ENCOUNTER 2025-01-06 14:41 | Outpatient (AMB) | payer OTHER, SELFPAY ==
[2025-01-06 14:44] VITALS: BMI 39.9
--- NOTE | 2025-01-06 14:44 | A.OFFVIS_ITS ---
VS Expanded 01/06/25 14:44 Height 5 ft 5 in Weight 239 lb 13.807 oz BMI 39.9 Intake Visit Reasons: Obesity Allergies medroxyprogesterone (From Depo-Provera) Allergy (Unknown, Verified 08/19/24 08:09) Hives Nutrition Presentation Details: Pt presents for MNT for morbid obesity Pt reports lately lacking meal routine/planning due to changes in work schedule and summer schedule has gym membership but has not attending in the past 3 months Will review quick meal ideas to resume meal planning/routine BAJ-Vkqvttx-Gw.Jeor Equation Height: 5 ft 5 in Weight: 240 lb Resting Metabolic Rate: 1835.41 Calculated Activity Level: Sedentary Calories Needed to Maintain Weight: 2202.49 [facility] Medical History (Updated 08/06/24 @ 15:31 by Mis Sanchez CNM) Complex ovarian cyst Physical exam Left wrist sprain Hair loss Encounter to discuss test results Pelvic cramping Encounter for annual routine gynecological examination Local reaction to COVID-19 vaccine Fatigue Morbid obesity Rash Dizziness Cough Migraine with aura CHRISTO (generalized anxiety disorder) Severe major depression Depression CKD (chronic kidney disease) Asthma Surgical History No history of previous surgery Family History Mother Heart attack Father Deaf Family/Other Substance use disorder Mental health disorder Social History Housing: House Housing Other:: living with parents Alcohol intake: current Alcohol intake frequency: holidays/special occasions only Alcohol type: wine and hard liquor Patient Tobacco Use Status: Never used Tobacco e-Cigarette/Vaping Use: Never Used Second Hand Smoke Exposure: No Substance Use Type: Marijuana service: No Current occupational status: employed Current occupational exposures/hazards: No Sexual orientation: Bisexual Gender identity: Female Cognitive needs: No Hearing needs: No Vision needs: No Female Reproductive History Menstrual Age of Menarche: 11 Assessment & Plan Assessment & Plan (1) Morbid obesity due to excess calories: Code(s): E66.01 - Morbid (severe) obesity due to excess calories Category: Medical Plan: Educate Pt on 8582-0899 hakeem meal plan ? Used wt : 120kg/BMI 43 (03/2022), 115 kg (04/2023), 118 kg (), 110kg/BMI 40.4 (06/30), 100 kg (09/29), 109 kg (01/29) Est kcal as per MSJ: 2200 (40% carb, 30% fat/prot) Est fluid needs: 1770-9929 ml/d (25-35 ml/kg bw) Rec fiber: increase to 8-10 g per day and gradually increase to 25 g/d or as tolerated Rec Na: < 2000 mg /d Educate patient on: (R= Reviewed, V = verbalizes understanding N/R= Needs review N/A= not applicable) * Food sources of carbohydrates and serving adequate serving sizes : R * Difference between complex carbohydrates and simple carbohydrates, role of fiber: R * Differences between fats (MUFA/PUFA/saturated fats, trans fats) and food sources of various fats: R, V * Food sources of sodium and salt and healthy modifications for heart health and kidney health: R * Vitamins and minerals: R, discussed Vit D sources of foods, b vit, iron * How to interpret food labels: R, V * Healthy Plate method concept: R * Physical activity: benefits and precaution: R * Mindful eating, lowering high calorie foods R, V * including fruit in diet , R * Lean protein sources of foods and hydration : R, V Patient Instructions: Resume meal prep: consider sandwich for lunch vs skipping - see ideas Engage in physical activity at least 3 times a week 20 -30 minutes Coding Level of Care Code Nutr Indiv Subseq (12579) Diagnoses Morbid obesity due to excess calories E66.01 Time Spent (min) 25
--- OUTSIDE RECORDS SUMMARY | 2025-01-06 15:09 | XMS_ITS | Data Portability ---
Author Organization [facility] Address [address] [place] [address] Assessment No assessment recorded. Plan of Treatment Reminders Order Date Submit Date Provider Last Modified By Organization Details Last Modified Time Details Appointments None recorded. Lab rapid strep group A, throat 2022 023 [email or web address] [facility], [address] [place] [address], [phone], 18:16:37 streptococc us group A, culture, throat 2022 023 [place], [address] [place] [address], [place], [address], 06:08:07 Referral None recorded. Procedures None recorded. Surgeries None recorded. Imaging None recorded. Medication Orders amoxicillin 875 mg tablet 2022 023 [facility] #[id number], [address] [facility], [place], [address], 18:17:26 Patient TargetsNo targets recorded. Patient Instructions Encounter Date Encounter Id Patient Instructions Last Modified By Organization Details Last Modified Time 12/19/2022 [id number] sore throat: car e instructions Not available [...] undesirable side effects. Probiotics can be purchased [id number] at your pharmacy in the form of [...] Range : Negat valentino Not Available [facility] ([facility]) [address] [facility], [place], [address], 12/22/2022 06:08:07 12/20/1912/19/2022 rapid strep group A, throa t Unknown Analyte Normal = Negati ve Not Available _nataliia muniz [address], [address], 12/19/2022 17:59:21 12/20/1912/19/2022 rapid strep group A, throa t Unknown Analyte negati ve Not Available _nataliia mun[facility] [address], [address], 12/19/2022 17:59:21 Result Notes None recorded. Problems Name Problem SNOMED Code Status Onset Date Resolution Date Notes Provider Name and Address Organization Details Recorded Time Asthma 591535646 Active 023 RONAK joseph PA - [facility] 3 17:57:43 Polycystic ovary syndrome 411748319 Active 023 RONAK joseph PA - [facility] 3 17:58:12 [...] Updated DateTime 3 165.1 cm 41.6 kg/m2 087383. 09 g 18 /min 82 /min 98 % 98 % 98.7 [degF] 106 mm[Hg] 72 mm[Hg] RONAK Singleton PA - [facility] 3 18:01:14 Social History Question Answer Notes LastModified by Organizat ion Details LastModified Time Tobacco Smoking Status Never Smoker RONAK joseph PA - [facility] 12/19/2022 17:58:49 Which Illicit Or Recreational Drugs Have You Used? Marijuana Information not available 12/19/2022 What Is Your Water Source? City Information not available 12/19/2022 What Is Your Heat Source? Other Information not available 12/19/2022 Have You Had Direct Contact, Or Contact During Intimacy, With Monkeypox Rash, Scabs, Or Body Fluids From A Person With Monkeypox? No Information not available 12/19/2022 Have You Recently Traveled Abroad? No Information not available 12/19/2022 Sex: Unknown Functional Status Question Answer Note LastModified by Organizat ion Details LastModified Time Do you use any illicit or recreational drugs? Yes Information not available 12/19/2022 Do you or have you ever used any other forms of tobacco or nicotine? No Information not available 12/19/2022 What is your level of alcohol consumption? Occasional Information not available 12/19/2022 Mental Status None recorded. Family History Relationship [...] SNOMED-CT Code Diagnosis ICD10 Code Diagnosis Note [id number] [facility] [address] [place] [address] 10/10/2020 12:21:24 10/10/2020 12:54:59 [id number] Mohsen Us NP 20995_[facility] [address] [place] [address] 12/19/2022 17:41:33 12/19/2022 18:23:00 Streptococcal sore throat 42705690 J02.0 Health Concerns Section Related Observation LastModified by Organization Detai ls LastModified Time None Recorded Concern Status LastModified by Organization Details LastModified Time None Recorded Advance Directives Directive None Recorded Payers Insurance Date Sequence Insurance Name Policy Number Policy Coleman Covered Member ID Coleman Member ID Guarantor Name 12/19/2022 1 MARYANN (PPO) [id number] Stuart Cornejo [id number] MB [id number] Cornejo Notes Date Note Type Note Provider [...] DEBORA Us [address] [place], [address], [place] - [facility] 12/19/2022 18:18:03 OBGyn Episode No OBEpisode recorded.
--- OUTSIDE RECORDS SUMMARY | 2025-01-06 15:09 | XMS_ITS | Clinical Summary ---
Author Organization [facility], Address [address] [place] [address] [place] [address] Phone Care Team Providers Care Odd Piece Checker Name Role Phone Cherie Luna MD Primary Care Provider [phone] Allergies No known active allergies Medications albuterol [...] with minimal change lesion 10/06/2019 Hematuria 03/23/2014 Family History Medical History Relation Comments Cancer [...] Visit [facility] [place], [address] [place] [address] Jose Miguel Barrios MD [address] [facility] [place] [phone] Health Maintenance Due Date Last Done Comments Hepatitis B Vaccine (1 of 3 - 19+ 3-dose series) 07/18 Pneumococcal Vaccine: Peds ( 0 to 5 Years) and At-Risk Patients (6 to 49 Years) (1 of 2 - PCV) 2018 Influenza Vaccine (Season Ended) 2025 Insurance [facility] Care Teams Odd Piece Checker Relationship Specialty Start Date End Date Cherie Luna MD [address] [place] [address] PCP - General Internal Medicine 10/10/20
[2025-01-21 12:16] VITALS: BMI 39.9
== END 2025-01-06 15:06 | disposition home or self-care (01) ==
LOC: HO.ENCR 14:41
PROVIDERS: PCP Internal Medicine; Visit Provider Dietitian, Registered
DX: E66.01 Morbid (severe) obesity due to excess calories (principal)

== ENCOUNTER → 2025-01-06 14:41 | Outpatient (BNVA) | payer OTHER, SELFPAY | PROVIDERS: PCP Internal Medicine; Visit Provider Dietitian, Registered | DX: E66.01 Morbid (severe) obesity due to excess calories (principal); Z68.39 Body mass index [BMI] 39.0-39.9, adult | CPT/HCPCS: 97803 ==

== ENCOUNTER → 2025-01-26 14:51 | Outpatient (BNVA) | payer OTHER, SELFPAY | PROVIDERS: PCP Internal Medicine; Visit Provider Physician Assistant Medical | DX: S40.022A Contusion of left upper arm, initial encounter (principal); W50.0XXA Accidental hit or strike by another person, initial encounter; Z02.79 Encounter for issue of other medical certificate | CPT/HCPCS: 99202 ==

== ENCOUNTER 2025-03-09 16:04 | Outpatient (AMB) | payer BC, SELFPAY ==
--- NOTE | 2025-03-09 16:07 | A.OFFPC_ITS ---
Vital Signs 03/09/25 16:08 Height 5 ft 5 in Weight 238 lb BMI 39.6 BP 120/64 Blood Pressure Location Lt brachial Position Sitting Respiration 18 Pulse 111 H Pulse Source Pulse Oximeter Temp 97.5 F Temp Source Temporal Artery Scan Pulse Oximetry (%) 99 Oxygen Delivery Method Room Air Intake Visit Reasons: Annual Exam Toggle Press Folder And Feeder Required: No Accompanied by: Self / Same As Patient Allergies medroxyprogesterone (From Depo-Provera) Allergy (Unknown, Verified 03/09/25 16:20) Hives Medication List - Last Reconciled 03/09/25 by Cherie Beauchamp MD norethindrone (contraceptive) (Jessica) 0.35 mg PO DAILY Tobacco use date assessed: 03/09/25 Dental Screening Dental Screen Date: 03/09/25 Did you have a dental visit in the last 12 months?: No Did you have a dental problem in the last 6 months where you did not have access to dental care?: No Was dental information given to patient?: No HPI HPI Comments History of Present Illness Details This is a 24-year-old female that comes for her physical exam. Tdap vaccine done today. Pap smear done 2021. She complains of right upper quadrant abdominal pain that started few months ago and happens at least 3 times a week. She also has mild major depression follow by therapist. [facility] Medical History Morbid obesity due to excess calories Complex ovarian cyst Physical exam Left wrist sprain Hair loss Encounter to discuss test results Pelvic cramping Encounter for annual routine gynecological examination Local reaction to COVID-19 vaccine Fatigue Morbid obesity Rash Dizziness Cough Migraine with aura CHRISTO (generalized anxiety disorder) Severe major depression Depression CKD (chronic kidney disease) Asthma Surgical History No history of previous surgery Family History Mother Heart attack Father Deaf Family/Other Substance use disorder Mental health disorder Social History Housing: House Housing Other:: living with parents Alcohol intake: current Alcohol intake frequency: holidays/special occasions only Alcohol type: wine and hard liquor Patient Tobacco Use Status: Never used Tobacco e-Cigarette/Vaping Use: Never Used Second Hand Smoke Exposure: No Substance Use Type: Marijuana service: No Current occupational status: employed Current occupational exposures/hazards: No Sexual orientation: Bisexual Gender identity: Female Cognitive needs: No Hearing needs: No Vision needs: No Female Reproductive History Menstrual Age of Menarche: 11 Questionnaire PHQ-9 Over the last 2 weeks, how often have you been bothered by any of the following problems? 1. Little interest or pleasure in doing things: more than half the days 2. Feeling down, depressed, or hopeless: more than half the days 3. Trouble falling or staying asleep, or sleeping too much: more than half the days 4. Feeling tired or having little energy: several days 5. Poor appetite or overeating: more than half the days 6. Feeling bad about yourself - or that you are a failure or have let yourself or your family down: more than half the days 7. Trouble concentrating on things, such as reading the newspaper or watching television: several days 8. Moving or speaking so slowly that other people could have noticed. Or the opposite - being so fidgety or restless that you have been moving around a lot more than usual: not at all 9. Thoughts that you would be better off or of hurting yourself in some way: several days Total score: 13 Depression Screening Interpretation: Positive Depression Screening Follow-up: Existing condition, In treatment, Community Mental Health Worker F/U and Follow- up Visit Requested Depression Screening Done: Yes 00453 - PHQ-9 Billing: Yes Source: Developed by Drs. Maykel Conroy, Julia Alejandro, Félix Smiley and colleagues, with an educational dutch from [employer]. Thrive Questionnaire Date Thrive assessed: 03/09/25 I am a: Patient What is your living situation today?: I have a steady place to live Within the past 12 months, did the food you bought not last and you didn't have the money to get more?: Never true Within the past 12 months, did you worry whether your food would run out before you got money to buy more?: Sometimes True Do you have trouble paying for medicines?: Yes Do you have trouble getting transportation to medical appointments?: Yes Do you have trouble paying your heating and electricity bill?: I choose not to answer this question Do you have trouble taking care of your child, family member or friend?: No Do you have trouble with day-to-day activities such as bathing, preparing meals, shopping, managing finances, etc.?: No Are you currently unemployed and looking for a job?: No Are you interested in more education?: I choose not to answer this question Please select the resources that you would like help with: Food, Paying for medicine and Education Currently or been in a relationship where the following occur: No concerns reported THRIVE Score: 2 AUDIT C Alcohol Use Questionnaire (AUDIT-C) 1. How often do you have a drink containing alcohol?: Monthly or less 2. How many drinks containing alcohol do you have on a typical day when you are drinking?: 1 or 2 3. How often do you have six or more drinks on one occasion?: Less than monthly Total Score: 2 Score Reviewed/Action Taken: No CHRISTO-7 AMB Questionnaire CHRISTO-7 Date CHRISTO - 7 assessed: 03/09/25 Feeling nervous, anxious, or on edge: 3 = Nearly every day Not being able to stop or control worryin = Nearly every day Worrying too much about different things: 3 = Nearly every day Trouble relaxin = More than half the days Being so restless that it is hard to sit still: 1 = Several days Becoming easily annoyed or irritable: 2 = More than half the days Feeling afraid as if something awful might happen: 2 = More than half the days Total CHRISTO-7 score (0-4 normal; 5-9 mild; 10-14 moderate; 15-21 severe): 16 Source: Developed by Drs. Maykel Conroy, Julia Alejandro, Félix Smiley and colleagues, with an educational dutch from [employer]. CHRISTO-7 Assessment Billing CHRISTO-7 Assessment Tool: CHRISTO-7 Assessment 66078 Review of Systems Const All systems reviewed & are unremarkable except as noted in HPI and below Card Denies chest pain at rest, Denies chest pain with activity, Denies edema, Denies irregular heart rhythm, Denies claudication, Denies dyspnea, Denies dyspnea on exertion, Denies orthopnea, Denies paroxysmal nocturnal dyspnea and Denies slow heart rate Resp Denies cough, Denies dyspnea and Denies dyspnea on exertion Physical exam (Primary Care) Vital Signs: Last Vital Signs Temp 97.5 F 03/09/25 16:08 Pulse 111 H 03/09/25 16:08 Resp 18 03/09/25 16:08 BP 120/64 03/09/25 16:08 Pulse Ox 99 03/09/25 16:08 Oxygen Delivery Method Room Air 03/09/25 16:08 BMI result Body Mass Index 39.6 BMI Assessment/Plan discussion: High BMI High, discussed plan: lifestyle, weight reduction, dietary and physical activity Tobacco/Smoking Status: Tobacco use Status Tobacco use date assessed 03/09/25 03/09/25 16:16 Patient Tobacco Use Status Never used Tobacco 03/09/25 16:16 e-Cigarette/Vaping Use Never Used 03/09/25 16:16 PHQ-9: PHQ-9 Score PHQ-9: Total score 13 03/09/25 16:45 Depression Screening Interpretation: Positive Depression Screening Follow-up: Existing condition, In treatment, Community Mental Health Worker F/U and Follow- up Visit Requested Thrive Assessment: Date of Thrive Assessment Date Thrive assessed 03/09/25 03/09/25 16:16 Currently or been in a relationship where the following occur: No concerns reported HENMT Head: Yes normal to inspection, Yes normocephalic and Yes atraumatic Ears: external ears normal Eyes General: appearance normal, both eyes and all related structures Eyelids: Yes eyelids normal Conjunctivae: conjunctivae normal Neck Neck: Yes normal visual inspection and Yes supple Resp Effort & Inspection: normal respiratory effort Auscultation: clear to auscultation bilaterally Cardio Jugular venous distension: no JVD Rate: regular rate Rhythm: regular rhythm Heart sounds: S1 normal heart sound present and S2 normal heart sound present GI Inspection: Yes normal to inspection Palpation (GI): Soft to palpation and nontender Auscultation: normal bowel sounds Skin General skin exam: no rashes or lesions noted Neuro General: no focal motor deficits Extrem General: Yes full ROM Psych Appearance: grossly normal Immunizations Boostrix Tdap 2.5 Lf unit-8 mcg-5 Lf/0.5 mL intramuscular syringe Performing Provider: Cherie Beauchamp MD Performing Location: [facility] Administered by: Evelyn Galaviz LPN on 03/09/25 16:41 Dose Route Admin Location Dispensed Lot Number Expiration Date NDC Supervisor [employer] 0.5 mL IM Left Deltoid 0.5 mL [id number] 04/30/27 [id number] [employer] Total Dispensed Waste 0.5 mL 0 % VIS Given Date VIS Provided VIS Publication Date 03/09/25 Single Vaccine 21 Eligibility Eligibility Date Funding Source Not [facility] Eligible 03/09/25 Private Coding Level of Care Code Est Pt Level 3 (04738) Est Pt Prev Care 18-39y(33324) Diagnoses Physical exam Z00.00 Mild major depression F32.0 Right upper quadrant abdominal pain R10.11 Additional Codes CHRISTO-7 Assessment Billing - CHRISTO-7 Assessment Tool: CHRISTO-7 Assessment 43791 ([id number]) PHQ-9 - 03590 - PHQ-9 Billing: Yes ([id number]) Time Spent (min) 32 Assessment & Plan Assessment & Plan (1) Physical exam: Code(s): Z00.00 - Encounter for general adult medical examination without abnormal findings Category: Medical (2) Mild major depression: Code(s): F32.0 - Major depressive disorder, single episode, mild Category: Medical (3) Right upper quadrant abdominal pain: Code(s): R10.11 - Right upper quadrant pain Category: Medical Plan Repeat physical exam in a year. Ultrasound of the abdomen ordered to evaluate abdominal pain. Orders: Orders TDaP Immunization Today Z23 - Encounter for immunization US abdomen limited Today R10.11 - Right upper quadrant pain
[2025-03-09 16:08] VITALS: BP 120/64; PULSE 111; RESP 18; TEMP 36.4; O2SAT 99; BMI 39.6
--- OUTSIDE RECORDS SUMMARY | 2025-03-09 16:47 | XMS_ITS | Clinical Summary ---
Author Organization [facility], Address [address] [place] [address] [place] [address] Phone Care Team Providers Care Commercial Decorator Name Role Phone Cherie Luna MD Primary Care Provider [phone] Allergies No known active allergies Medications albuterol [...] Visit [facility], [address] [address] Jose Miguel Barrios MD [address] [facility] [address] [place] [phone] Health Maintenance Due Date Last Done Comments Hepatitis B Vaccine (1 of 3 - 19+ 3-dose series) 07/18 Pneumococcal Vaccine: Peds ( 0 to 5 Years) and At-Risk Patients (6 to 49 Years) (1 of 2 - PCV) 2018 Influenza Vaccine (#1) 2025 Insurance [facility] Care Teams Commercial Decorator Relationship Specialty Start Date End Date Cherie Luna MD [address] [place] [address] PCP - General Internal Medicine 10/10/20
--- OUTSIDE RECORDS SUMMARY | 2025-03-09 16:47 | XMS_ITS | Clinical Summary ---
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 Not on kaitlynn e 11/02/2022 Are you concerned about learning? Not on file 11/02/2022 No 11/02/2022 No 11/02/2022 Digital Access Answer Date Recorded No 12/01/2022 No 12/01/2022 No 12/01/2022 Reliable internet access at home? Not on file 12/01/2022 Device with a working camera? Not on file Comments Unknown Sex and Gender Information Value Date Recorded Sex Assigned at Not on file Legal Sex Female 4:35 PM EDT Gender Identity Not on file Sexual Orientation Not on file Last Filed Vital Signs Vital Sign Reading Time Taken Comments Blood Pressure - - Pulse 106 10/23/2019 12:24 PM EDT Temperature 37.4 C (99.3 F) 10/23/2019 12:24 PM EDT Respiratory Rate - - Oxygen Saturation 98% 10/23/2019 12:24 PM EDT Inhaled Oxygen Concentration - - Weight - - Height - - Body Mass Index - - Plan of Treatment Health Maintenance Due Date Last Done Comments Adult Td,Tdap Booster 1999 DEPRESSION SCREENING 2011 SMOKING Hx and SMOKELESS TOB ACCO SCREENING 2012 HPV VACCINES (1 - 3-dose series) 2014 HEPATITIS C SCREENING 2017 HIV ONE-TIME SCREENING (18-6 5 YEARS) 2017 PNEUMOCOCCAL VACCINES (0-49 years) (1 of 2 - PCV) 2018 PAP SMEAR 2020 INFLUENZA VACCINE (#1) 2025 COVID-19 VACCINE (2 - 2024-2 6 season) 2025 08/18/2021 MENINGOCOCCAL VACCINES (ACWY) Completed 01/05/2016 HEPATITIS A VACCINES Aged Out No long er eligible based on patient's age to complete this topic HIB VACCINES Aged Out No longer eligi ble based on patient's age to complete this topic MENINGOCOCCAL VACCINES (B) Aged Out N o longer eligible based on patient's age to complete this topic Medical Devices Not on file Insurance PPO PPO OUT [facility] P[facility] OUT [facility] PPO [place] [facility] PPO [place] OUT OF STATE PPO Member Subscriber Plan / Payer (Ef fective 2017-Present) Name:Alison Dior Member ID:[id number] Relation to Subscriber:Child Name:OVIABY Subscriber ID:[id number] Date of :1901 (Home) Address: [address] [place], [place] Payer ID:[id number] (NAIC) Type:PPO Address: [address] [place] [phone] [place] OUT OF STATE PPO Care Teams Hospital Unit Coordinator Relationship Specialty Start Date End Date Pcp, Unknown PCP - General 10/22/19 Additional Source Comments The information contained in this document represents components of the legal health record. It is not the complete legal health record.[facility]
--- OUTSIDE RECORDS SUMMARY | 2025-03-09 16:47 | XMS_ITS | Encounter Summary ---
Author Organization [facility], Address [address] [place] [address] Phone Care Team Providers Care Dairy Cattle Farmer Name Role Phone Cherie Luna MD Primary Care Provider [phone] Encounter Details Date Type Department Care Team (Late st Contact Info) Description 04/18/2023 Documentation Only [facility], [address] [place] [phone] Jeanine Arguello PA [address] [place] [phone] Social History Tobacco Use Types Packs/Day Years [...] Visit [facility], [address] [place] [address] Jose Miguel Barrios MD [address] [place] [address] documented as of this encounter Visit Diagnoses Not on filedocumented in this encounter Care Teams Dairy Cattle Farmer Relationship Specialty Start Date End Date Cherie Luna MD [address] [place] [address] PCP - General Internal Medicine 10/10/20 documented as of this encounter
--- OUTSIDE RECORDS SUMMARY | 2025-03-09 16:47 | XMS_ITS | Encounter Summary ---
Author Organization [facility] [place], Address [address] [place] [address] Phone Care Team Providers Care Employee Relations Director Name Role Phone Cherie Luna MD Primary Care Provider [phone] Encounter Details Date Type Department Care Team (Late st Contact Info) Description 06/01/2024 Orders Only [facility], [address] [place] [phone] Jeanine Arguello PA [address] [place] [phone] Hematuria, not otherwise specified; Vitamin D deficiency, [...] Visit [facility], [address] [place] [address] Jose Miguel Barrios MD [address] [facility] [place] [address] documented as of this encounter Visit Diagnoses Diagnosis Hematuria, not otherwise specified Vitamin D deficiency, not otherwise specified documented in this encounter Care Teams Employee Relations Director Relationship Specialty Start Date End Date Cherie Luna MD [address] [place], [place] PCP - General Internal Medicine 10/10/20 documented as of this encounter
--- OUTSIDE RECORDS SUMMARY | 2025-03-09 16:47 | XMS_ITS | Encounter Summary ---
Author Organization [facility] [place], Address [address] [place] [address] Phone Care Team Providers Care Industrial Hygenist Name Role Phone Cherie Luna MD Primary Care Provider [phone] Encounter Details Date Type Department Care Team (Late st Contact Info) Description 10/09/2021 Documentation Only [facility], [address] [place] [address] Jose Miguel Barrios MD [address] [facility] [place] [phone] Social History Tobacco Use Types Packs/Day Years [...] Visit [facility], [address] [place] [address] Jose Miguel Barrios MD [address] [facility] [place] [address] documented as of this encounter Visit Diagnoses Not on filedocumented in this encounter Care Teams Industrial Hygenist Relationship Specialty Start Date End Date Cherie Luna MD [address] [place] [address] PCP - General Internal Medicine 10/10/20 documented as of this encounter
== END 2025-03-09 16:39 | disposition home or self-care (01) ==
LOC: HO.HMCH 16:05
PROVIDERS: PCP Internal Medicine; Visit Provider Internal Medicine
DX: Z00.00 Encounter for general adult medical examination without abnormal findings (principal); F32.0 Major depressive disorder, single episode, mild; R10.11 Right upper quadrant pain; Z23 Encounter for immunization

== ENCOUNTER → 2025-03-09 16:04 | Outpatient (BNVA) | payer BC, OTHER, SELFPAY | PROVIDERS: PCP Internal Medicine; Visit Provider Internal Medicine | DX: Z00.00 Encounter for general adult medical examination without abnormal findings (principal); F32.0 Major depressive disorder, single episode, mild; R10.11 Right upper quadrant pain; Z23 Encounter for immunization | CPT/HCPCS: 90471; 90715; 96127 ==

== ENCOUNTER 2025-05-05 08:40 | Outpatient (REF) | payer BC, SELFPAY ==
--- NOTE | ~2025-05-05 | US_ITS ---
CLINICAL HISTORY: R10.11 - Right upper quadrant pain US abdomen limited Comparison: None provided Findings: Fatty infiltration of liver without focal abnormality. Right lobe 17.6 cm length. Main portal vein patent with antegrade flow. Visualized pancreas unremarkable. Gallbladder unremarkable without stones. Tiny gallbladder wall polyps noted. Common duct 7 mm. No wall thickening. Right kidney normal, 12.5 cm in length. Impression: No significant abnormalities. This document has been electronically signed by: Pavan Downs MD on 05/05/2025 22:11:33
--- OUTSIDE RECORDS SUMMARY | 2025-05-05 09:15 | XMS_ITS | Clinical Summary ---
Author Organization [facility] Address [address] [place] [address] Phone Care Team Providers Care Parcel Carrier Name Role Phone Pcp, Unknown Primary Care [...] Not on file Insurance PPO PPO OUT [employer] PPO OUT OF [facility] PPO OUT OF [facility] PPO OUT [employer] PPO [place] OUT OF [facility] PPO [place] OUT OF STATE PPO Member Subscriber Plan / Payer (Ef fective 2017-Present) Name:Alison Dior Member ID:[id number] Relation to Subscriber:Child Name:OVIABY Subscriber ID:[id number] Date of :1901 (Home) Address: [address] [place], [place] Payer ID:[id number] (NAIC) Type:PPO Address: [address] [place] [phone] [place] OUT OF STATE PPO Care Teams Parcel Carrier Relationship Specialty Start Date End Date Pcp, Unknown PCP - General 10/22/19 Additional Source Comments The information contained in this document represents components of the legal health record. It is not the complete legal health record.[facility]
--- OUTSIDE RECORDS SUMMARY | 2025-05-05 09:16 | XMS_ITS | Encounter Summary ---
Author Organization [facility] [place], Address [address] [place] [address] Phone Care Team Providers Care Cement Tile Maker Name Role Phone Cherie Luna MD Primary Care Provider [phone] Encounter Details Date Type Department Care Team (Late st Contact Info) Description 10/09/2021 Documentation Only [facility], [address] [phone] Jose Miguel Barrios MD [address] [facility] [address] [place] [phone] Social History Tobacco Use Types Packs/Day Years [...] Visit [facility], [address] [place] [address] Jose Miguel Barrios MD [address] [facility] [address] [place] [address] documented as of this encounter Visit Diagnoses Not on filedocumented in this encounter Care Teams Cement Tile Maker Relationship Specialty Start Date End Date Cherie Luna MD [address] [place] [address] PCP - General Internal Medicine 10/10/20 documented as of this encounter
--- OUTSIDE RECORDS SUMMARY | 2025-05-05 09:16 | XMS_ITS | Clinical Summary ---
Author Organization [facility], Address [address] [place] [address] [place] [address] Phone Care Team Providers Care Shower Screen Installer Name Role Phone Cherie Luna MD Primary Care Provider Allergies No known active allergies Medications albuterol [...] Visit [facility], [address] [facility] [address] [place] [address] Jose Miguel Barrios MD [address] [place] [phone] Health Maintenance Due Date Last Done Comments Hepatitis B Vaccine (1 of 3 - 19+ 3-dose series) 07/18 Pneumococcal Vaccine: Peds ( 0 to 5 Years) and At-Risk Patients (6 to 49 Years) (1 of 2 - PCV) 2018 Influenza Vaccine (#1) 2025 Insurance [facility] Care Teams Shower Screen Installer Relationship Specialty Start Date End Date Cherie Luna MD [address] [place] [address] PCP - General Internal Medicine 10/10/20
--- OUTSIDE RECORDS SUMMARY | 2025-05-05 09:16 | XMS_ITS | Encounter Summary ---
Author Organization [facility] [place], Address [address] [place] [address] Phone Care Team Providers Care Steel Erecting Pusher Name Role Phone Cherie Luna MD Primary Care Provider [phone] Encounter Details Date Type Department Care Team (Late st Contact Info) Description 06/01/2024 Orders Only [facility], [address] [place] [phone] Jeanine Arguello PA [address] [place] [phone] Hematuria, not otherwise specified; Vitamin D deficiency, [...] Visit [facility], [address] [address] [place] [address] Jose Miguel Barrios MD [address] [facility] [address] [place] [phone] documented as of this encounter Visit Diagnoses Diagnosis Hematuria, not otherwise specified Vitamin D deficiency, not otherwise specified documented in this encounter Care Teams Steel Erecting Pusher Relationship Specialty Start Date End Date Cherie Luna MD [address] [place], [place] PCP - General Internal Medicine 10/10/20 documented as of this encounter
--- OUTSIDE RECORDS SUMMARY | 2025-05-05 09:16 | XMS_ITS | Encounter Summary ---
Author Organization [facility], Address [address] [place] [address] Phone Care Team Providers Care Workflow Developer Name Role Phone Cherie Luna MD Primary Care Provider [phone] Encounter Details Date Type Department Care Team (Late st Contact Info) Description 04/18/2023 Documentation Only [facility], [address] [facility] [phone] Jeanine Arguello PA [address] [place] [phone] Social History Tobacco Use Types Packs/Day Years [...] [facility], [address] [facility] [place] [address] Jose Miguel Barrios MD [address] [facility] [place] [address] documented as of this encounter Visit Diagnoses Not on filedocumented in this encounter Care Teams Workflow Developer Relationship Specialty Start Date End Date Cherie Luna MD [address] [place] [address] PCP - General Internal Medicine 10/10/20 documented as of this encounter
== END 2025-05-05 08:41 | disposition home or self-care (01) ==
LOC: HO.US 08:40
PROVIDERS: PCP Internal Medicine; Visit Provider Internal Medicine
DX: R10.11 Right upper quadrant pain (principal)
CPT/HCPCS: 76705

== ENCOUNTER → 2025-05-05 08:44 | Outpatient (BNV) | payer BC, SELFPAY | PROVIDERS: PCP Internal Medicine; Visit Provider Radiology Diagnostic Radiology | DX: R10.11 Right upper quadrant pain (principal) | CPT/HCPCS: 76705 ==

== ENCOUNTER 2025-05-12 14:33 | Outpatient (AMB) | payer OTHER, SELFPAY ==
[2025-05-12 14:36] VITALS: BMI 40.4
--- NOTE | 2025-05-12 14:36 | A.OFFVIS_ITS ---
VS Expanded 05/12/25 14:36 Height 5 ft 5 in Weight 242 lb 8.136 oz BMI 40.4 Intake Visit Reasons: obesity Allergies medroxyprogesterone (From Depo-Provera) Allergy (Unknown, Verified 03/09/25 16:20) Hives Nutrition Presentation Details: Pt presents for MNT for morbid obesity Patient reports doing well, recently on vacation Acknowledges that often when skipping lunch these may trigger increased appetite later on Patient reports having a gym membership however has not been participating at the gym in the past 6-8 months. Reports feeling much energetic when participating in the gym. YBM-Omsgmxc-Og.Jeor Equation Height: 5 ft 5 in Weight: 242 lb Resting Metabolic Rate: 1844.47 Calculated Activity Level: Sedentary Calories Needed to Maintain Weight: 2213.36 [facility] Medical History Morbid obesity due to excess calories Complex ovarian cyst Physical exam Left wrist sprain Hair loss Encounter to discuss test results Pelvic cramping Encounter for annual routine gynecological examination Local reaction to COVID-19 vaccine Fatigue Morbid obesity Rash Dizziness Cough Migraine with aura CHRISTO (generalized anxiety disorder) Severe major depression Depression CKD (chronic kidney disease) Asthma Surgical History No history of previous surgery Family History Mother Heart attack Father Deaf Family/Other Substance use disorder Mental health disorder Social History Housing: House Housing Other:: living with parents Alcohol intake: current Alcohol intake frequency: holidays/special occasions only Alcohol type: wine and hard liquor Patient Tobacco Use Status: Never used Tobacco e-Cigarette/Vaping Use: Never Used Second Hand Smoke Exposure: No Substance Use Type: Marijuana service: No Current occupational status: employed Current occupational exposures/hazards: No Sexual orientation: Bisexual Gender identity: Female Cognitive needs: No Hearing needs: No Vision needs: No Female Reproductive History Menstrual Age of Menarche: 11 Assessment & Plan Assessment & Plan (1) Morbid obesity due to excess calories: Code(s): E66.01 - Morbid (severe) obesity due to excess calories Category: Medical Plan: Educate Pt on 0308-1190 hakeem meal plan ? Used wt : 120kg/BMI 43 (03/2022), 115 kg (04/2023), 118 kg (), 110kg/BMI 40.4 (06/30), 100 kg (09/29), 109 kg (01/29), 110 kg (06/01) (BMI 40.4) Est kcal as per MSJ: 2200 (40% carb, 30% fat/prot) Est fluid needs: 1652-6258 ml/d (25-35 ml/kg bw) Rec fiber: increase to 8-10 g per day and gradually increase to 25 g/d or as tolerated Rec Na: < 2000 mg /d Educate patient on: (R= Reviewed, V = verbalizes understanding N/R= Needs review N/A= not applicable) * Food sources of carbohydrates and serving adequate serving sizes : R * Difference between complex carbohydrates and simple carbohydrates, role of fiber: R * Differences between fats (MUFA/PUFA/saturated fats, trans fats) and food sources of various fats: R, V * Food sources of sodium and salt and healthy modifications for heart health and kidney health: R * Vitamins and minerals: R, discussed Vit D sources of foods, b vit, iron * How to interpret food labels: R, V * Healthy Plate method concept: R * Physical activity: benefits and precaution: R * Mindful eating, lowering high calorie foods R, V * including fruit in diet , R * Lean protein sources of foods and hydration : R, V Patient Instructions: Resume physical activity: 30- 40 min at least once a week and gradually increase to 3 times a week Be mindful of heat and fats (oils, butter, creams, gravies) Be mindful of salt in the foods (sauces, Grave ease, dressings, condiments) , work on choosing lower salt options, read the labels and compare sodium per serving sizes. Use herbs, lemon, flavored oils as you work on reducing on salt intake Coding Level of Care Code Nutr Indiv Subseq (95181) Diagnoses Morbid obesity due to excess calories E66.01 Time Spent (min) 30
--- OUTSIDE RECORDS SUMMARY | 2025-05-12 17:42 | XMS_ITS | Data Portability ---
Author Organization [facility] Address [address] [place] [address] Assessment No assessment recorded. Plan of Treatment Reminders Order Date Submit Date Provider Last Modified By Organization Details Last Modified Time Details Appointments None recorded. Lab rapid strep group A, throat [address] [facility], [address] [place] [address], [address], 18:16:37 streptococc us group A, culture, throat 2022 023 [place] [facility], [address] [place] [address], [place], [address], 06:08:07 Referral None recorded. Procedures None recorded. Surgeries None recorded. Imaging None recorded. Medication Orders amoxicillin 875 mg tablet 2022 023 [id number], [address] [facility], [place], [address], 18:17:26 Patient TargetsNo targets recorded. Patient Instructions Encounter Date Encounter Id Patient Instructions Last Modified By Organization Details Last Modified Time 12/19/2022 [id number] sore throat: car e instructions Not available [...] undesirable side effects. Probiotics can be purchased [id number]-[id number] at your pharmacy in the form of [...] Range : Negat valentino Not Available [facility] ([facility]) [address] [facility], [place], [address], 12/22/2022 06:08:07 12/20/1912/19/2022 rapid strep group A, throa t Unknown Analyte Normal = Negati ve Not Available _nataliia muniz [address], [address], 12/19/2022 17:59:21 12/20/1912/19/2022 rapid strep group A, throa t Unknown Analyte negati ve Not Available _nataliia muniz [address], [address], 12/19/2022 17:59:21 Result Notes None recorded. Problems Name Problem SNOMED Code Status Onset Date Resolution Date Notes Provider Name and Address Organization Details Recorded Time Asthma 841812659 Active 023 RONAK joseph PA - [facility] 3 17:57:43 Polycystic ovary syndrome 173157065 Active 023 [facility] - [facility] [...] blood by Pulse oximetry Body temperature Systolic And Diastolic Provider Name and Address Organization Details Last Updated DateTime 3 165.1 cm 41.6 kg/m2 668649. 09 g 18 /min 82 /min 98 % 98 % 98.7 [degF] 106/72 mm[Hg] RONAK Singleton PA - [facility] [...] Diagnosis SNOMED-CT Code Diagnosis ICD10 Code Diagnosis IMO Codes Diagnosis Note [id number] [address] [address] [facility] [address] [place] [address] 10/10/2020 12:21:24 10/10/2020 12:54:59 [id number] Mohsen Us, CAGE CASHIER [facility] [address] [place] [address] 12/19/2022 17:41:33 12/19/2022 18:23:00 Streptococcal sore throat 55404837 J02.0 Health Concerns Section Related Observation LastModified by Organization Detai ls LastModified Time None Recorded Concern Status LastModified by Organization Details LastModified Time None Recorded Advance Directives Directive None Recorded Payers Insurance Date Sequence Insurance Name Policy Number Policy Coleman Covered Member ID Coleman Member ID Guarantor Name 12/19/2022 1 MARYANN (PPO) [id number] Stuart Cornejo [id number] Alison Cornejo Notes Date Note Type Note Provider Name and Address Organization Details Recorded Time 12/19/2022 text/html Sore throatRepor treva by PatientSore ThroatFor associated symptoms, patient reportssore throat,hoarseness,cough ing, andsinus pain/ congestionbut reportsno sputum production,no shortness of breath,no wheezing,no vomiting, andno nausea. For context, patient reportssick contactbut reportsno foreign travelandnon-smoker. For modifying factors, patient reportsexposed to strep non household. For source of patient information, patient reportsinformation obtained from patient,patient arrived at urgent care ambulatory, andlearning styles: auditory. For location, patient reportsthroat. For severity, patient reportsmild. For quality, patient reportssharpandburning. For onset/timing, patient reports3 days. Mohsne Us NP [address] [place], [address], [place] - [facility] 12/19/2022 18:18:03 OBGyn Episode No OBEpisode recorded.
--- OUTSIDE RECORDS SUMMARY | 2025-05-12 17:42 | XMS_ITS | Clinical Summary ---
Author Organization [facility] Address [address] [place] [address] Phone Care Team Providers Care Traffic Police Officer Name Role Phone Pcp, Unknown Primary Care [...] Not on file Insurance PPO PPO OUT [facility] PPO OUT OF [facility] PPO OUT OF [facility] PPO OUT [facility] PPO BLUE [place] OUT OF [facility] PPO [place] OUT OF STATE PPO Member Subscriber Plan / Payer (Ef fective 2017-Present) Name:Alison Dior Member ID:[id number] Relation to Subscriber:Child Name:OVIABY Subscriber ID:[id number] Date of :1901 (Home) Address: [address] [place], [place] Payer ID:[id number] (NAIC) Type:PPO Address: [address] [place] [phone] [place] OUT OF STATE PPO Care Teams Traffic Police Officer Relationship Specialty Start Date End Date Pcp, Unknown PCP - General 10/22/19 Additional Source Comments The information contained in this document represents components of the legal health record. It is not the complete legal health record.[facility]
[2025-05-18 09:56] VITALS: BMI 40.3
== END 2025-05-12 15:10 | disposition home or self-care (01) ==
LOC: HO.ENCR 14:33
PROVIDERS: PCP Internal Medicine; Visit Provider Dietitian, Registered
DX: E66.01 Morbid (severe) obesity due to excess calories (principal)

== ENCOUNTER → 2025-05-12 14:33 | Outpatient (BNVA) | payer OTHER, SELFPAY | PROVIDERS: PCP Internal Medicine; Visit Provider Dietitian, Registered | DX: E66.01 Morbid (severe) obesity due to excess calories (principal) | CPT/HCPCS: 97803 ==

== ENCOUNTER 2025-06-02 13:27 | Outpatient (REF) | payer OTHER, BC, SELFPAY ==
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
== END 2025-06-02 13:28 | disposition home or self-care (01) ==
LOC: HO.XRAY 13:27
PROVIDERS: PCP Internal Medicine; Visit Provider Internal Medicine
DX: S13.4XXA Sprain of ligaments of cervical spine, initial encounter (principal); E66.01 Morbid (severe) obesity due to excess calories; M25.511 Pain in right shoulder; M25.512 Pain in left shoulder; V89.2XXA Person injured in unspecified motor-vehicle accident, traffic, initial encounter; Y93.9 Activity, unspecified; Y92.9 Unspecified place or not applicable; Y99.9 Unspecified external cause status
CPT/HCPCS: 72100; 73090; 73100; 73590; 96127

== ENCOUNTER 2025-06-02 13:27 | Outpatient (AMB) | payer OTHER, BC, SELFPAY ==
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
[2025-06-02 13:30] VITALS: BP 90/60; PULSE 91; RESP 18; O2SAT 99; BMI 40.5
--- OUTSIDE RECORDS SUMMARY | 2025-06-02 16:35 | XMS_ITS | Clinical Summary ---
Author Organization [facility] Address [address] [place] [address] Phone Care Team Providers Care Incident Response Lead Name Role Phone Pcp, Unknown Primary Care [...] Not on file Insurance PPO PPO OUT [facility] PPO OUT OF [facility] PPO OUT OF [facility] PPO OUT [facility] PPO [place]UE [place] OUT OF [facility] PPO BLUE [place] OUT OF STATE PPO Member Subscriber Plan / Payer (Ef fective 2017-Present) Name:Alison Dior Member ID:[id number] Relation to Subscriber:Child Name:OVIABY Subscriber ID:[id number] Date of :1901 (Home) Address: [address] [place], [place] Payer ID:[id number] (NAIC) Type:PPO Address: [address] [place] [id number] BLUE [place] OUT OF STATE PPO Care Teams Incident Response Lead Relationship Specialty Start Date End Date Pcp, Unknown PCP - General 10/22/19 Additional Source Comments The information contained in this document represents components of the legal health record. It is not the complete legal health record.[facility]
--- OUTSIDE RECORDS SUMMARY | 2025-06-02 16:35 | XMS_ITS | Clinical Summary ---
Author Organization [facility], Address [address] [place] [address] [place] [address] Phone Care Team Providers Care Straw Baler Name Role Phone Cherie Luna MD Primary [...] Visit [facility] [place], [address] [place] [address] Jose Miguel Barrios MD [address] [facility] [place] [phone] Health Maintenance Due Date Last Done Comments Hepatitis B Vaccine (1 of 3 - 19+ 3-dose series) 07/18 Pneumococcal Vaccine: Peds ( 0 to 5 Years) and At-Risk Patients (6 to 49 Years) (1 of 2 - PCV) 2018 Influenza Vaccine (#1) 2025 Insurance [facility] Care Teams Straw Baler Relationship Specialty Start Date End Date Cherie Luna MD [address] [place] [address] PCP - General Internal Medicine 10/10/20
--- OUTSIDE RECORDS SUMMARY | 2025-06-02 16:35 | XMS_ITS | Encounter Summary ---
Author Organization [facility], Address [address] [place] [address] Phone Care Team Providers Care Software Development Engineer Name Role Phone Cherie Luna MD Primary Care Provider [phone] Encounter Details Date Type Department Care Team (Late st Contact Info) Description 10/09/2021 Documentation Only [facility], [address] [place] [phone] Jose Miguel Barrios MD [address] [facility] [place] [phone] Social History Tobacco Use Types Packs/Day Years [...] PM EST documented as of this encounter Functional Status * Question Answer Date of Assessment Author 104/68 10/09/2021 4:42 PM EDT Lazara rtJeanine, PA Height 65 10/09/2021 4:42 PM EDT Lazara rtJeanine, PA Weight 4233.6 10/09/2021 4:42 PM EDT Marlaube rtJeanine, PA * BMI (Calculated) Answer Date of Assessment Author 44 10/09/2021 4:42 PM EDT Jeanine Arguello, PA * BP Location Answer Date of Assessment Author Right upper arm 10/09/2021 4:42 PM EDT Jeanine Arguello, PA * Question Answer Date of Assessment Author BP 104/68 10/09/2021 4:42 PM EDT Lazara rtJeanine, PA Height 65 10/09/2021 4:42 PM EDT Lazara rtJeanine, PA Weight 4233.6 10/09/2021 4:42 PM EDT Josaahra rtAlfredi, PA * BMI (Calculated) Answer Date of Assessment Author 44 10/09/2021 4:42 PM EDT Jeanine Arguello PA * BP Location Answer Date of Assessment Author Right upper arm 10/09/2021 4:42 PM EDT Jeanine Arguello PA documented as of this encounter Plan of Treatment Upcoming Encounters Date Type Department Care Team (Late st Contact Info) Description 08/10/2025 4:00 PM EST Office [facility] [address] [place] [phone] Jose Miguel Barrios MD [address] [place] [address] [place] [phone] documented as of this encounter Visit Diagnoses Not on filedocumented in this encounter Care Teams Software Development Engineer Relationship Specialty Start Date End Date Cherie Luna MD [address] PCP - General Internal Medicine 10/10/20 documented as of this encounter
--- OUTSIDE RECORDS SUMMARY | 2025-06-02 16:35 | XMS_ITS | Encounter Summary ---
Author Organization [facility], Address [address] [place] [address] Phone Care Team Providers Care Superintendent Building Name Role Phone Cherie Luna MD Primary Care Provider [phone] Encounter Details Date Type Department Care Team (Late st Contact Info) Description 04/18/2023 Documentation Only [facility], [address] [place] [phone] Jeanine Arguello PA [address] [place] [phone] Social History Tobacco Use Types Packs/Day Years [...] Visit [facility], [address] [place] [address] Jose Miguel Barrios MD [address] [facility] [place] [phone] documented as of this encounter Visit Diagnoses Not on filedocumented in this encounter Care Teams Superintendent Building Relationship Specialty Start Date End Date Cherie Luna MD [address] [place] [address] PCP - General Internal Medicine 10/10/20 documented as of this encounter
--- OUTSIDE RECORDS SUMMARY | 2025-06-02 16:35 | XMS_ITS | Encounter Summary ---
Author Organization [facility], Address [address] [place] [address] Phone Care Team Providers Care Fraud Examiner Name Role Phone Cherie Luna MD Primary Care Provider [phone] Encounter Details Date Type Department Care Team (Late st Contact Info) Description 06/01/2024 Orders Only [facility], [address] [place] [phone] Jeanine Arguello PA [address] [place] [phone] Hematuria, not otherwise specified; Vitamin D deficiency, [...] Visit [facility], [address] [place] [address] Jose Miguel Barrios MD [address] [facility] [place] [phone] documented as of this encounter Visit Diagnoses Diagnosis Hematuria, not otherwise specified Vitamin D deficiency, not otherwise specified documented in this encounter Care Teams Fraud Examiner Relationship Specialty Start Date End Date Cherie Luna MD [address] [place], [place] PCP - General Internal Medicine 10/10/20 documented as of this encounter
== END 2025-06-02 14:12 | disposition home or self-care (01) ==
PROVIDERS: PCP Internal Medicine; Visit Provider Internal Medicine
DX: S13.4XXA Sprain of ligaments of cervical spine, initial encounter (principal); V89.2XXS Person injured in unspecified motor-vehicle accident, traffic, sequela

== ENCOUNTER → 2025-06-02 14:37 | Outpatient (BNV) | payer OTHER, BC, SELFPAY | PROVIDERS: PCP Internal Medicine; Visit Provider Radiology Diagnostic Radiology | DX: Z04.3 Encounter for examination and observation following other accident (principal) | CPT/HCPCS: 72100; 73090; 73100; 73590 ==

== ENCOUNTER 2025-06-09 15:00 | Outpatient (AMB) | payer OTHER, BC, SELFPAY ==
[2025-06-09 15:26] VITALS: BP 100/62; PULSE 91; O2SAT 98; BMI 40.5
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
--- OUTSIDE RECORDS SUMMARY | 2025-06-09 17:59 | XMS_ITS | Clinical Summary ---
Author Organization [facility] Address [address] [place] [id number] Phone Care Team Providers Care Director Of Recruitment And Admissions Name Role Phone Pcp, Unknown Primary Care [...] Not on file Insurance PPO PPO OUT [facility] PPO OUT OF [facility] PPO OUT OF [facility] PPO OUT [facility] PPO [place] OUT OF [facility] PPO [place] OUT OF STATE PPO Member Subscriber Plan / Payer (Ef fective 2017-Present) Name:Alison Dior Member ID:[id number] Relation to Subscriber:Child Name:OVIABY Subscriber ID:[id number] Date of :1901 (Home) Address: [address], [place] Payer ID:[id number] (NAIC) Type:PPO Address: [id number] [place] [id number] [place] OUT OF STATE PPO Care Teams Director Of Recruitment And Admissions Relationship Specialty Start Date End Date Pcp, Unknown PCP - General 10/22/19 Additional Source Comments The information contained in this document represents components of the legal health record. It is not the complete legal health record.[facility]
--- OUTSIDE RECORDS SUMMARY | 2025-06-09 17:59 | XMS_ITS | Data Portability ---
Author Organization [facility] Address [address] [place] [address] Assessment No assessment recorded. Plan of Treatment Reminders Order Date Submit Date Provider Last Modified By Organization Details Last Modified Time Details Appointments None recorded. Lab rapid strep group A, throat 2022 023 [email or web address] [facility], [address] [place] [address], [id number], 18:16:37 streptococc us group A, culture, throat 2022 023 J[place] [facility], [address] [place] [address], [place], [address], 06:08:07 Referral None recorded. Procedures None recorded. Surgeries None recorded. Imaging None recorded. Medication Orders amoxicillin [address] [id number], [address] [facility], [place], [address], 18:17:26 Patient TargetsNo targets recorded. Patient Instructions Encounter Date Encounter Id Patient Instructions Last Modified By Organization Details Last Modified Time 12/19/2022 [id number] sore throat: car e instructions Not available [...] undesirable side effects. Probiotics can be purchased [id number] at your pharmacy in the form of [...] Range : Negat valentino Not Available [facility] ([facility]) [address] [facility], [place], [address], 12/22/2022 06:08:07 12/20/1912/19/2022 rapid strep group A, throa t Unknown Analyte Normal = Negati ve Not Available _nataliia muniz [address], [address], 12/19/2022 17:59:21 12/20/1912/19/2022 rapid strep group A, throa t Unknown Analyte negati ve Not Available _natali[facility] mun[facility] [address], [address], 12/19/2022 17:59:21 Result Notes None recorded. Problems Name Problem SNOMED Code Status Onset Date Resolution Date Notes Provider Name and Address Organization Details Recorded Time Asthma [id number] Active 023 RONAK joseph [place] - [facility] 3 17:57:43 Polycystic ovary syndrome 075855495 Active 023 RONAK joseph [facility] - [facility] [...] Updated DateTime 3 165.1 cm 41.6 kg/m2 771932. 09 g 18 /min 82 /min 98 [...] ICD10 Code Diagnosis IMO Codes Diagnosis Note [id number] [facility] [address] [place] [phone] 10/10/2020 12:21:24 10/10/2020 12:54:59 [id number] Mohsen Us, [employer] [facility] [address] [place] [address] 12/19/2022 17:41:33 12/19/2022 18:23:00 Streptococcal sore throat 13170905 J02.0 Health Concerns Section Related Observation LastModified by Organization Detai ls LastModified Time None Recorded Concern Status LastModified by Organization Details LastModified Time None Recorded Advance Directives Directive None Recorded Payers Insurance Date Sequence Insurance Name Policy Number Policy Coleman Covered Member ID Coleman Member ID Guarantor Name 12/19/2022 1 [employer] (PPO) [id number] Stuart Cornejo [id number] Alison Cornejo Notes Date Note Type [...] Us NP [address] [place], [address], [place] - [facility] 12/19/2022 18:18:03 OBGyn Episode No OBEpisode recorded.
== END 2025-06-09 16:08 | disposition home or self-care (01) ==
LOC: HO.HMCH 15:01
PROVIDERS: PCP Internal Medicine; Visit Provider Internal Medicine
DX: S13.4XXD Sprain of ligaments of cervical spine, subsequent encounter (principal); V89.2XXD Person injured in unspecified motor-vehicle accident, traffic, subsequent encounter; Z04.3 Encounter for examination and observation following other accident

== ENCOUNTER → 2025-06-09 15:00 | Outpatient (BNVA) | payer OTHER, BC, SELFPAY | PROVIDERS: PCP Internal Medicine; Visit Provider Internal Medicine | DX: S13.4XXD Sprain of ligaments of cervical spine, subsequent encounter (principal); V89.2XXD Person injured in unspecified motor-vehicle accident, traffic, subsequent encounter | CPT/HCPCS: 96127 ==